=== PATIENT | male | born 1940 | race Caucasian/White ===

== ENCOUNTER 2016-12-10 15:01 | Emergency (ER) | payer MEDICARE ==
[~2016-12-10] VITALS: Ht 170.2 cm; Wt 70.9 kg
[~2016-12-10 15:01] MED LIST: AMLO5TAB2 PO; AZIT500T77 PO; CEFD300C37 PO; HYDR-3240 PO; HYDR-3343 PO; LACT1CAP24 PO; LISI-167; LISI-170 PO; LISI40TA PO; METO100T5 PO; METO50TA82 PO; OMEP-110 PO; TRAM50TA2 PO
[2016-12-10] MEDS ORDERED: ONDANSETRON 2MG/ML, 2ML IVPush ONE (15:30)
[2016-12-10] MEDS ORDERED: SODIUM CHLORIDE 0.9% 1,000ML IVBOLUS ONE (15:30)
[2016-12-10 16:14] LABS: BLOOD UREA NITROGEN 7 mg/dL (7-18)
[2016-12-10 16:17] LABS: ASPARTATE AMINO TRANSFERASE 40 U/L (15-37)
[2016-12-10] MEDS ORDERED: ONDANSETRON 2MG/ML, 2ML ONE (16:33)
[2016-12-10 18:43] VITALS: BP 174/98
== END 2016-12-10 19:32 | disposition home or self-care (01) ==
LOC: ED 17:53
DX: J20.9 Acute bronchitis, unspecified (principal); K40.91 Unilateral inguinal hernia, without obstruction or gangrene, recurrent; F10.10 Alcohol abuse, uncomplicated; I10 Essential (primary) hypertension; Z87.891 Personal history of nicotine dependence
CPT/HCPCS: 36415; 74022; 80053; 81003; 85025; 96361; 96374; 99285; J2405; J7030

== ENCOUNTER 2017-02-06 21:26 | Inpatient (IN) | payer MEDICARE ==
[~2017-02-06] VITALS: Ht 172.7 cm; Wt 73.9 kg
[2017-02-06] MEDS ORDERED: SODIUM CHLORIDE 0.9% 1,000ML IVBOLUS ONE (22:30)
[2017-02-06] MEDS ORDERED: SODIUM CHLORIDE FLUSH 10ML SYR IVF ONE (22:30)
[2017-02-06 22:45] LABS: ASPARTATE AMINO TRANSFERASE 54 U/L (15-37); BLOOD UREA NITROGEN 13 mg/dL (7-18)
[2017-02-06] MEDS ORDERED: ACETAMINOPHEN 500 MG TABLET ONE (23:29)
[2017-02-06] MEDS ORDERED: ACETAMINOPHEN 500 MG TABLET PO ONE (23:30)
[2017-02-07] MEDS ORDERED: NS + 20MEQ KCL 1,000 ML IV SCH (01:40)
[2017-02-07] MEDS ORDERED: ACETAMINOPHEN 325 MG TABLET PO PRN (02:00)
[2017-02-07] MEDS ORDERED: morphine SULFATE 10 MG/ML, 1ML IVPush PRN (02:00)
[2017-02-07] MEDS ORDERED: POLYETHYLENE GLYCOL 17 GM PACKET PO PRN (02:00)
[2017-02-07] MEDS ORDERED: ONDANSETRON 2MG/ML, 2ML IVPush PRN (02:00)
[2017-02-07] MEDS ORDERED: DOCUSATE 100 MG CAPSULE PO PRN (02:00)
[2017-02-07 02:45] VITALS: BP 144/85
[2017-02-07] MEDS: CEFTRIAXONE PMX 1GM/50ML 50 ML IV SCH (03:08)
[2017-02-07] MEDS: ENOXAPARIN 40 MG/0.4 ML SQ SCH (05:42)
[2017-02-07 07:32] VITALS: BP 168/88
[2017-02-07] MEDS: LORazepam 1MG TABLET PO PRN ×2 (07:50→11:28)
[2017-02-07] MEDS: SENNA/DOCUSATE TABLET PO SCH (11:27)
[2017-02-07] MEDS: THIAMINE 100MG TABLET PO SCH (11:27)
[2017-02-07] MEDS: FOLIC ACID 1 MG TABLET PO SCH (11:27)
[2017-02-07] MEDS: MULTIVITAMIN 1 TABLET PO SCH (11:27)
[2017-02-07] MEDS ORDERED: LORazepam 2 MG/ML, 1ML IV PRN ×5 (13:00)
[2017-02-07] MEDS ORDERED: LORazepam 1MG TABLET PO PRN ×4 (13:00)
[2017-02-07] MEDS ORDERED: LORazepam 0.5MG TABLET PO PRN (13:00)
[2017-02-07 14:18] VITALS: BP 137/72
[2017-02-07] MEDS: CHLORDIAZEPOXIDE 25 MG CAPSULE PO SCH ×2 (16:33→21:12)
[2017-02-07 20:01] VITALS: BP 149/94
[2017-02-08 02:00] VITALS: BP 141/87
[2017-02-08] MEDS: CEFTRIAXONE PMX 1GM/50ML 50 ML IV SCH (03:33)
[2017-02-08] MEDS: ENOXAPARIN 40 MG/0.4 ML SQ SCH (05:24)
[2017-02-08 05:53] LABS: ASPARTATE AMINO TRANSFERASE 45 U/L (15-37); BLOOD UREA NITROGEN 8 mg/dL (7-18)
[2017-02-08 06:48] VITALS: BP 164/90
[2017-02-08] MEDS ORDERED: MAGNESIUM SULFATE PMX 2GM/50ML 50 ML IV ONE (08:30)
[2017-02-08] MEDS: SENNA/DOCUSATE TABLET PO SCH (09:00)
[2017-02-08] MEDS: MAGNESIUM OXIDE 400 MG TABLET PO SCH (09:25)
[2017-02-08] MEDS: FOLIC ACID 1 MG TABLET PO SCH (09:25)
[2017-02-08] MEDS: THIAMINE 100MG TABLET PO SCH (09:25)
[2017-02-08] MEDS: MULTIVITAMIN 1 TABLET PO SCH (09:25)
[2017-02-08] MEDS: CHLORDIAZEPOXIDE 25 MG CAPSULE PO SCH (09:25)
[2017-02-08] MEDS: POTASSIUM ACID PHOSPHATE 500 MG TABLET.SOL PO SCH ×3 (09:26→21:06)
[2017-02-08] MEDS: POTASSIUM CHLORIDE 20 MEQ TAB.ER.PRT PO SCH ×2 (12:59→16:41)
[2017-02-08 13:33] VITALS: BP 149/80
[2017-02-08 19:20] VITALS: BP 125/77
[2017-02-08] MEDS ORDERED: morphine SULFATE 10 MG/ML, 1ML IVPush PRN (21:00)
[2017-02-09 01:53] VITALS: BP 119/76
[2017-02-09] MEDS: ACETAMINOPHEN 325 MG TABLET PO PRN ×3 (02:00→22:34)
[2017-02-09] MEDS: POTASSIUM ACID PHOSPHATE 500 MG TABLET.SOL PO SCH ×4 (02:40→22:31)
[2017-02-09] MEDS: CEFTRIAXONE PMX 1GM/50ML 50 ML IV SCH (03:06)
[2017-02-09] MEDS: ENOXAPARIN 40 MG/0.4 ML SQ SCH (05:16)
[2017-02-09 06:10] LABS: BLOOD UREA NITROGEN 6 mg/dL (7-18)
[2017-02-09 08:00] VITALS: BP 140/92
[2017-02-09] MEDS: SENNA/DOCUSATE TABLET PO SCH (09:00)
[2017-02-09] MEDS: POTASSIUM CHLORIDE 20 MEQ TAB.ER.PRT PO SCH ×4 (09:28→16:34)
[2017-02-09] MEDS: THIAMINE 100MG TABLET PO SCH (09:28)
[2017-02-09] MEDS: MULTIVITAMIN 1 TABLET PO SCH (09:28)
[2017-02-09] MEDS: MAGNESIUM OXIDE 400 MG TABLET PO SCH (09:28)
[2017-02-09] MEDS: FOLIC ACID 1 MG TABLET PO SCH (09:28)
[2017-02-09 14:00] VITALS: BP 140/89
[2017-02-09 19:00] VITALS: BP 124/73
[2017-02-10 02:22] VITALS: BP 119/59
[2017-02-10] MEDS: CEFTRIAXONE PMX 1GM/50ML 50 ML IV SCH (03:44)
[2017-02-10] MEDS: POTASSIUM ACID PHOSPHATE 500 MG TABLET.SOL PO SCH ×4 (03:44→20:56)
[2017-02-10] MEDS: ENOXAPARIN 40 MG/0.4 ML SQ SCH (05:19)
[2017-02-10 06:21] LABS: BLOOD UREA NITROGEN 8 mg/dL (7-18)
[2017-02-10 08:20] VITALS: BP 115/74
[2017-02-10] MEDS: FOLIC ACID 1 MG TABLET PO SCH (09:23)
[2017-02-10] MEDS: MULTIVITAMIN 1 TABLET PO SCH (09:23)
[2017-02-10] MEDS: MAGNESIUM OXIDE 400 MG TABLET PO SCH (09:23)
[2017-02-10] MEDS: THIAMINE 100MG TABLET PO SCH (09:24)
[2017-02-10] MEDS: SENNA/DOCUSATE TABLET PO SCH (09:24)
[2017-02-10 13:14] VITALS: BP 133/90
[2017-02-10 19:58] VITALS: BP 123/71
[2017-02-11 01:41] VITALS: BP 120/71
[2017-02-11] MEDS: CEFTRIAXONE PMX 1GM/50ML 50 ML IV SCH (03:30)
[2017-02-11] MEDS: POTASSIUM ACID PHOSPHATE 500 MG TABLET.SOL PO SCH ×2 (03:30→08:48)
[2017-02-11 06:24] VITALS: BP 138/82
[2017-02-11] MEDS: ENOXAPARIN 40 MG/0.4 ML SQ SCH (06:37)
[2017-02-11] MEDS: MULTIVITAMIN 1 TABLET PO SCH (08:48)
[2017-02-11] MEDS: THIAMINE 100MG TABLET PO SCH (08:48)
[2017-02-11] MEDS: FOLIC ACID 1 MG TABLET PO SCH (08:48)
[2017-02-11] MEDS: MAGNESIUM OXIDE 400 MG TABLET PO SCH (08:48)
[2017-02-11] MEDS: SENNA/DOCUSATE TABLET PO SCH (08:49)
[2017-02-11] MEDS ORDERED: METH500T97 PO (10:34)
[2017-02-11 13:12] VITALS: BP 127/81
== END 2017-02-11 13:27 | disposition home or self-care (01) | DRG 871 ==
LOC: ED 21:42 → EDIP 02-07 01:16 → SUATTDRO 02-07 01:27 → 4NOR 02-07 02:25 → DCLOUNGE 02-11 13:16
PROVIDERS: ADMIT Family Medicine; ATTEND Internal Medicine
DX: A41.9 Sepsis, unspecified organism (principal); G93.41 Metabolic encephalopathy; E43 Unspecified severe protein-calorie malnutrition; N39.0 Urinary tract infection, site not specified; F10.239 Alcohol dependence with withdrawal, unspecified; D64.9 Anemia, unspecified; D69.6 Thrombocytopenia, unspecified; E83.39 Other disorders of phosphorus metabolism; E83.42 Hypomagnesemia; E87.6 Hypokalemia; G89.29 Other chronic pain; I10 Essential (primary) hypertension; K29.70 Gastritis, unspecified, without bleeding; M43.10 Spondylolisthesis, site unspecified; K57.90 Diverticulosis of intestine, part unspecified, without perforation or abscess without bleeding; M19.90 Unspecified osteoarthritis, unspecified site; Z59.0 Homelessness; Z68.24 Body mass index [BMI] 24.0-24.9, adult
CPT/HCPCS: 36415; 71010; 72148; 80048; 80053; 81001; 83605; 83690; 83735; 83880; 84100; 85025; 85610; 87040; 87086; 93005; 96360; J0696; J1650; J3480; J3475; J7030

== ENCOUNTER 2017-10-06 09:42 | Emergency (ER) | payer MEDICARE ==
[~2017-10-06] VITALS: Ht 172.7 cm; Wt 90.0 kg
[~2017-10-06 09:42] MED LIST changes: +AZIT500T5 PO; -AZIT500T77 PO; +METH500T97 PO
[2017-10-06 09:52] VITALS: BP 154/85
[2017-10-06] MEDS ORDERED: ALBUTEROL/IPRATROPIUM 2.5MG/0.5MG, 3 ML NPPB SCH (10:30)
[2017-10-06] MEDS ORDERED: THIAMINE 100MG TABLET PO ONE (11:00)
[2017-10-06] MEDS ORDERED: SODIUM CHLORIDE 0.9% 1,000ML IVBOLUS ONE (11:00)
[2017-10-06] MEDS ORDERED: SODIUM CHLORIDE FLUSH 10ML SYR IVF ONE (11:30)
== END 2017-10-06 10:58 | disposition home or self-care (01) ==
LOC: ED 10:20
DX: F10.229 Alcohol dependence with intoxication, unspecified (principal); F43.0 Acute stress reaction; I10 Essential (primary) hypertension; Z87.891 Personal history of nicotine dependence; Y90.9 Presence of alcohol in blood, level not specified
CPT/HCPCS: 99283

== ENCOUNTER 2018-04-24 12:46 | Inpatient (IN) | payer MEDICARE ==
[~2018-04-24] VITALS: Ht 172.7 cm; Wt 77.3 kg
[~2018-04-24 12:46] MED LIST changes: -AMLO5TAB2 PO; +AMLO5TAB7 PO
[2018-04-24] MEDS ORDERED: THIAMINE 100MG TABLET PO ONE (13:00)
[2018-04-24 13:22] LABS: MEAN CORPUSCULAR HEMOGLOBIN 29.5 pg (27.5-34.5); MEAN CORPUSCULAR HGB CONC 33.4 g/dL (33.2-36.2); MEAN CORPUSCULAR VOLUME 88.5 fL (81-97); MEAN PLATELET VOLUME 6.9 fL (7.4-10.4); PLATELET COUNT 269 x10^3/uL (130-400); RED BLOOD COUNT 4.74 x10^6/uL (4.38-5.82); RED CELL DISTRIBUTION WIDTH 23.9 % (9.4-14.8)
[2018-04-24 13:28] LABS: ALBUMIN 3.2 g/dL (3.4-5.0); ANION GAP 8 mmol/L (5-15); CALCIUM 7.8 mg/dL (8.5-10.1); CHLORIDE 108 mmol/L (98-107); CREATININE 0.76 mg/dL (0.7-1.3)
[2018-04-24] MEDS ORDERED: PLEASE ENTER HEIGHT AND WEIGHT MC SCH (13:30)
[2018-04-24] MEDS ORDERED: DIPH,PERTUSS(ACELL),TET VAC/PF 0.5 ML IM-VACC ONE ×2 (13:30→13:35)
[2018-04-24] MEDS ORDERED: THIAMINE 100MG TABLET ONE (13:35)
[2018-04-24 14:05] LABS: BASOPHILS # (AUTO) 0.06 x10^3/uL (0-0.1); BASOPHILS % (AUTO) 1 % (0-1); EOSINOPHILS % (AUTO) 3 % (1-7); LYMPHOCYTES # (AUTO) 2.63 x10^3/uL (1-3.4); LYMPHOCYTES % (AUTO) 24 % (22-44); MD MORPH REVIEW ONLY; MONOCYTES # (AUTO) 0.97 x10^3/uL (0.2-0.8); MONOCYTES % (AUTO) 9 % (2-9); NEUTROPHILS # (AUTO) 7.18 x10^3/uL (1.8-6.8); NEUTROPHILS % (AUTO) 64 % (42-75)
[2018-04-24 14:08] LABS: <PLATELET ESTIMATE> ADEQUATE; <PLT MORPHOLOGY> NORMAL PLT MORPH; ANISOCYTOSIS 2+
[2018-04-24] MEDS ORDERED: BACITRACIN ZINC OINT 500U/GM, 0.9 GM ONE (14:37)
[2018-04-24 14:48] LABS: INTERNATIONAL NORMALIZED RATIO 0.99 (0.93-1.1); PROTHROMBIN TIME 10.3 Seconds (9.6-11.5)
[2018-04-24] MEDS ORDERED: LIDOCAINE-MPF 2%, 2ML ONE (14:55)
[2018-04-24] MEDS ORDERED: CEFAZOLIN PMX 1GM/50ML 50 ML IVPB ONE (15:30)
[2018-04-24] MEDS ORDERED: CEFAZOLIN PMX 1GM/50ML 50 ML ONE (15:33)
[2018-04-24] MEDS ORDERED: DOCUSATE 100 MG CAPSULE PO PRN (16:30)
[2018-04-24] MEDS ORDERED: ACETAMINOPHEN 325 MG TABLET PO PRN (16:30)
[2018-04-24] MEDS ORDERED: ONDANSETRON 2MG/ML, 2ML IVPush PRN (16:30)
[2018-04-24] MEDS ORDERED: ONDANSETRON ODT 4 MG PO PRN (16:30)
[2018-04-24] MEDS ORDERED: ENALAPRILAT 1.25 MG/ML, 2ML IVPush PRN (16:30)
[2018-04-24] MEDS ORDERED: morphine SULFATE 10 MG/ML, 1ML IVPush PRN (16:30)
[2018-04-24] MEDS ORDERED: POLYETHYLENE GLYCOL 17 GM PACKET PO PRN (16:30)
[2018-04-24] MEDS ORDERED: BISACODYL 10 MG SUPP PR PRN (16:30)
[2018-04-24] MEDS ORDERED: POTASSIUM CHLORIDE 20 MEQ, MAGNESIUM SULFATE 2 GM, THIAMINE 200 MG, MVI ADULT 10 ML, FO... IV SCH (17:00)
[2018-04-25 04:00] VITALS: BP 158/101
[2018-04-25 04:55] LABS: CHLORIDE 112 mmol/L (98-107)
[2018-04-25 04:58] LABS: MEAN CORPUSCULAR HEMOGLOBIN 29.3 pg (27.5-34.5); MEAN CORPUSCULAR HGB CONC 33.4 g/dL (33.2-36.2); MEAN CORPUSCULAR VOLUME 87.8 fL (81-97); PLATELET COUNT 214 x10^3/uL (130-400); RED BLOOD COUNT 4.18 x10^6/uL (4.38-5.82); RED CELL DISTRIBUTION WIDTH 24.2 % (9.4-14.8)
[2018-04-25 05:11] LABS: ALANINE AMINOTRANSFERASE 19 U/L (12-78); ALBUMIN 2.6 g/dL (3.4-5.0); ALKALINE PHOSPHATASE 112 U/L (45-117); ANION GAP 9 mmol/L (5-15); BILIRUBIN,TOTAL 1.2 mg/dL (0.2-1.0); CALCIUM 7.1 mg/dL (8.5-10.1); CREATININE 0.71 mg/dL (0.7-1.3); TOTAL PROTEIN 5.7 g/dL (6.4-8.2)
[2018-04-25 05:54] LABS: BASOPHILS # (AUTO) 0.04 x10^3/uL (0-0.1); BASOPHILS % (AUTO) 0 % (0-1); EOSINOPHILS # (AUTO) 0.28 x10^3/uL (0-0.4); EOSINOPHILS % (AUTO) 3 % (1-7); LYMPHOCYTES # (AUTO) 1.55 x10^3/uL (1-3.4); LYMPHOCYTES % (AUTO) 17 % (22-44); MD SCAN; MONOCYTES # (AUTO) 0.78 x10^3/uL (0.2-0.8); MONOCYTES % (AUTO) 8 % (2-9); NEUTROPHILS # (AUTO) 6.73 x10^3/uL (1.8-6.8); NEUTROPHILS % (AUTO) 72 % (42-75)
[2018-04-25] MEDS: LABETALOL 5MG/ML, 20ML IVPush PRN (08:05)
[2018-04-25] MEDS ORDERED: CHLORDIAZEPOXIDE 25 MG CAPSULE PO PRN (11:30)
[2018-04-25] MEDS ORDERED: LORazepam 1MG TABLET PO PRN (11:30)
[2018-04-25] MEDS: THIAMINE 100MG TABLET PO SCH (14:05)
[2018-04-25] MEDS: PANTOPROZOLE 40MG TABLET PO SCH (14:05)
[2018-04-25] MEDS: MULTIVITAMINS/MINERALS TABLET PO SCH (14:05)
[2018-04-25] MEDS: LISINOPRIL 10 MG TABLET PO SCH (14:05)
[2018-04-25 18:32] VITALS: BP 156/78
[2018-04-26] MEDS: LISINOPRIL 10 MG TABLET PO SCH ×3 (00:04→23:23)
[2018-04-26 03:40] VITALS: BP 188/87
[2018-04-26 05:31] LABS: ANION GAP 8 mmol/L (5-15); CALCIUM 7.5 mg/dL (8.5-10.1); CHLORIDE 111 mmol/L (98-107)
[2018-04-26 05:46] LABS: MEAN CORPUSCULAR HEMOGLOBIN 30.1 pg (27.5-34.5); MEAN CORPUSCULAR HGB CONC 33.7 g/dL (33.2-36.2); MEAN CORPUSCULAR VOLUME 89.3 fL (81-97); MEAN PLATELET VOLUME 7.3 fL (7.4-10.4); PLATELET COUNT 198 x10^3/uL (130-400); RED BLOOD COUNT 3.95 x10^6/uL (4.38-5.82); RED CELL DISTRIBUTION WIDTH 24.3 % (9.4-14.8)
[2018-04-26 06:29] LABS: BASOPHILS # (AUTO) 0.07 x10^3/uL (0-0.1); BASOPHILS % (AUTO) 1 % (0-1); EOSINOPHILS # (AUTO) 0.29 x10^3/uL (0-0.4); EOSINOPHILS % (AUTO) 3 % (1-7); LYMPHOCYTES # (AUTO) 1.45 x10^3/uL (1-3.4); LYMPHOCYTES % (AUTO) 17 % (22-44); MD SCAN; MONOCYTES # (AUTO) 0.73 x10^3/uL (0.2-0.8); MONOCYTES % (AUTO) 9 % (2-9); NEUTROPHILS # (AUTO) 5.98 x10^3/uL (1.8-6.8); NEUTROPHILS % (AUTO) 70 % (42-75)
[2018-04-26 08:10] VITALS: BP 154/88
[2018-04-26] MEDS: PANTOPROZOLE 40MG TABLET PO SCH (08:12)
[2018-04-26] MEDS: FOLIC ACID 1 MG TABLET PO SCH (08:12)
[2018-04-26] MEDS: MULTIVITAMINS/MINERALS TABLET PO SCH (08:12)
[2018-04-26] MEDS: THIAMINE 100MG TABLET PO SCH (12:00)
[2018-04-26 20:48] VITALS: BP 190/113
[2018-04-26 23:20] VITALS: BP 167/72
[2018-04-26] MEDS: LABETALOL 5MG/ML, 20ML IVPush PRN (23:23)
[2018-04-27] VITALS (8 sets, daily range): BP systolic 130–172; BP diastolic 72–107
[2018-04-27 01:26] LABS: CLOSTRIDIUM DIFFICILE ANTIGEN POSITIVE; CLOSTRIDIUM DIFFICILE TOXIN NEGATIVE (Negative)
[2018-04-27] MEDS: PANTOPROZOLE 40MG TABLET PO SCH (08:05)
[2018-04-27] MEDS: FOLIC ACID 1 MG TABLET PO SCH (08:05)
[2018-04-27] MEDS: MULTIVITAMINS/MINERALS TABLET PO SCH (08:05)
[2018-04-27] MEDS: THIAMINE 100MG TABLET PO SCH (12:22)
[2018-04-27] MEDS: LISINOPRIL 10 MG TABLET PO SCH ×2 (12:22→22:35)
[2018-04-28 00:33] VITALS: BP 145/75
[2018-04-28 07:30] VITALS: BP 141/79
[2018-04-28] MEDS: PANTOPROZOLE 40MG TABLET PO SCH (07:54)
[2018-04-28] MEDS: MULTIVITAMINS/MINERALS TABLET PO SCH (07:54)
[2018-04-28] MEDS: FOLIC ACID 1 MG TABLET PO SCH (07:54)
[2018-04-28] MEDS: LISINOPRIL 10 MG TABLET PO SCH (11:10)
[2018-04-28] MEDS: THIAMINE 100MG TABLET PO SCH (11:11)
[2018-04-28] MEDS ORDERED: FOLI-17 PO (12:15)
[2018-04-28] MEDS ORDERED: ACET325T14 PO (12:15)
[2018-04-28] MEDS ORDERED: THIA100T67 PO (12:15)
[2018-04-28] MEDS ORDERED: PANT40TA5 PO (12:15)
[2018-04-28] MEDS ORDERED: MULT-484 PO (12:15)
[2018-04-28] MEDS ORDERED: LISI-167 PO (12:15)
[2018-04-28 13:12] VITALS: BP 139/72
== END 2018-04-28 14:31 | disposition home or self-care (01) | DRG 86 ==
LOC: ED 15:43 → EDIP 15:44 → CCU 16:38 → 4EST 04-25 17:53
PROVIDERS: ADMIT Internal Medicine; ATTEND Internal Medicine
PROC: 2W3KX2Z Immobilization of Left Finger using Cast (ICD-10-PCS; principal; 2018-04-24)
DX: S06.5X0A Traumatic subdural hemorrhage without loss of consciousness, initial encounter (principal); F10.239 Alcohol dependence with withdrawal, unspecified; S62.608A Fracture of unspecified phalanx of other finger, initial encounter for closed fracture; M54.30 Sciatica, unspecified side; K57.90 Diverticulosis of intestine, part unspecified, without perforation or abscess without bleeding; S61.412A Laceration without foreign body of left hand, initial encounter; I10 Essential (primary) hypertension; W01.0XXA Fall on same level from slipping, tripping and stumbling without subsequent striking against object, initial encounter; Y93.01 Activity, walking, marching and hiking; D72.829 Elevated white blood cell count, unspecified; M43.10 Spondylolisthesis, site unspecified; F10.229 Alcohol dependence with intoxication, unspecified; K46.9 Unspecified abdominal hernia without obstruction or gangrene; Y92.89 Other specified places as the place of occurrence of the external cause; Z88.5 Allergy status to narcotic agent; Z98.1 Arthrodesis status; Z91.19 Patient's noncompliance with other medical treatment and regimen; Z90.49 Acquired absence of other specified parts of digestive tract; Y99.8 Other external cause status
CPT/HCPCS: 36415; 70450; 70486; 72125; 80048; 80053; 80307; 82040; 83735; 84100; 84443; 85025; 85610; 85730; 87081; 87324; 87493; 90471; 90715; 93005; 96374; 99285; G0378; J0690; J3411; J3475; J3480; J7042

== ENCOUNTER 2018-06-10 18:50 | Inpatient (IN) | payer MEDICARE ==
[~2018-06-10] VITALS: Ht 170.2 cm; Wt 81.1 kg
[~2018-06-10 18:50] MED LIST changes: +ACET325T14 PO; +FOLI-17 PO; +LISI-167 PO; +MULT-484 PO; +PANT40TA5 PO; +THIA100T67 PO
[2018-06-10] MEDS ORDERED: CEFTRIAXONE 1,000 MG in SODIUM CHLORIDE 0.9% 50 ML IVPB ONE (19:30)
[2018-06-10] MEDS ORDERED: SODIUM CHLORIDE FLUSH 10ML SYR IVF ONE (19:30)
[2018-06-10 19:57] LABS: MEAN CORPUSCULAR HEMOGLOBIN 30.9 pg (27.5-34.5); MEAN CORPUSCULAR HGB CONC 32.7 g/dL (33.2-36.2); MEAN CORPUSCULAR VOLUME 94.4 fL (81-97); MEAN PLATELET VOLUME 7.1 fL (7.4-10.4); PLATELET COUNT 422 x10^3/uL (130-400); RED CELL DISTRIBUTION WIDTH 16.6 % (9.4-14.8)
[2018-06-10 20:10] LABS: ALANINE AMINOTRANSFERASE 24 U/L (12-78); ALBUMIN 2.5 g/dL (3.4-5.0); ANION GAP 10 mmol/L (5-15); CALCIUM 8.1 mg/dL (8.5-10.1); CHLORIDE 104 mmol/L (98-107); CREATININE 0.63 mg/dL (0.7-1.3)
[2018-06-10] MEDS ORDERED: CEFTRIAXONE PMX 1GM/50ML 50 ML ONE (20:10)
[2018-06-10 20:13] LABS: ALKALINE PHOSPHATASE 161 U/L (45-117); BASOPHILS # (AUTO) 0.06 x10^3/uL (0-0.1); BASOPHILS % (AUTO) 1 % (0-1); BILIRUBIN,TOTAL 0.4 mg/dL (0.2-1.0); EOSINOPHILS # (AUTO) 1.85 x10^3/uL (0-0.4); EOSINOPHILS % (AUTO) 15 % (1-7); LYMPHOCYTES # (AUTO) 1.34 x10^3/uL (1-3.4); LYMPHOCYTES % (AUTO) 11 % (22-44); MD SCAN; MONOCYTES # (AUTO) 1.04 x10^3/uL (0.2-0.8); MONOCYTES % (AUTO) 8 % (2-9); NEUTROPHILS # (AUTO) 8.37 x10^3/uL (1.8-6.8); NEUTROPHILS % (AUTO) 66 % (42-75); TOTAL PROTEIN 7.5 g/dL (6.4-8.2)
[2018-06-10] MEDS ORDERED: DIPHENHYDRAMINE 25 MG CAPSULE PO ONE (21:00)
[2018-06-10] MEDS ORDERED: HYDROcodone/APAP 5/325 TABLET PO ONE (21:00)
[2018-06-10] MEDS ORDERED: HYDROcodone/APAP 5/325 TABLET ONE (21:02)
[2018-06-10] MEDS ORDERED: DIPHENHYDRAMINE 25 MG CAPSULE ONE (21:02)
[2018-06-10] MEDS ORDERED: LISINOPRIL 10 MG TABLET ONE (21:17)
[2018-06-10] MEDS: LISINOPRIL 10 MG TABLET PO SCH (21:20)
[2018-06-10] MEDS: AMPICILLIN/SULBACTAM 3 GM in SODIUM CHLORIDE 0.9% 100 ML IV SCH (21:21)
[2018-06-10] MEDS ORDERED: HEPARIN 5,000 UNITS/ML, 1ML ONE (21:26)
[2018-06-10] MEDS: HEPARIN 5,000 UNITS/ML, 1ML SQ SCH (21:29)
[2018-06-10] MEDS ORDERED: POLYETHYLENE GLYCOL 17 GM PACKET PO PRN (21:30)
[2018-06-10] MEDS ORDERED: VANCOMYCIN PER PHARMACY MC PRN (21:30)
[2018-06-10] MEDS ORDERED: SODIUM CHLORIDE FLUSH 10ML SYR IVF PRN (21:30)
[2018-06-10] MEDS ORDERED: BISACODYL 10 MG SUPP PR PRN (21:30)
[2018-06-10] MEDS ORDERED: ACETAMINOPHEN 325 MG TABLET PO PRN (21:30)
[2018-06-10] MEDS ORDERED: THIAMINE 100MG TABLET ONE (22:48)
[2018-06-10 23:00] VITALS: BP 152/100
[2018-06-10] MEDS ORDERED: VANCOMYCIN 1,200 MG in SODIUM CHLORIDE 0.9% 250 ML IV SCH (23:00)
[2018-06-10] MEDS ORDERED: PHARMACOKINETIC MONITORING MC PRN (23:00)
[2018-06-10] MEDS ORDERED: PHARMACOKINETIC CONSULTATION MC ONE (23:00)
[2018-06-10] MEDS: THIAMINE 100MG TABLET PO SCH (23:02)
[2018-06-10] MEDS: SODIUM CHLORIDE 0.9% 1,000 ML IV SCH (23:02)
[2018-06-10] MEDS ORDERED: hydrALAzine 20 MG/ML, 1ML IV PRN (23:30)
[2018-06-10] MEDS: PERMETHRIN CRM 5%, 60GM TP SCH (23:40)
[2018-06-11 03:20] VITALS: BP 124/68
[2018-06-11] MEDS: AMPICILLIN/SULBACTAM 3 GM in SODIUM CHLORIDE 0.9% 100 ML IV SCH ×4 (03:35→21:19)
[2018-06-11 05:00] LABS: BASOPHILS # (AUTO) 0.16 x10^3/uL (0-0.1); BASOPHILS % (AUTO) 1 % (0-1); EOSINOPHILS # (AUTO) 0.59 x10^3/uL (0-0.4); EOSINOPHILS % (AUTO) 4 % (1-7); LYMPHOCYTES # (AUTO) 0.81 x10^3/uL (1-3.4); LYMPHOCYTES % (AUTO) 6 % (22-44); MD NO; MEAN CORPUSCULAR HEMOGLOBIN 30.8 pg (27.5-34.5); MEAN CORPUSCULAR VOLUME 93.5 fL (81-97); MEAN PLATELET VOLUME 7.2 fL (7.4-10.4); MONOCYTES # (AUTO) 1.13 x10^3/uL (0.2-0.8); MONOCYTES % (AUTO) 9 % (2-9); NEUTROPHILS # (AUTO) 10.59 x10^3/uL (1.8-6.8); NEUTROPHILS % (AUTO) 80 % (42-75); PLATELET COUNT 337 x10^3/uL (130-400); RED CELL DISTRIBUTION WIDTH 16.4 % (9.4-14.8)
[2018-06-11 05:07] LABS: CHLORIDE 108 mmol/L (98-107)
[2018-06-11 05:14] LABS: ALANINE AMINOTRANSFERASE 20 U/L (12-78); ALBUMIN 1.9 g/dL (3.4-5.0); ALKALINE PHOSPHATASE 112 U/L (45-117); ANION GAP 8 mmol/L (5-15); BILIRUBIN,TOTAL 0.7 mg/dL (0.2-1.0); CALCIUM 7.2 mg/dL (8.5-10.1); CREATININE 0.48 mg/dL (0.7-1.3); TOTAL PROTEIN 5.8 g/dL (6.4-8.2)
[2018-06-11] MEDS: HEPARIN 5,000 UNITS/ML, 1ML SQ SCH ×3 (05:41→21:20)
[2018-06-11] MEDS: SODIUM CHLORIDE 0.9% 1,000 ML IV SCH ×3 (05:41→21:19)
[2018-06-11] MEDS: FOLIC ACID 1 MG TABLET PO SCH (08:55)
[2018-06-11] MEDS: PANTOPROZOLE 40MG TABLET PO SCH (08:55)
[2018-06-11] MEDS: MULTIVITAMINS/MINERALS TABLET PO SCH (08:55)
[2018-06-11] MEDS: LISINOPRIL 10 MG TABLET PO SCH ×2 (08:56→21:20)
[2018-06-11] MEDS: SENNA/DOCUSATE TABLET PO SCH (08:56)
[2018-06-11 09:03] VITALS: BP 129/82
[2018-06-11] MEDS: PERMETHRIN CRM 5%, 60GM TP SCH (12:14)
[2018-06-11 14:30] VITALS: BP 128/72
[2018-06-11 21:18] VITALS: BP 115/67
[2018-06-11] MEDS: THIAMINE 100MG TABLET PO SCH (21:20)
[2018-06-11] MEDS: VANCOMYCIN 1,400 MG in SODIUM CHLORIDE 0.9% 250 ML IV SCH (23:45)
[2018-06-12 01:22] VITALS: BP 109/67
[2018-06-12] MEDS: AMPICILLIN/SULBACTAM 3 GM in SODIUM CHLORIDE 0.9% 100 ML IV SCH ×4 (04:11→21:10)
[2018-06-12 04:58] LABS: MEAN CORPUSCULAR HEMOGLOBIN 30.8 pg (27.5-34.5); MEAN CORPUSCULAR HGB CONC 32.8 g/dL (33.2-36.2); MEAN CORPUSCULAR VOLUME 93.9 fL (81-97); MEAN PLATELET VOLUME 7.4 fL (7.4-10.4); PLATELET COUNT 308 x10^3/uL (130-400); RED BLOOD COUNT 3.53 x10^6/uL (4.38-5.82); RED CELL DISTRIBUTION WIDTH 16.4 % (9.4-14.8)
[2018-06-12 05:04] LABS: ANION GAP 9 mmol/L (5-15); CALCIUM 7.1 mg/dL (8.5-10.1); CHLORIDE 109 mmol/L (98-107)
[2018-06-12 05:05] LABS: CREATININE 0.46 mg/dL (0.7-1.3)
[2018-06-12] MEDS: HEPARIN 5,000 UNITS/ML, 1ML SQ SCH ×3 (05:36→21:31)
[2018-06-12 06:02] LABS: BASOPHILS % (AUTO) 1 % (0-1); EOSINOPHILS # (AUTO) 0.84 x10^3/uL (0-0.4); EOSINOPHILS % (AUTO) 8 % (1-7); LYMPHOCYTES # (AUTO) 1.06 x10^3/uL (1-3.4); LYMPHOCYTES % (AUTO) 10 % (22-44); MD SCAN; MONOCYTES # (AUTO) 0.93 x10^3/uL (0.2-0.8); MONOCYTES % (AUTO) 9 % (2-9); NEUTROPHILS # (AUTO) 7.71 x10^3/uL (1.8-6.8); NEUTROPHILS % (AUTO) 73 % (42-75)
[2018-06-12 06:56] VITALS: BP 115/77
[2018-06-12] MEDS: SENNA/DOCUSATE TABLET PO SCH (09:00)
[2018-06-12] MEDS: MULTIVITAMINS/MINERALS TABLET PO SCH (10:29)
[2018-06-12] MEDS: PANTOPROZOLE 40MG TABLET PO SCH (10:29)
[2018-06-12] MEDS: FOLIC ACID 1 MG TABLET PO SCH (10:30)
[2018-06-12] MEDS: SODIUM CHLORIDE 0.9% 1,000 ML IV SCH (11:04)
[2018-06-12 11:05] VITALS: BP 115/67
[2018-06-12 12:00] VITALS: BP 128/70
[2018-06-12] MEDS: LISINOPRIL 10 MG TABLET PO SCH (12:46)
[2018-06-12] MEDS: OXYcodone/APAP 5/325MG TABLET PO PRN ×2 (15:23→21:32)
[2018-06-12 20:33] VITALS: BP 120/73
[2018-06-12] MEDS: THIAMINE 100MG TABLET PO SCH (21:32)
[2018-06-13] MEDS: LISINOPRIL 10 MG TABLET PO SCH ×2 (01:03→10:19)
[2018-06-13] MEDS: VANCOMYCIN 1,400 MG in SODIUM CHLORIDE 0.9% 250 ML IV SCH (01:04)
[2018-06-13 01:05] VITALS: BP 128/53
[2018-06-13] MEDS: AMPICILLIN/SULBACTAM 3 GM in SODIUM CHLORIDE 0.9% 100 ML IV SCH ×4 (03:40→21:33)
[2018-06-13 04:43] LABS: BASOPHILS % (AUTO) 1 % (0-1); EOSINOPHILS # (AUTO) 1.27 x10^3/uL (0-0.4); EOSINOPHILS % (AUTO) 13 % (1-7); LYMPHOCYTES # (AUTO) 1.19 x10^3/uL (1-3.4); LYMPHOCYTES % (AUTO) 12 % (22-44); MD NO; MEAN CORPUSCULAR HEMOGLOBIN 30.8 pg (27.5-34.5); MEAN CORPUSCULAR HGB CONC 32.4 g/dL (33.2-36.2); MEAN CORPUSCULAR VOLUME 94.9 fL (81-97); MEAN PLATELET VOLUME 7.4 fL (7.4-10.4); MONOCYTES # (AUTO) 0.98 x10^3/uL (0.2-0.8); MONOCYTES % (AUTO) 10 % (2-9); NEUTROPHILS # (AUTO) 6.05 x10^3/uL (1.8-6.8); NEUTROPHILS % (AUTO) 63 % (42-75); PLATELET COUNT 293 x10^3/uL (130-400); RED BLOOD COUNT 3.45 x10^6/uL (4.38-5.82); RED CELL DISTRIBUTION WIDTH 16.4 % (9.4-14.8)
[2018-06-13 04:56] LABS: ANION GAP 7 mmol/L (5-15); CALCIUM 7.1 mg/dL (8.5-10.1); CHLORIDE 110 mmol/L (98-107)
[2018-06-13 04:57] LABS: CREATININE 0.55 mg/dL (0.7-1.3)
[2018-06-13] MEDS: HEPARIN 5,000 UNITS/ML, 1ML SQ SCH ×3 (05:43→21:34)
[2018-06-13 07:45] VITALS: BP 156/84
[2018-06-13] MEDS: SENNA/DOCUSATE TABLET PO SCH (09:00)
[2018-06-13] MEDS: SODIUM CHLORIDE 0.9% 1,000 ML IV SCH ×3 (09:12→21:33)
[2018-06-13] MEDS: PANTOPROZOLE 40MG TABLET PO SCH (10:17)
[2018-06-13] MEDS: FOLIC ACID 1 MG TABLET PO SCH (10:18)
[2018-06-13] MEDS: MULTIVITAMINS/MINERALS TABLET PO SCH (10:20)
[2018-06-13 14:41] VITALS: BP 155/88
[2018-06-13 19:51] VITALS: BP 146/85
[2018-06-13] MEDS: THIAMINE 100MG TABLET PO SCH (21:33)
[2018-06-13] MEDS: ONDANSETRON ODT 4 MG PO PRN (21:41)
[2018-06-13] MEDS: OXYcodone/APAP 5/325MG TABLET PO PRN (21:42)
[2018-06-14 00:05] VITALS: BP 137/75
[2018-06-14] MEDS: SODIUM CHLORIDE 0.9% 1,000 ML IV SCH (00:24)
[2018-06-14] MEDS: LISINOPRIL 10 MG TABLET PO SCH ×2 (00:24→14:06)
[2018-06-14] MEDS ORDERED: VANCOMYCIN 1,400 MG in SODIUM CHLORIDE 0.9% 250 ML IV SCH (01:00)
[2018-06-14] MEDS: AMPICILLIN/SULBACTAM 3 GM in SODIUM CHLORIDE 0.9% 100 ML IV SCH ×4 (03:30→19:18)
[2018-06-14] MEDS: ONDANSETRON ODT 4 MG PO PRN (04:50)
[2018-06-14] MEDS: HEPARIN 5,000 UNITS/ML, 1ML SQ SCH ×3 (04:51→20:12)
[2018-06-14 07:29] VITALS: BP 163/83
[2018-06-14] MEDS: PANTOPROZOLE 40MG TABLET PO SCH (09:25)
[2018-06-14] MEDS: SENNA/DOCUSATE TABLET PO SCH (09:25)
[2018-06-14] MEDS: MULTIVITAMINS/MINERALS TABLET PO SCH (09:25)
[2018-06-14] MEDS: FOLIC ACID 1 MG TABLET PO SCH (09:26)
[2018-06-14 13:42] VITALS: BP 149/79
[2018-06-14] MEDS: OXYcodone/APAP 5/325MG TABLET PO PRN ×2 (19:03→20:11)
[2018-06-14 19:49] VITALS: BP 125/63
[2018-06-14] MEDS: DIPHENHYDRAMINE 25 MG CAPSULE PO PRN (20:11)
[2018-06-14] MEDS: THIAMINE 100MG TABLET PO SCH (20:11)
[2018-06-14] MEDS: VANCOMYCIN 1,600 MG in SODIUM CHLORIDE 0.9% 250 ML IV SCH (20:13)
[2018-06-15 00:30] VITALS: BP 130/77
[2018-06-15] MEDS: LISINOPRIL 10 MG TABLET PO SCH ×2 (01:33→12:57)
[2018-06-15] MEDS: AMPICILLIN/SULBACTAM 3 GM in SODIUM CHLORIDE 0.9% 100 ML IV SCH ×2 (01:33→08:22)
[2018-06-15] MEDS: HEPARIN 5,000 UNITS/ML, 1ML SQ SCH ×3 (05:23→20:50)
[2018-06-15 06:33] VITALS: BP 136/79
[2018-06-15] MEDS: PANTOPROZOLE 40MG TABLET PO SCH (08:22)
[2018-06-15] MEDS: FOLIC ACID 1 MG TABLET PO SCH (08:23)
[2018-06-15] MEDS: SENNA/DOCUSATE TABLET PO SCH (08:24)
[2018-06-15] MEDS: MULTIVITAMINS/MINERALS TABLET PO SCH (08:24)
[2018-06-15] MEDS: AMOXICILLIN/CLAV 875-125MG TABLET PO SCH ×2 (11:47→20:50)
[2018-06-15 12:56] VITALS: BP 157/89
[2018-06-15] MEDS: OXYcodone/APAP 5/325MG TABLET PO PRN (18:09)
[2018-06-15 19:43] VITALS: BP 142/70
[2018-06-15] MEDS: VANCOMYCIN 1,600 MG in SODIUM CHLORIDE 0.9% 250 ML IV SCH (20:49)
[2018-06-15] MEDS: THIAMINE 100MG TABLET PO SCH (20:50)
[2018-06-15] MEDS: DIPHENHYDRAMINE 25 MG CAPSULE PO PRN (20:50)
[2018-06-16 00:28] VITALS: BP 138/88
[2018-06-16] MEDS: LISINOPRIL 10 MG TABLET PO SCH (01:51)
[2018-06-16] MEDS: HEPARIN 5,000 UNITS/ML, 1ML SQ SCH (04:48)
[2018-06-16] MEDS: OXYcodone/APAP 5/325MG TABLET PO PRN (04:48)
[2018-06-16 06:42] VITALS: BP 131/74
[2018-06-16] MEDS ORDERED: SULF1TAB24 PO (08:30)
[2018-06-16] MEDS: SENNA/DOCUSATE TABLET PO SCH (09:45)
[2018-06-16] MEDS: MULTIVITAMINS/MINERALS TABLET PO SCH (09:45)
[2018-06-16] MEDS: FOLIC ACID 1 MG TABLET PO SCH (09:45)
[2018-06-16] MEDS: PANTOPROZOLE 40MG TABLET PO SCH (09:46)
[2018-06-16] MEDS: AMOXICILLIN/CLAV 875-125MG TABLET PO SCH (09:46)
== END 2018-06-16 10:40 | disposition home or self-care (01) | DRG 871 ==
LOC: ED 21:37 → EDIP 21:40 → 3NW 22:45
PROVIDERS: ADMIT Hospitalist; ATTEND Hospitalist
DX: A41.9 Sepsis, unspecified organism (principal); E43 Unspecified severe protein-calorie malnutrition; L03.115 Cellulitis of right lower limb; L03.116 Cellulitis of left lower limb; Z68.28 Body mass index [BMI] 28.0-28.9, adult; F10.10 Alcohol abuse, uncomplicated; G89.29 Other chronic pain; I11.9 Hypertensive heart disease without heart failure; K40.90 Unilateral inguinal hernia, without obstruction or gangrene, not specified as recurrent; K57.90 Diverticulosis of intestine, part unspecified, without perforation or abscess without bleeding; L29.9 Pruritus, unspecified; M43.16 Spondylolisthesis, lumbar region; M47.816 Spondylosis without myelopathy or radiculopathy, lumbar region; M48.061 Spinal stenosis, lumbar region without neurogenic claudication; M51.36 Other intervertebral disc degeneration, lumbar region; M51.37 Other intervertebral disc degeneration, lumbosacral region; Z59.0 Homelessness; Z91.14 Patient's other noncompliance with medication regimen; Z90.49 Acquired absence of other specified parts of digestive tract; Z88.5 Allergy status to narcotic agent
CPT/HCPCS: 36415; 71045; 72146; 72148; 76870; 80048; 80053; 80202; 83605; 85025; 87040; 93005; 93970; 96365; G0378; J0295; J0696; J1644; J3370; Q0162; J0360; J7030; J7050; Q0163

== ENCOUNTER 2018-09-16 22:39 | Inpatient (IN) | payer MEDICARE ==
[~2018-09-16] VITALS: Ht 165.1 cm; Wt 66.4 kg
[~2018-09-16 22:39] MED LIST changes: +AMLO-150 PO; -AMLO5TAB7 PO; +SULF1TAB24 PO
--- NOTE | 2018-09-16 23:07 | NUR ---
PT PRESENTS TO ED WITH C/O BILATERAL LOWER AND UPPER BACK PAIN X 5 YEARS BUT WORSE X LAST 3 DAYS AFTER PUSHING CART. [facility], PANTS COVERED IN OWN FECES. PT STATES "I COULDN'T GET TO THE BATHROOM IN TIME." PT ALSO REQUESTS "CAN I STAY HERE FOR A FEW DAYS?" EDMD VANBIBBER AT BEDSIDE TO ASSESS PT. ALL MONITORS IN PLACE. PT IS SINUS TACH RATE 130'S WITH NO ECTOPY. CALL LIGHT IN REACH. EDMD VANBIBBER AT BEDSIDE TO ASSESS.
[2018-09-16] MEDS ORDERED: IBUPROFEN 600 MG TABLET PO ONE (23:30)
[2018-09-16] MEDS ORDERED: ACETAMINOPHEN 500 MG TABLET PO ONE (23:30)
[2018-09-16 23:38] LABS: MEAN CORPUSCULAR HEMOGLOBIN 26.2 pg (27.5-34.5); MEAN CORPUSCULAR HGB CONC 32.8 g/dL (33.2-36.2); MEAN CORPUSCULAR VOLUME 79.9 fL (81-97); MEAN PLATELET VOLUME 8.5 fL (7.4-10.4); PLATELET COUNT 257 x10^3/uL (130-400); RED BLOOD COUNT 4.59 x10^6/uL (4.38-5.82)
[2018-09-16 23:39] LABS: ANION GAP 9 mmol/L (5-15); CALCIUM 8.2 mg/dL (8.5-10.1); CHLORIDE 103 mmol/L (98-107); CREATININE 1.04 mg/dL (0.7-1.3)
[2018-09-16 23:48] LABS: MICROSCOPIC INDICATED
--- NOTE | 2018-09-16 23:51 | NUR ---
pt provided with full bed bath, placed in clean gown. sheets changed. urine sent to lab. ekg completed and reviewed by edmd , pt's hr is 130s with no ectopy, slightly irregular. rn unable to assess whether rhythm is afib vs sinus tach, per EKG pt is in sinus tach. edmd notified pt remains tachycardic rate 130s. order received for ns bolus. edta at bedside for piv start.
--- NOTE | 2018-09-16 23:56 | NUR ---
edmd notified pt has severe scrotal edema noted during bed bath
[2018-09-16 23:57] LABS: CULTURE INDICATED? YES
[2018-09-16] MEDS ORDERED: ACETAMINOPHEN 500 MG TABLET ONE (23:58)
[2018-09-16] MEDS ORDERED: IBUPROFEN 600 MG TABLET ONE (23:58)
[2018-09-17] MEDS ORDERED: SODIUM CHLORIDE 0.9% 1,000ML IVBOLUS ONE
--- NOTE | 2018-09-17 00:02 | NUR ---
lab results reviewed by josué vazquez. report given to MOLLY Oconnor who is to assume care.
[2018-09-17 00:13] LABS: HCT (SEDRATE) 38.5 % (39.2-51.8)
[2018-09-17 00:15] LABS: MD YES
--- NOTE | 2018-09-17 00:15 | NUR ---
Report from Hetal RN, fluids infusing, pt remains on cont cardiac and pulse ox monitoring. Pt denies CP, reports cough x5 days.
[2018-09-17] MEDS ORDERED: PIPERACILLIN/TAZO/PMX 3.375GM 50 ML ONE (00:18)
[2018-09-17 00:19] LABS: BAND#(MANUAL) 5.06 x10^3/uL; BANDS%(MANUAL) 15 % (0-7); LYMPH#(MANUAL) 1.01 x10^3/uL (1-3.4); LYMPHS% (MANUAL) 3 % (22-44); MONOS#(MANUAL) 2.36 x10^3/uL (0.3-2.7); MONOS% (MANUAL) 7 % (2-9); REACTIVE LYMPHS # (MANUAL) 1.01 x10^3/uL (0-0); REACTIVE LYMPHS % (MANUAL) 3 % (0-0); SEG#(MANUAL) 24.26 x10^3/uL (1.8-6.8); SEGS% (MANUAL) 72 % (42-75)
[2018-09-17 00:20] LABS: ANISOCYTOSIS 1+
[2018-09-17 00:21] LABS: <PLATELET ESTIMATE> ADEQUATE
[2018-09-17 00:22] LABS: LARGE PLATELETS 1+
[2018-09-17] MEDS ORDERED: VANCOMYCIN 1,400 MG in SODIUM CHLORIDE 0.9% 250 ML IV ONE (00:30)
[2018-09-17] MEDS ORDERED: VANCOMYCIN PER PHARMACY MC PRN ×2 (00:30→04:30)
[2018-09-17] MEDS ORDERED: PIPERACILLIN/TAZO/PMX 3.375GM 50 ML IV ONE (00:30)
[2018-09-17 00:36] LABS: RAPID INFLUENZA A Negative (Negative); RAPID INFLUENZA B Negative (Negative)
[2018-09-17] MEDS ORDERED: SODIUM CHLORIDE 0.9% 1,000 ML IV ONE (01:00)
--- NOTE | 2018-09-17 01:07 | NUR ---
REPORT RECEIVED AND CARE ASSUMED. PT C/O SIG LBP. ADJUSTING BED REQUESTED TO HELP WITH COMFORT. PT SINUS TACHY ON MONITOR. ANTIBIOTICS INFUSING VIA PUMP. 1 L BOLUS INFUSING. PT INSTRUCTED TO NOT GET OUT OF BED WITHOUT ASSIST AND AGREES. CALL LIGHT IN REACH. DISCUSSED PT STATUS WITH ERP--PT TO RECEIVE FURTHER FLUIDS @ 250ML/HR AFTER FIRST LITER S/T BILAT LE EDEMA.
[2018-09-17] MEDS ORDERED: MORPHINE SULFATE 4 MG/ML, 1ML ONE (01:42)
--- NOTE | 2018-09-17 01:50 | NUR ---
PT MEDICATED PER MAR FOR SEVERE LBP. PT BP STABLE AT THIS TIME. DISCUSSED FALL RISK WITH PT. PT VERBALIZES UNDERSTANDING. CALL LIGHT IN REACH.
[2018-09-17] MEDS ORDERED: MORPHINE SULFATE 4 MG/ML, 1ML IVPush ONE (02:00)
[2018-09-17] MEDS ORDERED: METOPROLOL 1 MG/ML, 5ML IVPush ONE (02:30)
--- NOTE | 2018-09-17 02:35 | NUR ---
PT TRANSFERRED TO HOSPITAL BED S/T ICU HOLD IN ER. PT HYPOTENSIVE AFTER MORPHINE. ERP AWARE AND WANTS TO RECHECK BP IN 10 MINUTES. FLUIDS INFUSING. PT REMAINS SINUS TACHY ON MONITOR WHICH IS VERY IRREGULAR. PT REQUESTING MULTIPLE TIMES FOR WATER--ERP AWARE AND WANTS NPO AT THIS TIME. PT AWARE. PT REQUESTING TO SIT ON SIDE OF BED MULTIPLE TIMES--DISCUSSED WITH PT THAT HIS CURRENT VS DO NOT ALLOW FOR HIM TO DO THIS SAFELY. PT VERBALIZES UNDERSTANDING OF ALL. CALL LIGHT IN REACH.
[2018-09-17] MEDS ORDERED: ONDANSETRON 2MG/ML, 2ML ONE (02:56)
[2018-09-17] MEDS ORDERED: PHARMACY MAY ADJ FOR RENAL FX MC PRN (03:00)
[2018-09-17] MEDS ORDERED: PIPERACILLIN/TAZO/PMX 4.5GM 100 ML IVPB SCH (03:00)
--- NOTE | 2018-09-17 03:18 | NUR ---
PT REMAINS HYPOTENSIVE. PT MOVED TO TRAUMA 3 FOR CENTRAL LINE PLACEMENT AND PRESSORS. REPORT TO SAMANTHA BARNES. ERP AT BEDSIDE.
[2018-09-17] MEDS ORDERED: MIDAZOLAM 1 MG/ML, 2ML ONE (03:20)
[2018-09-17] MEDS: NOREPINEPHRINE 4 MG in SODIUM CHLORIDE 0.9% 246 ML IV PRN ×2 (03:30→08:41)
[2018-09-17] MEDS ORDERED: ALBUTEROL SULFATE 2.5 MG/3 ML NPPB PRN (03:30)
[2018-09-17] MEDS ORDERED: SODIUM CHLORIDE 0.9%, 250ML IVBOLUS ONE (04:00)
[2018-09-17] MEDS ORDERED: MIDAZOLAM 1 MG/ML, 2ML IVPush ONE ×2 (04:00→06:00)
--- NOTE | 2018-09-17 04:09 | NUR ---
CENTRAL LINE PLACED BY ER MD. POST PLACEMENT PT BECOMING INCREASINGLY IRRITABLE AND NOT FOLLOWING DIRECTION. AWAITING CXR FOR PLACEMENT CONFIRMATION.
--- NOTE | 2018-09-17 04:18 | NUR ---
CXR DONE. MD WAYNE'Amilcar USE OF CENTRAL LINE FOR MEDS. LEVOPHED SWITCHED TO CENTRAL LINE AT THIS TIME.
[2018-09-17 04:25] LABS: MEAN CORPUSCULAR HEMOGLOBIN 26.3 pg (27.5-34.5); MEAN CORPUSCULAR HGB CONC 32.5 g/dL (33.2-36.2); MEAN CORPUSCULAR VOLUME 81.1 fL (81-97); MEAN PLATELET VOLUME 8.4 fL (7.4-10.4); PLATELET COUNT 228 x10^3/uL (130-400); RED BLOOD COUNT 4.27 x10^6/uL (4.38-5.82)
[2018-09-17] MEDS ORDERED: ENOXAPARIN 40 MG/0.4 ML ONE (04:25)
[2018-09-17] MEDS ORDERED: FAMOTIDINE 20 MG/2 ML ONE (04:26)
[2018-09-17] MEDS: FAMOTIDINE 20 MG/2 ML IV SCH ×2 (04:27→15:03)
[2018-09-17] MEDS: ENOXAPARIN 40 MG/0.4 ML SQ SCH (04:29)
[2018-09-17 04:30] LABS: ALBUMIN 2.3 g/dL (3.4-5.0); ANION GAP 5 mmol/L (5-15); CALCIUM 7.4 mg/dL (8.5-10.1); CHLORIDE 106 mmol/L (98-107)
[2018-09-17 04:33] LABS: ALANINE AMINOTRANSFERASE 19 U/L (12-78); ALKALINE PHOSPHATASE 89 U/L (45-117); BILIRUBIN,TOTAL 3.5 mg/dL (0.2-1.0); TOTAL PROTEIN 6.4 g/dL (6.4-8.2)
[2018-09-17] MEDS: SODIUM CHLORIDE 0.9% 1,000 ML IV SCH ×2 (04:35→12:26)
--- NOTE | 2018-09-17 04:48 | NUR ---
LAB AT BEDSIDE FOR ABG
[2018-09-17 05:00] LABS: MD YES
[2018-09-17 05:02] LABS: BAND#(MANUAL) 5.39 x10^3/uL; BANDS%(MANUAL) 17 % (0-7); LYMPH#(MANUAL) 2.85 x10^3/uL (1-3.4); LYMPHS% (MANUAL) 9 % (22-44); METAMYELOCYTES# (MANUAL) 1.27 x10^3/uL (0-0); METAMYELOCYTES% (MANUAL) 4 % (0-1); MONOS#(MANUAL) 1.27 x10^3/uL (0.3-2.7); MONOS% (MANUAL) 4 % (2-9); SEG#(MANUAL) 20.92 x10^3/uL (1.8-6.8); SEGS% (MANUAL) 66 % (42-75)
[2018-09-17 05:03] LABS: ANISOCYTOSIS 1+; PMNS WITH VACUOLES 1+; TOXIC GRAN 1+
[2018-09-17 05:04] LABS: <PLATELET ESTIMATE> ADEQUATE; <PLT MORPHOLOGY> NORMAL PLT MORPH
[2018-09-17] MEDS ORDERED: MAGNESIUM SULFATE 1 GM, THIAMINE 100 MG, FOLIC ACID 1 MG, MVI ADULT 10 ML in SODIUM CHL... IV ONE (05:30)
[2018-09-17] MEDS ORDERED: MAGNESIUM SULFATE 1 GM, FOLIC ACID 1 MG, MVI ADULT 10 ML in SODIUM CHLORIDE 0.9% 1,000 ML IV ONE (05:30)
[2018-09-17] MEDS ORDERED: SUCCINYLCHOLINE 20 MG/ML, 10ML IVPush ONE (05:30)
[2018-09-17] MEDS ORDERED: ETOMIDATE 20 MG/10 ML IVPush ONE (05:30)
[2018-09-17] MEDS: MIDAZOLAM HCL 25 MG in SODIUM CHLORIDE 0.9% 245 ML IV PRN ×3 (05:35→12:55)
--- NOTE | 2018-09-17 05:56 | NUR ---
LATE ENTRY FOR 529: PT AGITATION INCREASING, OXYGEN SATURATION DROPPING. PT WOULD NOT TOLERATE OXYMASK. PT CONTINUALLY TRYING TO CLIMB OUT OF BED. MD INFORMED. PT INTUBATED WITH 8.0 TUBE BY ER . OG PLACED, LANGLEY PLACED.
[2018-09-17] MEDS ORDERED: PROPOFOL 100 ML IV PRN ×2 (06:03→06:30)
[2018-09-17] MEDS: PIPERACILLIN/TAZO/PMX 4.5GM 100 ML IVPB SCH ×3 (06:20→22:08)
--- NOTE | 2018-09-17 07:00 | NUR ---
REPORT RECEIVED, CARE ASSUMED. PT CONT ON VENT A/C 20, TV 550 70% PEEP 5. OG TO SUCTION, IV'S INFUSING WITHOUT REDNESS/SWELLING.
--- NOTE | 2018-09-17 07:20 | NUR ---
U/S TECH AT BEDSIDE FOR U/S ABD
[2018-09-17] MEDS ORDERED: MAGNESIUM SULFATE PMX 4GM/100M 100 ML IV ONE (07:30)
--- NOTE | 2018-09-17 07:40 | NUR ---
DR WEBER AT BEDSIDE TO EVFABIÁN PT.
--- NOTE | 2018-09-17 08:00 | NUR ---
PT PLACED ON WAFFLE MATTRESS. REPOSITIONED TO LEFT SIDE. NOTED SMALL WHITE AREA ON COCCYX, SCROTUM EDEMATOUS, BRENDON FEET DRY AND FLAKY.
[2018-09-17] MEDS ORDERED: SUCCINYLCHOLINE 20 MG/ML, 10ML ONE (08:04)
[2018-09-17] MEDS ORDERED: ETOMIDATE 20 MG/10 ML ONE (08:04)
[2018-09-17] MEDS ORDERED: PROPOFOL 10 MG/ML, 100ML IV ONE (08:04)
[2018-09-17] MEDS ORDERED: NOREPINEPHRINE 4 MG in SODIUM CHLORIDE 0.9% 246 ML IV PRN (08:54)
[2018-09-17] MEDS ORDERED: LIDOCAINE-MPF 1%, 2ML ENDO PRN (09:00)
--- NOTE | 2018-09-17 10:35 | NUR ---
10:00 PT REPOSITIONED, CONT VARIABLE BP. CONT ON VENT, BREAK RN, TURNED OFF PROPOFOL, INCREASED LEVOPHED. 10:[address] WEBER, DISCUSSED PT HAS ONLY HAD UOP OF 100MLS. DARK AND CONCENTRATED, PT CURRENTLY RECEIVING IV BANANA BAG, NS AT 100, LEVOPHED AT MAX, PROPOFOL HAD BEEN STOPPED, VERSED DECREASED TO 6MG/HR. MD WOULD LIKE PROPOFOL TO CONTINUE, AFTER BANANA BAG PT TO RECIEVE 1L NS BOLUS, VASOPRESSIN GTT CAN BE ADDED IF NEEDED. WAITING FOR ROOM ASSIGNMENT.
--- NOTE | 2018-09-17 12:02 | NUR ---
DR ARCHULETA AT BEDSIDE TO EVAL PT. PT REPOSITIONED, ASSESSMENT COMPLETED. DECREASED LEVOPHED, BP 117/71
--- NOTE | 2018-09-17 12:21 | NUR ---
REPORT CALLED TO MARCELLUS BARNES. POC DISCUSSED.
[2018-09-17] MEDS ORDERED: NOREPINEPHRINE 8 MG in SODIUM CHLORIDE 0.9% 246 ML IV PRN (13:30)
[2018-09-18] MEDS: VANCOMYCIN 1,500 MG in SODIUM CHLORIDE 0.9% 250 ML IV SCH (00:22)
[2018-09-18] MEDS: SODIUM CHLORIDE 0.9% 1,000 ML IV SCH ×3 (02:39→22:04)
[2018-09-18] MEDS: ENOXAPARIN 40 MG/0.4 ML SQ SCH (03:32)
[2018-09-18] MEDS: FAMOTIDINE 20 MG/2 ML IV SCH ×2 (03:32→08:13)
[2018-09-18 04:00] VITALS: BP 112/66
[2018-09-18] MEDS: PROPOFOL 100 ML IV PRN ×3 (04:21→20:17)
[2018-09-18 04:40] LABS: MEAN CORPUSCULAR HEMOGLOBIN 25.5 pg (27.5-34.5); MEAN CORPUSCULAR HGB CONC 31.4 g/dL (33.2-36.2); MEAN CORPUSCULAR VOLUME 81.1 fL (81-97); MEAN PLATELET VOLUME 8.7 fL (7.4-10.4); PLATELET COUNT 225 x10^3/uL (130-400); RED BLOOD COUNT 3.89 x10^6/uL (4.38-5.82)
[2018-09-18 04:46] LABS: ANION GAP 9 mmol/L (5-15); CALCIUM 7.6 mg/dL (8.5-10.1); CHLORIDE 113 mmol/L (98-107); CREATININE 0.69 mg/dL (0.7-1.3)
[2018-09-18 05:13] LABS: BASOPHILS # (AUTO) 0.01 x10^3/uL (0-0.1); BASOPHILS % (AUTO) 0 % (0-1); EOSINOPHILS # (AUTO) 0.07 x10^3/uL (0-0.4); EOSINOPHILS % (AUTO) 0 % (1-7); LYMPHOCYTES # (AUTO) 1.28 x10^3/uL (1-3.4); LYMPHOCYTES % (AUTO) 7 % (22-44); MD SCAN; MONOCYTES # (AUTO) 0.61 x10^3/uL (0.2-0.8); MONOCYTES % (AUTO) 3 % (2-9); NEUTROPHILS # (AUTO) 16.74 x10^3/uL (1.8-6.8); NEUTROPHILS % (AUTO) 90 % (42-75)
[2018-09-18] MEDS: PIPERACILLIN/TAZO/PMX 4.5GM 100 ML IVPB SCH ×3 (06:05→22:44)
[2018-09-18] MEDS ORDERED: POTASSIUM CHLORIDE 10% 40 MEQ/30 ML UDC PO ONE (07:30)
[2018-09-18] MEDS: THIAMINE 100MG TABLET NG SCH ×2 (11:12→21:01)
[2018-09-18] MEDS: MAGNESIUM SULFATE 1 GM, FOLIC ACID 1 MG, MVI ADULT 10 ML in SODIUM CHLORIDE 0.9% 1,000 ML IV SCH (11:13)
[2018-09-18] MEDS: FERROUS SULFATE 325 MG TABLET PO SCH (17:31)
[2018-09-19] MEDS: VANCOMYCIN 1,500 MG in SODIUM CHLORIDE 0.9% 250 ML IV SCH (00:22)
[2018-09-19] MEDS: ENOXAPARIN 40 MG/0.4 ML SQ SCH (03:11)
[2018-09-19] MEDS: FAMOTIDINE 20 MG/2 ML IV SCH ×2 (03:11→09:10)
[2018-09-19] MEDS: PROPOFOL 100 ML IV PRN ×3 (03:35→18:00)
[2018-09-19 04:00] VITALS: BP 93/54
[2018-09-19 04:16] LABS: BASOPHILS # (AUTO) 0.01 x10^3/uL (0-0.1); BASOPHILS % (AUTO) 0 % (0-1); EOSINOPHILS # (AUTO) 0.28 x10^3/uL (0-0.4); EOSINOPHILS % (AUTO) 3 % (1-7); LYMPHOCYTES # (AUTO) 1.25 x10^3/uL (1-3.4); LYMPHOCYTES % (AUTO) 13 % (22-44); MD NO; MEAN CORPUSCULAR HEMOGLOBIN 26.2 pg (27.5-34.5); MEAN CORPUSCULAR HGB CONC 32.7 g/dL (33.2-36.2); MEAN PLATELET VOLUME 8.3 fL (7.4-10.4); MONOCYTES # (AUTO) 0.25 x10^3/uL (0.2-0.8); MONOCYTES % (AUTO) 3 % (2-9); NEUTROPHILS # (AUTO) 8.01 x10^3/uL (1.8-6.8); NEUTROPHILS % (AUTO) 82 % (42-75); PLATELET COUNT 177 x10^3/uL (130-400); RED BLOOD COUNT 3.49 x10^6/uL (4.38-5.82); RED CELL DISTRIBUTION WIDTH 18.1 % (9.4-14.8)
[2018-09-19] MEDS: PIPERACILLIN/TAZO/PMX 4.5GM 100 ML IVPB SCH ×3 (05:59→22:47)
[2018-09-19 07:08] LABS: ALANINE AMINOTRANSFERASE 23 U/L (12-78); ALBUMIN 1.7 g/dL (3.4-5.0); ANION GAP 7 mmol/L (5-15); CALCIUM 8.1 mg/dL (8.5-10.1); CREATININE 0.64 mg/dL (0.7-1.3)
[2018-09-19 07:10] LABS: ALKALINE PHOSPHATASE 146 U/L (45-117); BILIRUBIN,TOTAL 0.7 mg/dL (0.2-1.0); TOTAL PROTEIN 5.4 g/dL (6.4-8.2)
[2018-09-19 07:13] LABS: CHLORIDE 118 mmol/L (98-107)
[2018-09-19] MEDS: FERROUS SULFATE 325 MG TABLET PO SCH ×2 (08:00→17:00)
[2018-09-19] MEDS ORDERED: FENTANYL PF 100 MCG/2ML ONE (09:03)
[2018-09-19] MEDS: THIAMINE 100MG TABLET NG SCH ×2 (09:10→21:34)
--- NOTE | 2018-09-19 10:34 | NUR ---
TF GOAL: w/ propofol: PROMOTE @ 70ML/HR off propofol: PROMOTE @ 75ML/HR
[2018-09-19] MEDS: SODIUM CHLORIDE 0.9% 1,000 ML IV SCH ×2 (10:55→18:00)
[2018-09-19] MEDS: MAGNESIUM SULFATE 1 GM, FOLIC ACID 1 MG, MVI ADULT 10 ML in SODIUM CHLORIDE 0.9% 1,000 ML IV SCH (11:46)
[2018-09-19] MEDS ORDERED: SODIUM CHLORIDE 0.9%, 500ML IVBOLUS ONE (16:00)
[2018-09-20] MEDS: PROPOFOL 100 ML IV PRN ×4 (00:17→21:46)
[2018-09-20] MEDS: VANCOMYCIN 1,500 MG in SODIUM CHLORIDE 0.9% 250 ML IV SCH (00:25)
[2018-09-20] MEDS: ENOXAPARIN 40 MG/0.4 ML SQ SCH (03:34)
[2018-09-20] MEDS: FAMOTIDINE 20 MG/2 ML IV SCH ×2 (03:34→14:52)
[2018-09-20 04:00] VITALS: BP 105/63
[2018-09-20 04:36] LABS: MEAN CORPUSCULAR HEMOGLOBIN 25.9 pg (27.5-34.5); MEAN CORPUSCULAR HGB CONC 32.1 g/dL (33.2-36.2); MEAN CORPUSCULAR VOLUME 80.5 fL (81-97); MEAN PLATELET VOLUME 8.8 fL (7.4-10.4); PLATELET COUNT 176 x10^3/uL (130-400); RED BLOOD COUNT 3.67 x10^6/uL (4.38-5.82); RED CELL DISTRIBUTION WIDTH 18.7 % (9.4-14.8)
[2018-09-20 04:40] LABS: ALBUMIN 1.7 g/dL (3.4-5.0); ANION GAP 6 mmol/L (5-15); CALCIUM 7.4 mg/dL (8.5-10.1); CHLORIDE 119 mmol/L (98-107)
[2018-09-20 04:44] LABS: ALANINE AMINOTRANSFERASE 28 U/L (12-78); ALKALINE PHOSPHATASE 236 U/L (45-117); BILIRUBIN,TOTAL 0.7 mg/dL (0.2-1.0); CREATININE 0.66 mg/dL (0.7-1.3); TOTAL PROTEIN 5.4 g/dL (6.4-8.2); TRIGLYCERIDES 287 mg/dL (50-200)
[2018-09-20 05:04] LABS: MD YES
[2018-09-20 05:08] LABS: ANISOCYTOSIS 1+; BAND#(MANUAL) 0.17 x10^3/uL; BANDS%(MANUAL) 2 % (0-7); EOS#(MANUAL) 0.77 x10^3/uL (0.0-0.4); EOS% (MANUAL) 9 % (1-7); LYMPH#(MANUAL) 1.96 x10^3/uL (1-3.4); LYMPHS% (MANUAL) 23 % (22-44); MONOS#(MANUAL) 0.09 x10^3/uL (0.3-2.7); MONOS% (MANUAL) 1 % (2-9); SEG#(MANUAL) 5.53 x10^3/uL (1.8-6.8); SEGS% (MANUAL) 65 % (42-75)
[2018-09-20 05:09] LABS: <PLATELET ESTIMATE> ADEQUATE; <PLT MORPHOLOGY> NORMAL PLT MORPH
[2018-09-20] MEDS: PIPERACILLIN/TAZO/PMX 4.5GM 100 ML IVPB SCH ×3 (06:06→21:47)
[2018-09-20] MEDS: MAGNESIUM SULFATE 1 GM, FOLIC ACID 1 MG, MVI ADULT 10 ML in SODIUM CHLORIDE 0.9% 1,000 ML IV SCH (09:00)
[2018-09-20] MEDS: FERROUS SULFATE 325 MG TABLET PO SCH ×2 (09:07→17:21)
[2018-09-20] MEDS: THIAMINE 100MG TABLET NG SCH ×2 (09:07→21:46)
[2018-09-20] MEDS: SODIUM CHLORIDE 0.9% 1,000 ML IV SCH (14:53)
[2018-09-20] MEDS: ACETAMINOPHEN 325 MG TABLET PO PRN (21:46)
[2018-09-21] MEDS: SODIUM CHLORIDE 0.9% 1,000 ML IV SCH (03:21)
[2018-09-21] MEDS: FAMOTIDINE 20 MG/2 ML IV SCH ×2 (03:21→16:20)
[2018-09-21] MEDS: ENOXAPARIN 40 MG/0.4 ML SQ SCH (03:21)
[2018-09-21 04:00] VITALS: BP 103/57
[2018-09-21 04:41] LABS: MEAN CORPUSCULAR HGB CONC 32.4 g/dL (33.2-36.2); MEAN CORPUSCULAR VOLUME 80.2 fL (81-97); MEAN PLATELET VOLUME 8.9 fL (7.4-10.4); PLATELET COUNT 162 x10^3/uL (130-400); RED BLOOD COUNT 3.49 x10^6/uL (4.38-5.82); RED CELL DISTRIBUTION WIDTH 18.1 % (9.4-14.8)
[2018-09-21 04:58] LABS: ALANINE AMINOTRANSFERASE 28 U/L (12-78); ALBUMIN 1.5 g/dL (3.4-5.0); ANION GAP 7 mmol/L (5-15); CALCIUM 7.3 mg/dL (8.5-10.1); CHLORIDE 120 mmol/L (98-107); CREATININE 0.58 mg/dL (0.7-1.3)
[2018-09-21 05:01] LABS: ALKALINE PHOSPHATASE 190 U/L (45-117); BILIRUBIN,TOTAL 0.8 mg/dL (0.2-1.0); TOTAL PROTEIN 5.4 g/dL (6.4-8.2)
[2018-09-21] MEDS: PROPOFOL 100 ML IV PRN ×3 (05:29→20:28)
[2018-09-21 05:54] LABS: BASOPHILS # (AUTO) 0.01 x10^3/uL (0-0.1); BASOPHILS % (AUTO) 0 % (0-1); EOSINOPHILS # (AUTO) 0.59 x10^3/uL (0-0.4); EOSINOPHILS % (AUTO) 6 % (1-7); LYMPHOCYTES # (AUTO) 1.43 x10^3/uL (1-3.4); LYMPHOCYTES % (AUTO) 15 % (22-44); MD SCAN; MONOCYTES # (AUTO) 0.57 x10^3/uL (0.2-0.8); MONOCYTES % (AUTO) 6 % (2-9); NEUTROPHILS # (AUTO) 7.23 x10^3/uL (1.8-6.8); NEUTROPHILS % (AUTO) 74 % (42-75)
[2018-09-21] MEDS: PIPERACILLIN/TAZO/PMX 4.5GM 100 ML IVPB SCH (05:58)
[2018-09-21] MEDS: FERROUS SULFATE 325 MG TABLET PO SCH ×2 (07:57→16:20)
[2018-09-21] MEDS: THIAMINE 100MG TABLET NG SCH ×2 (07:57→20:31)
[2018-09-21] MEDS ORDERED: POTASSIUM CHLORIDE 10% 40 MEQ/30 ML UDC NG ONE (09:30)
[2018-09-21] MEDS: SODIUM CHLORIDE 0.45% 1,000 ML IV SCH (09:33)
[2018-09-21] MEDS ORDERED: MAGNESIUM SULFATE PMX 2GM/50ML 50 ML IV ONE (10:00)
[2018-09-21] MEDS ORDERED: POTASSIUM PHOSPHATE 44 MEQ in SODIUM CHLORIDE 0.9% 500 ML IV ONE (10:00)
[2018-09-21] MEDS: CEFTRIAXONE PMX 2GM/50ML 50 ML IVPB SCH (10:18)
[2018-09-22] MEDS: FAMOTIDINE 20 MG/2 ML IV SCH ×2 (02:45→15:42)
[2018-09-22] MEDS: ENOXAPARIN 40 MG/0.4 ML SQ SCH (02:46)
[2018-09-22] MEDS: PROPOFOL 100 ML IV PRN ×3 (03:01→20:15)
[2018-09-22 04:15] VITALS: BP 108/52
[2018-09-22] MEDS: SODIUM CHLORIDE 0.45% 1,000 ML IV SCH ×2 (05:52→05:53)
[2018-09-22 07:36] LABS: ALBUMIN 1.7 g/dL (3.4-5.0); ANION GAP 9 mmol/L (5-15); CALCIUM 7.3 mg/dL (8.5-10.1); CHLORIDE 119 mmol/L (98-107); CREATININE 0.55 mg/dL (0.7-1.3)
[2018-09-22 07:48] LABS: BASOPHILS # (AUTO) 0.04 x10^3/uL (0-0.1); BASOPHILS % (AUTO) 0 % (0-1); EOSINOPHILS # (AUTO) 0.49 x10^3/uL (0-0.4); EOSINOPHILS % (AUTO) 5 % (1-7); LYMPHOCYTES # (AUTO) 2.18 x10^3/uL (1-3.4); LYMPHOCYTES % (AUTO) 20 % (22-44); MD NO; MEAN CORPUSCULAR HEMOGLOBIN 25.6 pg (27.5-34.5); MEAN CORPUSCULAR HGB CONC 31.9 g/dL (33.2-36.2); MEAN CORPUSCULAR VOLUME 80.4 fL (81-97); MEAN PLATELET VOLUME 9.6 fL (7.4-10.4); MONOCYTES # (AUTO) 1.16 x10^3/uL (0.2-0.8); MONOCYTES % (AUTO) 11 % (2-9); NEUTROPHILS # (AUTO) 6.88 x10^3/uL (1.8-6.8); NEUTROPHILS % (AUTO) 64 % (42-75); PLATELET COUNT 207 x10^3/uL (130-400); RED BLOOD COUNT 3.61 x10^6/uL (4.38-5.82); RED CELL DISTRIBUTION WIDTH 18.8 % (9.4-14.8)
[2018-09-22] MEDS: FERROUS SULFATE 325 MG TABLET PO SCH ×2 (08:33→15:42)
[2018-09-22] MEDS: ACETAMINOPHEN 325 MG TABLET PO PRN (08:34)
[2018-09-22] MEDS: THIAMINE 100MG TABLET NG SCH ×2 (08:34→20:23)
[2018-09-22] MEDS: DOXYCYCLINE 100 MG in DEXTROSE 5% 250 ML IV SCH ×2 (10:10→20:23)
[2018-09-22] MEDS: CEFTRIAXONE PMX 2GM/50ML 50 ML IVPB SCH (10:10)
[2018-09-22] MEDS: FUROSEMIDE 20 MG/2 ML IV SCH (15:43)
[2018-09-22] MEDS: ALBUTEROL/IPRATROPIUM 2.5MG/0.5MG, 3 ML INLINE SCH (23:13)
[2018-09-23] MEDS: morphine SULFATE 10 MG/ML, 1ML IVPush PRN (01:45)
[2018-09-23] MEDS: PROPOFOL 100 ML IV PRN ×4 (01:45→21:05)
[2018-09-23] MEDS: ENOXAPARIN 40 MG/0.4 ML SQ SCH (02:21)
[2018-09-23] MEDS: FAMOTIDINE 20 MG/2 ML IV SCH ×2 (02:21→14:35)
[2018-09-23] MEDS: ALBUTEROL/IPRATROPIUM 2.5MG/0.5MG, 3 ML INLINE SCH ×6 (02:32→22:08)
[2018-09-23 04:00] VITALS: BP 140/60
[2018-09-23] MEDS: SODIUM BICARBONATE 4.0%, 5ML NPPB SCH ×5 (07:00→22:08)
[2018-09-23] MEDS: THIAMINE 100MG TABLET NG SCH ×2 (08:26→20:59)
[2018-09-23] MEDS: ALBUMIN HUMAN 25% 100 ML IV SCH ×2 (08:27→20:18)
[2018-09-23] MEDS: DOXYCYCLINE 100 MG in DEXTROSE 5% 250 ML IV SCH ×2 (09:02→20:59)
[2018-09-23] MEDS: FUROSEMIDE 20 MG/2 ML IV SCH ×2 (09:02→20:59)
[2018-09-23] MEDS: FERROUS SULFATE 220 MG/5 ML ORAL SOL PO SCH ×2 (10:07→16:57)
[2018-09-23] MEDS: CEFTRIAXONE PMX 2GM/50ML 50 ML IVPB SCH (12:03)
[2018-09-24] MEDS: ALBUTEROL/IPRATROPIUM 2.5MG/0.5MG, 3 ML INLINE SCH ×6 (02:06→22:47)
[2018-09-24] MEDS: SODIUM BICARBONATE 4.0%, 5ML NPPB SCH ×6 (02:06→22:47)
[2018-09-24] MEDS: PROPOFOL 100 ML IV PRN ×3 (02:15→15:38)
[2018-09-24] MEDS: ENOXAPARIN 40 MG/0.4 ML SQ SCH (02:55)
[2018-09-24] MEDS: FAMOTIDINE 20 MG/2 ML IV SCH ×2 (02:55→15:34)
[2018-09-24 04:13] VITALS: BP 141/72
[2018-09-24] MEDS ORDERED: MAGNESIUM SULFATE PMX 2GM/50ML 50 ML IV ONE (07:30)
[2018-09-24] MEDS: ALBUMIN HUMAN 25% 100 ML IV SCH ×2 (08:02→20:13)
[2018-09-24] MEDS: CEFTRIAXONE PMX 2GM/50ML 50 ML IVPB SCH (09:54)
[2018-09-24] MEDS: FERROUS SULFATE 220 MG/5 ML ORAL SOL PO SCH ×2 (09:54→17:34)
[2018-09-24] MEDS: FUROSEMIDE 20 MG/2 ML IV SCH ×2 (09:55→17:34)
[2018-09-24] MEDS: THIAMINE 100MG TABLET NG SCH ×2 (09:55→21:59)
[2018-09-24] MEDS: DOXYCYCLINE 50 MG/5 ML ORAL SUSP PO SCH ×2 (10:15→21:59)
[2018-09-24] MEDS: DEXMEDETOMIDINE 1,000 MCG in SODIUM CHLORIDE 0.9% 240 ML IV PRN (12:28)
[2018-09-25] MEDS: DEXMEDETOMIDINE 1,000 MCG in SODIUM CHLORIDE 0.9% 240 ML IV PRN (01:20)
[2018-09-25] MEDS: ENOXAPARIN 40 MG/0.4 ML SQ SCH (03:19)
[2018-09-25] MEDS: FAMOTIDINE 20 MG/2 ML IV SCH ×2 (03:19→16:49)
[2018-09-25 04:00] VITALS: BP 127/57
[2018-09-25] MEDS: ALBUTEROL/IPRATROPIUM 2.5MG/0.5MG, 3 ML INLINE SCH ×2 (04:00→06:38)
[2018-09-25] MEDS: SODIUM BICARBONATE 4.0%, 5ML NPPB SCH ×2 (04:00→06:38)
[2018-09-25 08:06] LABS: BASOPHILS # (AUTO) 0.05 x10^3/uL (0-0.1); BASOPHILS % (AUTO) 1 % (0-1); EOSINOPHILS # (AUTO) 0.47 x10^3/uL (0-0.4); EOSINOPHILS % (AUTO) 5 % (1-7); LYMPHOCYTES % (AUTO) 14 % (22-44); MD NO; MEAN CORPUSCULAR HEMOGLOBIN 25.3 pg (27.5-34.5); MEAN CORPUSCULAR HGB CONC 31.8 g/dL (33.2-36.2); MEAN CORPUSCULAR VOLUME 79.4 fL (81-97); MONOCYTES # (AUTO) 0.63 x10^3/uL (0.2-0.8); MONOCYTES % (AUTO) 6 % (2-9); NEUTROPHILS # (AUTO) 7.48 x10^3/uL (1.8-6.8); NEUTROPHILS % (AUTO) 75 % (42-75); PLATELET COUNT 300 x10^3/uL (130-400); RED BLOOD COUNT 3.54 x10^6/uL (4.38-5.82); RED CELL DISTRIBUTION WIDTH 18.3 % (9.4-14.8)
[2018-09-25 08:22] LABS: ALANINE AMINOTRANSFERASE 31 U/L (12-78); ALBUMIN 2.3 g/dL (3.4-5.0); ANION GAP 5 mmol/L (5-15); CALCIUM 7.8 mg/dL (8.5-10.1); CHLORIDE 107 mmol/L (98-107)
[2018-09-25 08:24] LABS: ALKALINE PHOSPHATASE 255 U/L (45-117); BILIRUBIN,TOTAL 0.6 mg/dL (0.2-1.0); CREATININE 0.52 mg/dL (0.7-1.3); TOTAL PROTEIN 6.3 g/dL (6.4-8.2)
[2018-09-25] MEDS: FUROSEMIDE 20 MG/2 ML IV SCH ×2 (08:29→16:49)
[2018-09-25] MEDS: THIAMINE 100MG TABLET NG SCH ×2 (08:29→20:35)
[2018-09-25] MEDS: FERROUS SULFATE 220 MG/5 ML ORAL SOL PO SCH ×2 (08:29→16:49)
[2018-09-25] MEDS: ALBUMIN HUMAN 25% 100 ML IV SCH ×2 (08:30→20:41)
[2018-09-25] MEDS ORDERED: DOXYCYCLINE 50 MG/5 ML ORAL SUSP PO SCH (09:00)
[2018-09-25] MEDS: CEFTRIAXONE PMX 2GM/50ML 50 ML IVPB SCH (11:00)
[2018-09-25] MEDS: ONDANSETRON 2MG/ML, 2ML IVPB PRN (13:22)
--- NOTE | 2018-09-25 13:54 | NUR ---
REC: NPO with NGT for now except ice chips with supervision Addendum: 09/25/18 at 1355 by Genevieve PYLE Amended: Links added.
[2018-09-25] MEDS ORDERED: LABETALOL 5MG/ML, 20ML IVPush PRN (14:00)
[2018-09-25] MEDS: morphine SULFATE 10 MG/ML, 1ML IVPush PRN ×2 (15:29→20:41)
[2018-09-25] MEDS ORDERED: PROMETHAZINE 25 MG/ML, 1ML ONE (15:49)
[2018-09-25] MEDS ORDERED: ENALAPRILAT 1.25 MG/ML, 2ML ONE (16:00)
[2018-09-25] MEDS ORDERED: PROMETHAZINE 25 MG/ML, 1ML IM PRN (16:00)
[2018-09-25] MEDS: ENALAPRILAT 1.25 MG/ML, 2ML IV PRN (16:05)
[2018-09-25] MEDS ORDERED: PIPERACILLIN/TAZO/PMX 3.375GM 50 ML IV SCH (20:00)
[2018-09-25] MEDS: DOXYCYCLINE 50 MG/5 ML ORAL SUSP PO SCH (20:35)
[2018-09-26] MEDS: ENALAPRILAT 1.25 MG/ML, 2ML IV PRN (00:11)
[2018-09-26] MEDS ORDERED: LABETALOL 5 MG/ML SYRINGE IVPush PRN (00:30)
[2018-09-26 03:00] VITALS: BP 160/78
[2018-09-26] MEDS: FAMOTIDINE 20 MG/2 ML IV SCH (03:25)
[2018-09-26] MEDS: ENOXAPARIN 40 MG/0.4 ML SQ SCH (03:25)
[2018-09-26] MEDS: ALBUMIN HUMAN 25% 100 ML IV SCH (07:39)
[2018-09-26] MEDS: FUROSEMIDE 20 MG/2 ML IV SCH ×2 (07:54→17:38)
[2018-09-26] MEDS: THIAMINE 100MG TABLET PO SCH (10:30)
[2018-09-26] MEDS: FERROUS SULFATE 220 MG/5 ML ORAL SOL PO SCH ×2 (10:49→19:45)
[2018-09-26] MEDS: DOXYCYCLINE 50 MG/5 ML ORAL SUSP PO SCH ×2 (10:50→19:45)
[2018-09-26] MEDS: CEFTRIAXONE PMX 2GM/50ML 50 ML IVPB SCH (10:50)
[2018-09-26] MEDS: THIAMINE 100MG TABLET NG SCH ×2 (10:50→19:45)
--- NOTE | 2018-09-26 11:29 | NUR ---
AQUA AMMONIA OPERATOR recommend: PUREE/ THINS -Up in chair for all meals -No straws -Meds floated -Alternate solids/ liquids [place] sheet posted Addendum: 09/26/18 at [address] Amended: Links added.
[2018-09-26 19:13] VITALS: BP 129/71
[2018-09-26] MEDS: QUETIAPINE 25MG TABLET PO SCH (19:44)
[2018-09-26] MEDS: FAMOTIDINE 20 MG TABLET PO SCH (19:45)
[2018-09-26] MEDS: ACETAMINOPHEN 325 MG TABLET PO PRN (19:47)
[2018-09-27 02:30] VITALS: BP 153/77
[2018-09-27 05:48] LABS: BASOPHILS # (AUTO) 0.04 x10^3/uL (0-0.1); BASOPHILS % (AUTO) 0 % (0-1); EOSINOPHILS # (AUTO) 0.72 x10^3/uL (0-0.4); EOSINOPHILS % (AUTO) 7 % (1-7); LYMPHOCYTES # (AUTO) 1.27 x10^3/uL (1-3.4); LYMPHOCYTES % (AUTO) 12 % (22-44); MD NO; MEAN CORPUSCULAR HEMOGLOBIN 26.3 pg (27.5-34.5); MEAN CORPUSCULAR VOLUME 79.8 fL (81-97); MONOCYTES # (AUTO) 0.86 x10^3/uL (0.2-0.8); MONOCYTES % (AUTO) 8 % (2-9); NEUTROPHILS # (AUTO) 7.71 x10^3/uL (1.8-6.8); NEUTROPHILS % (AUTO) 73 % (42-75); PLATELET COUNT 453 x10^3/uL (130-400); RED BLOOD COUNT 3.62 x10^6/uL (4.38-5.82); RED CELL DISTRIBUTION WIDTH 17.2 % (9.4-14.8)
[2018-09-27 06:03] LABS: CHLORIDE 103 mmol/L (98-107)
[2018-09-27 06:09] LABS: ALANINE AMINOTRANSFERASE 24 U/L (12-78); ALBUMIN 3.2 g/dL (3.4-5.0); ALKALINE PHOSPHATASE 222 U/L (45-117); ANION GAP 8 mmol/L (5-15); CALCIUM 8.8 mg/dL (8.5-10.1); CREATININE 0.48 mg/dL (0.7-1.3); TOTAL PROTEIN 7.2 g/dL (6.4-8.2)
[2018-09-27 08:03] VITALS: BP 134/84
[2018-09-27] MEDS: THIAMINE 100MG TABLET NG SCH (08:42)
[2018-09-27] MEDS: ENOXAPARIN 40 MG/0.4 ML SQ SCH (08:42)
[2018-09-27] MEDS: FERROUS SULFATE 220 MG/5 ML ORAL SOL PO SCH ×2 (08:43→16:47)
[2018-09-27] MEDS: FUROSEMIDE 20 MG/2 ML IV SCH ×2 (08:43→16:48)
[2018-09-27] MEDS: DOXYCYCLINE 50 MG/5 ML ORAL SUSP PO SCH ×2 (08:44→19:59)
[2018-09-27] MEDS: FAMOTIDINE 20 MG TABLET PO SCH ×2 (08:44→19:59)
[2018-09-27] MEDS: THIAMINE 100MG TABLET PO SCH (09:00)
[2018-09-27] MEDS: CEFTRIAXONE PMX 2GM/50ML 50 ML IVPB SCH (12:10)
[2018-09-27 12:25] VITALS: BP 136/74
[2018-09-27] MEDS ORDERED: POTASSIUM CHLORIDE 20 MEQ PACKET PO ONE (15:30)
[2018-09-27 19:13] VITALS: BP 144/80
[2018-09-27] MEDS: QUETIAPINE 25MG TABLET PO SCH (19:59)
[2018-09-28 00:26] VITALS: BP 124/72
[2018-09-28 05:23] VITALS: BP 122/70
[2018-09-28 05:31] LABS: ANION GAP 5 mmol/L (5-15); CALCIUM 9.1 mg/dL (8.5-10.1); CHLORIDE 103 mmol/L (98-107)
[2018-09-28 05:34] LABS: BASOPHILS # (AUTO) 0.06 x10^3/uL (0-0.1); BASOPHILS % (AUTO) 1 % (0-1); EOSINOPHILS # (AUTO) 0.66 x10^3/uL (0-0.4); EOSINOPHILS % (AUTO) 8 % (1-7); LYMPHOCYTES # (AUTO) 1.45 x10^3/uL (1-3.4); LYMPHOCYTES % (AUTO) 17 % (22-44); MD NO; MEAN CORPUSCULAR HEMOGLOBIN 26.4 pg (27.5-34.5); MEAN PLATELET VOLUME 8.1 fL (7.4-10.4); MONOCYTES # (AUTO) 0.92 x10^3/uL (0.2-0.8); MONOCYTES % (AUTO) 11 % (2-9); NEUTROPHILS # (AUTO) 5.41 x10^3/uL (1.8-6.8); NEUTROPHILS % (AUTO) 64 % (42-75); PLATELET COUNT 536 x10^3/uL (130-400); RED BLOOD COUNT 3.68 x10^6/uL (4.38-5.82); RED CELL DISTRIBUTION WIDTH 17.5 % (9.4-14.8)
[2018-09-28 05:35] LABS: CREATININE 0.55 mg/dL (0.7-1.3)
[2018-09-28 08:00] VITALS: BP 150/74
[2018-09-28] MEDS: FAMOTIDINE 20 MG TABLET PO SCH ×2 (08:44→20:40)
[2018-09-28] MEDS: THIAMINE 100MG TABLET PO SCH (08:44)
[2018-09-28] MEDS: ENOXAPARIN 40 MG/0.4 ML SQ SCH (08:45)
[2018-09-28] MEDS: FUROSEMIDE 20 MG/2 ML IV SCH (08:45)
[2018-09-28] MEDS: FERROUS SULFATE 220 MG/5 ML ORAL SOL PO SCH ×2 (08:47→17:40)
[2018-09-28] MEDS: DOXYCYCLINE 50 MG/5 ML ORAL SUSP PO SCH (08:48)
[2018-09-28] MEDS: CEFTRIAXONE PMX 2GM/50ML 50 ML IVPB SCH (11:20)
[2018-09-28 12:54] VITALS: BP 149/82
--- NOTE | 2018-09-28 12:59 | NUR ---
CARDIOPULMONARY TECHNICIAN Recommend: REGULAR/THINS -No straws -Up in chair for all meals -Alternate solids/liquids -Meds as tolerated Addendum: 09/28/18 at [address] Amended: Links added.
[2018-09-28] MEDS: LIDODERM 5% PATCH TD SCH (14:31)
[2018-09-28] MEDS ORDERED: FURO10VI37 IV (17:02)
[2018-09-28] MEDS ORDERED: LIDO700A20 TD (17:02)
[2018-09-28] MEDS ORDERED: THIA100T67 PO (17:02)
[2018-09-28] MEDS ORDERED: ENOX40SY4 SQ (17:02)
[2018-09-28] MEDS ORDERED: FURO10SO PO (17:07)
[2018-09-28] MEDS ORDERED: POTASSIUM CHLORIDE 20 MEQ TAB.ER.PRT PO ONE (18:00)
[2018-09-28 19:24] VITALS: BP 147/76
[2018-09-28] MEDS: QUETIAPINE 25MG TABLET PO SCH (20:40)
[2018-09-29] MEDS: LIDODERM REMOVE PATCH NOTE XX SCH (01:30)
[2018-09-29 02:59] VITALS: BP 138/74
[2018-09-29 05:02] LABS: BASOPHILS % (AUTO) 1 % (0-1); EOSINOPHILS # (AUTO) 0.57 x10^3/uL (0-0.4); EOSINOPHILS % (AUTO) 5 % (1-7); LYMPHOCYTES # (AUTO) 2.22 x10^3/uL (1-3.4); LYMPHOCYTES % (AUTO) 20 % (22-44); MD NO; MEAN CORPUSCULAR HEMOGLOBIN 25.1 pg (27.5-34.5); MEAN CORPUSCULAR HGB CONC 31.7 g/dL (33.2-36.2); MEAN CORPUSCULAR VOLUME 79.2 fL (81-97); MEAN PLATELET VOLUME 8.1 fL (7.4-10.4); MONOCYTES # (AUTO) 1.09 x10^3/uL (0.2-0.8); MONOCYTES % (AUTO) 10 % (2-9); NEUTROPHILS # (AUTO) 7.39 x10^3/uL (1.8-6.8); NEUTROPHILS % (AUTO) 65 % (42-75); PLATELET COUNT 546 x10^3/uL (130-400); RED BLOOD COUNT 3.94 x10^6/uL (4.38-5.82); RED CELL DISTRIBUTION WIDTH 16.6 % (9.4-14.8)
[2018-09-29 05:24] LABS: ALBUMIN 3.4 g/dL (3.4-5.0); ANION GAP 8 mmol/L (5-15); CALCIUM 8.9 mg/dL (8.5-10.1); CHLORIDE 106 mmol/L (98-107)
[2018-09-29 05:52] LABS: ALANINE AMINOTRANSFERASE 24 U/L (12-78); ALKALINE PHOSPHATASE 206 U/L (45-117); BILIRUBIN,TOTAL 0.8 mg/dL (0.2-1.0); TOTAL PROTEIN 7.4 g/dL (6.4-8.2)
[2018-09-29 08:00] VITALS: BP 144/79
[2018-09-29] MEDS: FUROSEMIDE 10 MG/ML ORAL SOL PO SCH (09:00)
[2018-09-29] MEDS ORDERED: FUROSEMIDE 20 MG TABLET ONE (09:32)
[2018-09-29] MEDS: FERROUS SULFATE 220 MG/5 ML ORAL SOL PO SCH ×2 (09:44→17:25)
[2018-09-29] MEDS: THIAMINE 100MG TABLET PO SCH (09:44)
[2018-09-29] MEDS: FAMOTIDINE 20 MG TABLET PO SCH ×2 (09:44→19:52)
[2018-09-29] MEDS: ENOXAPARIN 40 MG/0.4 ML SQ SCH (09:45)
[2018-09-29 12:05] VITALS: BP 146/84
[2018-09-29] MEDS: LIDODERM 5% PATCH TD SCH (13:52)
[2018-09-29 19:49] VITALS: BP 138/69
[2018-09-29] MEDS: QUETIAPINE 25MG TABLET PO SCH (19:52)
[2018-09-30] MEDS: LIDODERM REMOVE PATCH NOTE XX SCH (01:30)
[2018-09-30 04:50] VITALS: BP 144/82
[2018-09-30] MEDS: ACETAMINOPHEN 325 MG TABLET PO PRN (05:52)
[2018-09-30 07:52] VITALS: BP 150/77
[2018-09-30] MEDS ORDERED: FUROSEMIDE 20 MG TABLET ONE (08:19)
[2018-09-30] MEDS: THIAMINE 100MG TABLET PO SCH (08:21)
[2018-09-30] MEDS: FAMOTIDINE 20 MG TABLET PO SCH ×2 (08:21→20:10)
[2018-09-30] MEDS: FERROUS SULFATE 220 MG/5 ML ORAL SOL PO SCH ×2 (08:22→17:39)
[2018-09-30] MEDS: FUROSEMIDE 10 MG/ML ORAL SOL PO SCH (08:22)
[2018-09-30] MEDS: ENOXAPARIN 40 MG/0.4 ML SQ SCH (08:22)
[2018-09-30] MEDS: LIDODERM 5% PATCH TD SCH (13:30)
[2018-09-30] MEDS: ERGOCALCIFEROL 50,000 UNIT CAPSULE PO SCH (13:32)
[2018-09-30 13:38] VITALS: BP 137/84
[2018-09-30 20:04] VITALS: BP 130/69
[2018-09-30] MEDS: QUETIAPINE 25MG TABLET PO SCH (20:10)
[2018-10-01 01:10] VITALS: BP 134/72
[2018-10-01] MEDS: LIDODERM REMOVE PATCH NOTE XX SCH (01:30)
[2018-10-01 08:00] VITALS: BP 128/66
[2018-10-01] MEDS: FUROSEMIDE 10 MG/ML ORAL SOL PO SCH (08:07)
[2018-10-01] MEDS: FERROUS SULFATE 220 MG/5 ML ORAL SOL PO SCH ×2 (08:07→17:00)
[2018-10-01] MEDS: THIAMINE 100MG TABLET PO SCH (08:08)
[2018-10-01] MEDS: FAMOTIDINE 20 MG TABLET PO SCH ×2 (08:08→20:37)
[2018-10-01] MEDS: ENOXAPARIN 40 MG/0.4 ML SQ SCH (08:08)
[2018-10-01] MEDS: LIDODERM 5% PATCH TD SCH (13:30)
[2018-10-01 13:33] VITALS: BP 130/73
[2018-10-01 19:30] VITALS: BP 124/79
[2018-10-01] MEDS: QUETIAPINE 25MG TABLET PO SCH (20:37)
[2018-10-01] MEDS: ACETAMINOPHEN 325 MG TABLET PO PRN (20:40)
[2018-10-02] MEDS: LIDODERM REMOVE PATCH NOTE XX SCH (01:30)
[2018-10-02 01:47] VITALS: BP 132/73
[2018-10-02 06:59] VITALS: BP 136/66
[2018-10-02] MEDS: ENOXAPARIN 40 MG/0.4 ML SQ SCH (08:53)
[2018-10-02] MEDS: FERROUS SULFATE 220 MG/5 ML ORAL SOL PO SCH ×2 (08:53→16:14)
[2018-10-02] MEDS: FUROSEMIDE 10 MG/ML ORAL SOL PO SCH (08:54)
[2018-10-02] MEDS: FAMOTIDINE 20 MG TABLET PO SCH ×2 (08:54→20:04)
[2018-10-02] MEDS: THIAMINE 100MG TABLET PO SCH (08:54)
[2018-10-02 12:20] VITALS: BP 134/68
[2018-10-02] MEDS: LIDODERM 5% PATCH TD SCH (13:30)
[2018-10-02 19:19] VITALS: BP 135/88
[2018-10-02] MEDS: QUETIAPINE 25MG TABLET PO SCH (20:04)
[2018-10-02] MEDS: ACETAMINOPHEN 325 MG TABLET PO PRN (20:04)
[2018-10-03 01:16] VITALS: BP 127/72
[2018-10-03] MEDS: LIDODERM REMOVE PATCH NOTE XX SCH (01:30)
[2018-10-03 05:42] LABS: CREATININE 0.72 mg/dL (0.7-1.3)
[2018-10-03 06:46] VITALS: BP 122/72
[2018-10-03] MEDS: FAMOTIDINE 20 MG TABLET PO SCH ×2 (09:24→19:48)
[2018-10-03] MEDS: FUROSEMIDE 10 MG/ML ORAL SOL PO SCH (09:24)
[2018-10-03] MEDS: FERROUS SULFATE 220 MG/5 ML ORAL SOL PO SCH ×2 (09:24→17:00)
[2018-10-03] MEDS: THIAMINE 100MG TABLET PO SCH (09:24)
[2018-10-03] MEDS: ENOXAPARIN 40 MG/0.4 ML SQ SCH (09:25)
[2018-10-03 12:08] VITALS: BP 126/73
[2018-10-03] MEDS: LIDODERM 5% PATCH TD SCH (13:30)
[2018-10-03 19:33] VITALS: BP 133/78
[2018-10-03] MEDS: QUETIAPINE 25MG TABLET PO SCH (19:48)
[2018-10-04] MEDS: LIDODERM REMOVE PATCH NOTE XX SCH (01:30)
[2018-10-04 01:38] VITALS: BP 126/72
[2018-10-04 06:03] VITALS: BP 138/80
[2018-10-04] MEDS: FAMOTIDINE 20 MG TABLET PO SCH ×2 (09:00→20:05)
[2018-10-04] MEDS: THIAMINE 100MG TABLET PO SCH (09:00)
[2018-10-04] MEDS: ENOXAPARIN 40 MG/0.4 ML SQ SCH (09:25)
[2018-10-04] MEDS: FERROUS SULFATE 220 MG/5 ML ORAL SOL PO SCH ×2 (09:25→16:19)
[2018-10-04] MEDS: FUROSEMIDE 10 MG/ML ORAL SOL PO SCH (09:25)
[2018-10-04 13:33] VITALS: BP 126/75
[2018-10-04] MEDS: LIDODERM 5% PATCH TD SCH (16:18)
[2018-10-04 18:56] VITALS: BP 138/81
[2018-10-04] MEDS: QUETIAPINE 25MG TABLET PO SCH (20:05)
[2018-10-04] MEDS: ACETAMINOPHEN 325 MG TABLET PO PRN (20:10)
[2018-10-05] MEDS: LIDODERM REMOVE PATCH NOTE XX SCH (01:30)
[2018-10-05 02:00] VITALS: BP 134/79
[2018-10-05] MEDS: ACETAMINOPHEN 325 MG TABLET PO PRN ×2 (06:21→16:22)
[2018-10-05 07:03] VITALS: BP 130/78
[2018-10-05] MEDS: FERROUS SULFATE 220 MG/5 ML ORAL SOL PO SCH ×2 (08:55→16:22)
[2018-10-05] MEDS: FUROSEMIDE 10 MG/ML ORAL SOL PO SCH (08:56)
[2018-10-05] MEDS: ENOXAPARIN 40 MG/0.4 ML SQ SCH (08:56)
[2018-10-05] MEDS: THIAMINE 100MG TABLET PO SCH (08:56)
[2018-10-05] MEDS: FAMOTIDINE 20 MG TABLET PO SCH ×2 (08:56→20:06)
[2018-10-05 13:30] VITALS: BP 121/75
[2018-10-05] MEDS: LIDODERM 5% PATCH TD SCH (14:32)
[2018-10-05 19:20] VITALS: BP 137/75
[2018-10-05] MEDS: QUETIAPINE 25MG TABLET PO SCH (20:06)
[2018-10-06] MEDS: LIDODERM REMOVE PATCH NOTE XX SCH (01:30)
[2018-10-06 02:08] VITALS: BP 140/74
[2018-10-06] MEDS: ACETAMINOPHEN 325 MG TABLET PO PRN ×2 (03:26→20:32)
[2018-10-06 06:31] VITALS: BP 131/82
[2018-10-06] MEDS: FERROUS SULFATE 220 MG/5 ML ORAL SOL PO SCH ×2 (08:00→17:00)
[2018-10-06] MEDS: FUROSEMIDE 10 MG/ML ORAL SOL PO SCH (08:56)
[2018-10-06] MEDS: LIDODERM 5% PATCH TD SCH (08:56)
[2018-10-06] MEDS: THIAMINE 100MG TABLET PO SCH (08:56)
[2018-10-06] MEDS: ENOXAPARIN 40 MG/0.4 ML SQ SCH (08:56)
[2018-10-06] MEDS: FAMOTIDINE 20 MG TABLET PO SCH ×2 (08:56→20:28)
[2018-10-06 14:00] VITALS: BP 137/75
[2018-10-06 18:25] VITALS: BP 126/71
[2018-10-06] MEDS: QUETIAPINE 25MG TABLET PO SCH (20:28)
[2018-10-07 00:24] VITALS: BP 132/79
[2018-10-07] MEDS: LIDODERM REMOVE PATCH NOTE XX SCH (01:49)
[2018-10-07 07:10] VITALS: BP 119/76
[2018-10-07] MEDS: FERROUS SULFATE 220 MG/5 ML ORAL SOL PO SCH ×2 (08:00→21:51)
[2018-10-07] MEDS: FUROSEMIDE 10 MG/ML ORAL SOL PO SCH (09:00)
[2018-10-07] MEDS ORDERED: FUROSEMIDE 20 MG TABLET ONE (09:30)
[2018-10-07] MEDS: ENOXAPARIN 40 MG/0.4 ML SQ SCH (09:32)
[2018-10-07] MEDS: THIAMINE 100MG TABLET PO SCH (09:32)
[2018-10-07] MEDS: FAMOTIDINE 20 MG TABLET PO SCH ×2 (09:32→21:50)
[2018-10-07] MEDS: LIDODERM 5% PATCH TD SCH (12:26)
[2018-10-07 12:45] VITALS: BP 136/82
[2018-10-07] MEDS: ERGOCALCIFEROL 50,000 UNIT CAPSULE PO SCH (13:31)
[2018-10-07 18:38] VITALS: BP 135/80
[2018-10-07] MEDS: QUETIAPINE 25MG TABLET PO SCH (21:50)
[2018-10-08 01:22] VITALS: BP 129/78
[2018-10-08] MEDS: LIDODERM REMOVE PATCH NOTE XX SCH (01:30)
[2018-10-08 07:10] VITALS: BP 130/83
[2018-10-08] MEDS: FERROUS SULFATE 220 MG/5 ML ORAL SOL PO SCH ×2 (08:00→17:00)
[2018-10-08] MEDS: THIAMINE 100MG TABLET PO SCH (09:59)
[2018-10-08] MEDS: FUROSEMIDE 10 MG/ML ORAL SOL PO SCH (09:59)
[2018-10-08] MEDS: ENOXAPARIN 40 MG/0.4 ML SQ SCH (09:59)
[2018-10-08] MEDS: FAMOTIDINE 20 MG TABLET PO SCH ×2 (09:59→19:38)
[2018-10-08] MEDS: LIDODERM 5% PATCH TD SCH (13:30)
[2018-10-08 14:00] VITALS: BP 135/80
[2018-10-08 18:47] VITALS: BP 125/78
[2018-10-08] MEDS: QUETIAPINE 25MG TABLET PO SCH (19:38)
[2018-10-09 00:21] VITALS: BP 129/71
[2018-10-09] MEDS: LIDODERM REMOVE PATCH NOTE XX SCH (01:30)
[2018-10-09 05:49] LABS: CREATININE 0.65 mg/dL (0.7-1.3)
[2018-10-09 07:30] VITALS: BP 120/69
[2018-10-09] MEDS: FERROUS SULFATE 220 MG/5 ML ORAL SOL PO SCH ×2 (11:00→17:46)
[2018-10-09] MEDS: FUROSEMIDE 10 MG/ML ORAL SOL PO SCH (11:01)
[2018-10-09] MEDS: THIAMINE 100MG TABLET PO SCH (11:01)
[2018-10-09] MEDS: FAMOTIDINE 20 MG TABLET PO SCH ×2 (11:01→20:57)
[2018-10-09] MEDS: ENOXAPARIN 40 MG/0.4 ML SQ SCH (11:01)
[2018-10-09] MEDS: LIDODERM 5% PATCH TD SCH (13:30)
[2018-10-09 14:00] VITALS: BP 134/76
[2018-10-09 18:49] VITALS: BP 153/81
[2018-10-09] MEDS: QUETIAPINE 25MG TABLET PO SCH (20:57)
[2018-10-10 00:15] VITALS: BP 128/77
[2018-10-10] MEDS: LIDODERM REMOVE PATCH NOTE XX SCH (00:51)
[2018-10-10 07:00] VITALS: BP 135/77
[2018-10-10] MEDS: FERROUS SULFATE 220 MG/5 ML ORAL SOL PO SCH ×2 (08:02→16:22)
[2018-10-10] MEDS: FAMOTIDINE 20 MG TABLET PO SCH ×2 (08:02→20:17)
[2018-10-10] MEDS: FUROSEMIDE 10 MG/ML ORAL SOL PO SCH (08:02)
[2018-10-10] MEDS: THIAMINE 100MG TABLET PO SCH (08:03)
[2018-10-10] MEDS: ONDANSETRON 2MG/ML, 2ML IVPB PRN (08:38)
[2018-10-10] MEDS ORDERED: FAMO20TA7 PO (11:24)
[2018-10-10] MEDS ORDERED: FERR220S6 PO (11:24)
[2018-10-10] MEDS ORDERED: QUET25TA7 PO (11:24)
[2018-10-10] MEDS ORDERED: ERGO500017 PO (11:24)
[2018-10-10] MEDS: ENOXAPARIN 40 MG/0.4 ML SQ SCH (12:06)
[2018-10-10] MEDS: ACETAMINOPHEN 325 MG TABLET PO PRN ×2 (12:06→16:23)
[2018-10-10 12:48] VITALS: BP 129/70
[2018-10-10] MEDS: LIDODERM 5% PATCH TD SCH (14:29)
[2018-10-10] MEDS: QUETIAPINE 25MG TABLET PO SCH (20:17)
[2018-10-10 20:50] VITALS: BP 128/73
[2018-10-11] MEDS: LIDODERM REMOVE PATCH NOTE XX SCH (01:36)
[2018-10-11 02:01] VITALS: BP 139/79
[2018-10-11 07:28] VITALS: BP 126/73
[2018-10-11] MEDS: THIAMINE 100MG TABLET PO SCH (09:56)
[2018-10-11] MEDS: FAMOTIDINE 20 MG TABLET PO SCH ×2 (09:56→20:17)
[2018-10-11] MEDS: FERROUS SULFATE 220 MG/5 ML ORAL SOL PO SCH ×2 (09:56→16:55)
[2018-10-11] MEDS: FUROSEMIDE 10 MG/ML ORAL SOL PO SCH (09:56)
[2018-10-11] MEDS: ENOXAPARIN 40 MG/0.4 ML SQ SCH (12:58)
[2018-10-11] MEDS: LIDODERM 5% PATCH TD SCH (12:58)
[2018-10-11 14:15] VITALS: BP 138/85
[2018-10-11 20:15] VITALS: BP 146/82
[2018-10-11] MEDS: ACETAMINOPHEN 325 MG TABLET PO PRN (20:17)
[2018-10-11] MEDS: QUETIAPINE 25MG TABLET PO SCH (20:18)
[2018-10-12] MEDS: LIDODERM REMOVE PATCH NOTE XX SCH (01:30)
[2018-10-12 01:50] VITALS: BP 152/82
[2018-10-12 05:46] LABS: CREATININE 0.69 mg/dL (0.7-1.3)
[2018-10-12 07:07] VITALS: BP 135/77
[2018-10-12] MEDS: THIAMINE 100MG TABLET PO SCH (09:41)
[2018-10-12] MEDS: FERROUS SULFATE 220 MG/5 ML ORAL SOL PO SCH (09:42)
[2018-10-12] MEDS: FAMOTIDINE 20 MG TABLET PO SCH (09:42)
[2018-10-12] MEDS: FUROSEMIDE 10 MG/ML ORAL SOL PO SCH (09:43)
[2018-10-12 12:08] VITALS: BP 143/86
== END 2018-10-12 13:05 | disposition home or self-care (01) | DRG 870 ==
LOC: ED 09-17 01:00 → EDIP 09-17 01:27 → CCU 09-17 11:50 → 3NE 09-26 17:44
PROVIDERS: ADMIT Hospitalist; ATTEND Hospitalist
PROC: 5A1955Z Respiratory Ventilation, Greater than 96 Consecutive Hours (ICD-10-PCS; principal; 2018-09-17)
PROC: 02HV33Z Insertion of Infusion Device into Superior Vena Cava, Percutaneous Approach (ICD-10-PCS; 2018-09-17)
PROC: 0BH17EZ Insertion of Endotracheal Airway into Trachea, Via Natural or Artificial Opening (ICD-10-PCS; 2018-09-17)
PROC: 0BJ08ZZ Inspection of Tracheobronchial Tree, Via Natural or Artificial Opening Endoscopic (ICD-10-PCS; 2018-09-19)
DX: A41.9 Sepsis, unspecified organism (principal); R65.21 Severe sepsis with septic shock; J96.01 Acute respiratory failure with hypoxia; G93.41 Metabolic encephalopathy; J69.0 Pneumonitis due to inhalation of food and vomit; F10.239 Alcohol dependence with withdrawal, unspecified; K57.92 Diverticulitis of intestine, part unspecified, without perforation or abscess without bleeding; N39.0 Urinary tract infection, site not specified; Z99.11 Dependence on respirator [ventilator] status; Z88.6 Allergy status to analgesic agent; B96.20 Unspecified Escherichia coli [E. coli] as the cause of diseases classified elsewhere; D50.9 Iron deficiency anemia, unspecified; E55.9 Vitamin D deficiency, unspecified; G89.29 Other chronic pain; M54.9 Dorsalgia, unspecified; I10 Essential (primary) hypertension; I48.91 Unspecified atrial fibrillation; I70.0 Atherosclerosis of aorta; I73.9 Peripheral vascular disease, unspecified; K40.90 Unilateral inguinal hernia, without obstruction or gangrene, not specified as recurrent; M19.90 Unspecified osteoarthritis, unspecified site; M54.40 Lumbago with sciatica, unspecified side; N50.89 Other specified disorders of the male genital organs; Z59.0 Homelessness; Z87.891 Personal history of nicotine dependence; Z90.49 Acquired absence of other specified parts of digestive tract; Z91.19 Patient's noncompliance with other medical treatment and regimen
CPT/HCPCS: 31500; 31624; 36415; 36556; 36600; 71045; 71250; 74230; 76700; 80048; 80053; 80202; 80307; 81001; 82040; 82306; 82378; 82565; 82607; 82728; 82803; 83540; 83550; 83605; 83735; 84100; 84145; 84478; 85025; 85651; 87040; 87070; 87077; 87081; 87086; 87186; 87205; 87400; 93005; 94002; 94003; 94150; 94640; 94667; 94668; 96361; 96365; 96366; 96368; 96375; 99291; G0378; J0696; J1650; J2250; J2405; J2543; J2550; J2704; J3370; J3475; J7060; J7613; J7620; P9047; J0330; J1940; J2270; J3490; J7030; J7040; J7050

== ENCOUNTER 2018-12-18 13:25 | Emergency (ER) | payer MEDICARE ==
[~2018-12-18] VITALS: Ht 167.6 cm; Wt 82.0 kg
[~2018-12-18 13:25] MED LIST changes: +ENOX40SY4 SQ; +ERGO500017 PO; +FAMO20TA7 PO; +FERR220S6 PO; +FURO10SO PO; +FURO10VI37 IV; +LIDO700A20 TD; +QUET25TA7 PO
[2018-12-18 13:36] VITALS: BP 129/74
== END 2018-12-18 15:10 | disposition home or self-care (01) ==
LOC: ED 15:04
DX: B85.1 Pediculosis due to Pediculus humanus corporis (principal); B85.0 Pediculosis due to Pediculus humanus capitis; B85.3 Phthiriasis; I10 Essential (primary) hypertension; Z90.49 Acquired absence of other specified parts of digestive tract
CPT/HCPCS: 99281; 99282; 99283

== ENCOUNTER 2019-02-12 02:21 | Emergency (ER) | payer MEDICARE ==
[~2019-02-12] VITALS: Ht 167.6 cm; Wt 77.0 kg
--- NOTE | 2019-02-12 02:50 | NUR ---
josue. report received from ems. pt had glf today. no loc. small abrasion on forehead. bleeding controlled. bug bite all over the body and open sore on legs. =+etoh. pt's aox4. resps even and unlabored. bp/spo2 monitors in place. call light within reach. edmd at bedside to evaluate.
--- NOTE | 2019-02-12 03:01 | NUR ---
pt povided warm blancket.
--- NOTE | 2019-02-12 03:08 | NUR ---
pt in ct
--- NOTE | 2019-02-12 03:29 | NUR ---
Note spenser in ED - 02/12/19 at 0329 by PAM Patient sleeping. Equal chest rise and fall and No signs of distress. Sitter in doorway for safety. Will continue to monitor.
[2019-02-12 03:54] VITALS: BP 128/55
--- NOTE | 2019-02-12 04:15 | NUR ---
PT SLEEPING IN [facility]. BP/SPO2 MONITORS IN PLACE. CALL LIGHT WITHIN REACH. RESPS EVEN AND UNLABORED.
--- NOTE | 2019-02-12 05:37 | NUR ---
PT GIVEN DC INSTRUCTIONS. PT'S AOX4. RESPS EVEN AND UNLABORED. NO ACUTE DISTRESS AT DC. PT WHEELED TO DC WITH SECURITY.
== END 2019-02-12 05:38 | disposition home or self-care (01) ==
LOC: ED 03:38
DX: S00.01XA Abrasion of scalp, initial encounter (principal); S06.5X9A Traumatic subdural hemorrhage with loss of consciousness of unspecified duration, initial encounter; Z90.49 Acquired absence of other specified parts of digestive tract; Z72.9 Problem related to lifestyle, unspecified; Z87.891 Personal history of nicotine dependence; F10.229 Alcohol dependence with intoxication, unspecified; W19.XXXA Unspecified fall, initial encounter; Y93.89 Activity, other specified; Y92.410 Unspecified street and highway as the place of occurrence of the external cause; Y99.8 Other external cause status
CPT/HCPCS: 70450; 72125; 99284

== ENCOUNTER 2019-02-22 11:41 | Inpatient (IN) | payer MEDICAID, MEDICARE ==
[~2019-02-22] VITALS: Ht 170.2 cm; Wt 79.0 kg
[~2019-02-22 11:41] MED LIST changes: +FERR220E PO; -FERR220S6 PO
[2019-02-22] MEDS ORDERED: HYDR-826 PO (12:14)
[2019-02-22 12:53] LABS: BASOPHILS # (AUTO) 0.03 x10^3/uL (0-0.1); BASOPHILS % (AUTO) 0 % (0-1); EOSINOPHILS # (AUTO) 0.72 x10^3/uL (0-0.4); EOSINOPHILS % (AUTO) 8 % (1-7); LYMPHOCYTES # (AUTO) 2.36 x10^3/uL (1-3.4); LYMPHOCYTES % (AUTO) 27 % (22-44); MD NO; MEAN CORPUSCULAR HEMOGLOBIN 28.3 pg (27.5-34.5); MEAN CORPUSCULAR HGB CONC 32.1 g/dL (33.2-36.2); MEAN CORPUSCULAR VOLUME 88.2 fL (81-97); MONOCYTES # (AUTO) 0.79 x10^3/uL (0.2-0.8); MONOCYTES % (AUTO) 9 % (2-9); NEUTROPHILS # (AUTO) 4.85 x10^3/uL (1.8-6.8); NEUTROPHILS % (AUTO) 56 % (42-75); PLATELET COUNT 348 x10^3/uL (130-400); RED BLOOD COUNT 4.69 x10^6/uL (4.38-5.82); RED CELL DISTRIBUTION WIDTH 17.4 % (9.4-14.8)
[2019-02-22 12:56] LABS: ALBUMIN 2.4 g/dL (3.4-5.0); ANION GAP 4 mmol/L (5-15); CALCIUM 8.2 mg/dL (8.5-10.1); CHLORIDE 113 mmol/L (98-107); CREATININE 0.64 mg/dL (0.7-1.3)
[2019-02-22] MEDS ORDERED: AMPICILLIN/SULBACTAM 3 GM in SODIUM CHLORIDE 0.9% 100 ML IV ONE (14:00)
[2019-02-22] MEDS ORDERED: SODIUM CHLORIDE FLUSH 10ML SYR IVF PRN (14:00)
[2019-02-22] MEDS ORDERED: SODIUM CHLORIDE FLUSH 10ML SYR IVF ONE (14:00)
[2019-02-22] MEDS ORDERED: LORazepam 2 MG/ML, 1ML IV PRN ×5 (14:30)
[2019-02-22] MEDS ORDERED: ACETAMINOPHEN 325 MG TABLET PO PRN (14:30)
[2019-02-22] MEDS ORDERED: LORazepam 1MG TABLET PO PRN ×4 (14:30)
--- NOTE | 2019-02-22 14:59 | NUR ---
SBAR TELEPHONE HAND-OFF REPORT GIVEN TO MOLLY OLIVO.
[2019-02-22 15:48] VITALS: BP 160/82
[2019-02-22] MEDS ORDERED: FOLIC ACID 5 MG/ML IM ONE (16:00)
[2019-02-22] MEDS ORDERED: hydrALAzine 20 MG/ML, 1ML IVPush PRN (16:00)
[2019-02-22] MEDS ORDERED: KETOROLAC 30 MG/1 ML IV PRN (16:00)
[2019-02-22] MEDS ORDERED: THIAMINE 200 MG in DEXTROSE 5% 50 ML IVPB ONE (16:00)
[2019-02-22] MEDS ORDERED: BACLOFEN 10 MG TABLET PO PRN (16:00)
[2019-02-22] MEDS ORDERED: VANCOMYCIN PER PHARMACY MC PRN (17:00)
[2019-02-22] MEDS ORDERED: PHARMACOKINETIC MONITORING MC PRN (17:00)
[2019-02-22] MEDS ORDERED: PHARMACOKINETIC CONSULTATION MC ONE (17:00)
[2019-02-22] MEDS: ENOXAPARIN 40 MG/0.4 ML SQ SCH (17:24)
[2019-02-22] MEDS ORDERED: FOLIC ACID 1 MG TABLET PO ONE (18:00)
[2019-02-22 18:46] VITALS: BP 149/77
[2019-02-22] MEDS: VANCOMYCIN 1,400 MG in SODIUM CHLORIDE 0.9% 250 ML IV SCH (19:42)
[2019-02-22] MEDS: LORazepam 0.5MG TABLET PO PRN (20:01)
[2019-02-22] MEDS: GABAPENTIN 300 MG CAPSULE PO PRN (22:05)
[2019-02-23] MEDS: AMPICILLIN/SULBACTAM 3 GM in SODIUM CHLORIDE 0.9% 100 ML IV SCH ×3 (01:32→17:21)
[2019-02-23 01:39] VITALS: BP 159/85
[2019-02-23] MEDS: IBUPROFEN 600 MG TABLET PO PRN (01:45)
[2019-02-23] MEDS: LORazepam 0.5MG TABLET PO PRN (01:45)
[2019-02-23 05:08] LABS: BASOPHILS # (AUTO) 0.06 x10^3/uL (0-0.1); BASOPHILS % (AUTO) 1 % (0-1); EOSINOPHILS # (AUTO) 0.84 x10^3/uL (0-0.4); EOSINOPHILS % (AUTO) 10 % (1-7); LYMPHOCYTES # (AUTO) 1.52 x10^3/uL (1-3.4); LYMPHOCYTES % (AUTO) 18 % (22-44); MD NO; MEAN CORPUSCULAR HEMOGLOBIN 28.2 pg (27.5-34.5); MEAN CORPUSCULAR HGB CONC 32.2 g/dL (33.2-36.2); MEAN CORPUSCULAR VOLUME 87.8 fL (81-97); MEAN PLATELET VOLUME 7.3 fL (7.4-10.4); MONOCYTES # (AUTO) 0.89 x10^3/uL (0.2-0.8); MONOCYTES % (AUTO) 11 % (2-9); NEUTROPHILS % (AUTO) 61 % (42-75); PLATELET COUNT 320 x10^3/uL (130-400); RED BLOOD COUNT 4.45 x10^6/uL (4.38-5.82); RED CELL DISTRIBUTION WIDTH 16.9 % (9.4-14.8)
[2019-02-23 05:19] LABS: CHLORIDE 110 mmol/L (98-107)
[2019-02-23 05:26] LABS: % IRON SATURATION 22 % (20-55); ANION GAP 6 mmol/L (5-15); CREATININE 0.66 mg/dL (0.7-1.3); IRON LEVEL 42 mcg/dL (65-175); TOTAL IRON BINDING CAPACITY 195 mcg/dL (250-450)
[2019-02-23 07:15] VITALS: BP 159/90
[2019-02-23] MEDS: FERROUS SULFATE 325 MG TABLET PO SCH ×2 (09:21→17:21)
[2019-02-23] MEDS: CHOLECALCIFEROL 1,000 UNIT TABLET PO SCH (09:21)
[2019-02-23 09:27] LABS: ALANINE AMINOTRANSFERASE 13 U/L (12-78); ALBUMIN 2.3 g/dL (3.4-5.0)
[2019-02-23 09:30] LABS: ALKALINE PHOSPHATASE 123 U/L (45-117); BILIRUBIN,TOTAL 0.4 mg/dL (0.2-1.0); TOTAL PROTEIN 6.6 g/dL (6.4-8.2)
[2019-02-23 09:33] LABS: BILIRUBIN, DIRECT < 0.1 mg/dL (0.1-0.2); BILIRUBIN,INDIRECT 0.3 mg/dL (0.0-2.0)
[2019-02-23 12:03] VITALS: BP 148/85
[2019-02-23] MEDS ORDERED: OMNIPAQUE 350 MG/ML, 100ML BOTTLE ONE (16:39)
[2019-02-23] MEDS: ENOXAPARIN 40 MG/0.4 ML SQ SCH (17:22)
[2019-02-23] MEDS: VANCOMYCIN 1,400 MG in SODIUM CHLORIDE 0.9% 250 ML IV SCH (18:13)
[2019-02-23 19:00] VITALS: BP 147/78
[2019-02-24] MEDS: AMPICILLIN/SULBACTAM 3 GM in SODIUM CHLORIDE 0.9% 100 ML IV SCH ×3 (01:14→19:48)
[2019-02-24 01:54] VITALS: BP 155/78
[2019-02-24 05:36] LABS: BASOPHILS # (AUTO) 0.07 x10^3/uL (0-0.1); BASOPHILS % (AUTO) 1 % (0-1); EOSINOPHILS # (AUTO) 0.83 x10^3/uL (0-0.4); EOSINOPHILS % (AUTO) 10 % (1-7); LYMPHOCYTES # (AUTO) 1.44 x10^3/uL (1-3.4); LYMPHOCYTES % (AUTO) 17 % (22-44); MD NO; MEAN CORPUSCULAR HEMOGLOBIN 27.6 pg (27.5-34.5); MEAN CORPUSCULAR HGB CONC 31.7 g/dL (33.2-36.2); MEAN CORPUSCULAR VOLUME 87.1 fL (81-97); MEAN PLATELET VOLUME 7.2 fL (7.4-10.4); MONOCYTES % (AUTO) 9 % (2-9); NEUTROPHILS # (AUTO) 5.38 x10^3/uL (1.8-6.8); NEUTROPHILS % (AUTO) 63 % (42-75); PLATELET COUNT 316 x10^3/uL (130-400); RED BLOOD COUNT 4.67 x10^6/uL (4.38-5.82); RED CELL DISTRIBUTION WIDTH 17.2 % (9.4-14.8)
[2019-02-24 05:44] LABS: HCT (SEDRATE) 40.6 % (39.2-51.8)
[2019-02-24 05:48] LABS: ANION GAP 5 mmol/L (5-15); C-REACTIVE PROTEIN, QUANT 0.74 mg/dL (0.02-0.49); CHLORIDE 110 mmol/L (98-107); CREATININE 0.63 mg/dL (0.7-1.3)
[2019-02-24 07:53] VITALS: BP 165/92
[2019-02-24] MEDS: LISINOPRIL 5 MG TABLET PO SCH (08:49)
[2019-02-24] MEDS: FERROUS SULFATE 325 MG TABLET PO SCH ×2 (08:49→16:30)
[2019-02-24] MEDS: CHOLECALCIFEROL 1,000 UNIT TABLET PO SCH (08:49)
[2019-02-24 12:35] VITALS: BP 138/77
[2019-02-24] MEDS: ENOXAPARIN 40 MG/0.4 ML SQ SCH (16:30)
[2019-02-24] MEDS: VANCOMYCIN 1,400 MG in SODIUM CHLORIDE 0.9% 250 ML IV SCH (16:30)
[2019-02-24 18:34] VITALS: BP 145/77
[2019-02-25 01:42] VITALS: BP 145/84
[2019-02-25] MEDS: AMPICILLIN/SULBACTAM 3 GM in SODIUM CHLORIDE 0.9% 100 ML IV SCH ×3 (03:58→19:37)
[2019-02-25 07:01] VITALS: BP 116/73
[2019-02-25] MEDS: LISINOPRIL 5 MG TABLET PO SCH (09:13)
[2019-02-25] MEDS: FERROUS SULFATE 325 MG TABLET PO SCH ×2 (09:13→17:48)
[2019-02-25] MEDS: CHOLECALCIFEROL 1,000 UNIT TABLET PO SCH (09:13)
[2019-02-25 14:02] VITALS: BP 150/82
[2019-02-25] MEDS: VANCOMYCIN 1,400 MG in SODIUM CHLORIDE 0.9% 250 ML IV SCH (17:48)
[2019-02-25] MEDS: ENOXAPARIN 40 MG/0.4 ML SQ SCH (17:48)
[2019-02-25 19:22] VITALS: BP 123/67
[2019-02-26 01:29] VITALS: BP 104/70
[2019-02-26] MEDS: AMPICILLIN/SULBACTAM 3 GM in SODIUM CHLORIDE 0.9% 100 ML IV SCH ×3 (03:33→21:42)
[2019-02-26 07:05] VITALS: BP 129/79
[2019-02-26] MEDS: CHOLECALCIFEROL 1,000 UNIT TABLET PO SCH (08:57)
[2019-02-26] MEDS: FERROUS SULFATE 325 MG TABLET PO SCH ×2 (08:57→17:17)
[2019-02-26] MEDS: LISINOPRIL 5 MG TABLET PO SCH (08:57)
[2019-02-26 14:00] VITALS: BP 108/76
[2019-02-26] MEDS ORDERED: VANCOMYCIN 1,600 MG in SODIUM CHLORIDE 0.9% 250 ML IV SCH (17:00)
[2019-02-26] MEDS: ENOXAPARIN 40 MG/0.4 ML SQ SCH (17:17)
[2019-02-26 19:39] VITALS: BP 146/75
[2019-02-27 02:02] VITALS: BP 144/76
[2019-02-27] MEDS: AMPICILLIN/SULBACTAM 3 GM in SODIUM CHLORIDE 0.9% 100 ML IV SCH ×3 (04:11→19:37)
[2019-02-27 05:54] LABS: BASOPHILS # (AUTO) 0.04 x10^3/uL (0-0.1); BASOPHILS % (AUTO) 1 % (0-1); EOSINOPHILS # (AUTO) 1.05 x10^3/uL (0-0.4); EOSINOPHILS % (AUTO) 12 % (1-7); LYMPHOCYTES # (AUTO) 1.74 x10^3/uL (1-3.4); LYMPHOCYTES % (AUTO) 20 % (22-44); MD NO; MEAN CORPUSCULAR HEMOGLOBIN 27.9 pg (27.5-34.5); MEAN CORPUSCULAR HGB CONC 31.6 g/dL (33.2-36.2); MEAN CORPUSCULAR VOLUME 88.2 fL (81-97); MEAN PLATELET VOLUME 7.6 fL (7.4-10.4); MONOCYTES # (AUTO) 1.08 x10^3/uL (0.2-0.8); MONOCYTES % (AUTO) 12 % (2-9); NEUTROPHILS # (AUTO) 4.84 x10^3/uL (1.8-6.8); NEUTROPHILS % (AUTO) 55 % (42-75); PLATELET COUNT 282 x10^3/uL (130-400); RED BLOOD COUNT 4.62 x10^6/uL (4.38-5.82)
[2019-02-27 06:05] LABS: ANION GAP 8 mmol/L (5-15); CALCIUM 8.1 mg/dL (8.5-10.1); CHLORIDE 109 mmol/L (98-107); CREATININE 0.63 mg/dL (0.7-1.3)
[2019-02-27 06:35] VITALS: BP 143/84
[2019-02-27] MEDS: FERROUS SULFATE 325 MG TABLET PO SCH ×2 (08:00→16:01)
[2019-02-27] MEDS: LISINOPRIL 5 MG TABLET PO SCH (08:07)
[2019-02-27] MEDS: CHOLECALCIFEROL 1,000 UNIT TABLET PO SCH (08:07)
[2019-02-27] MEDS ORDERED: GADOBUTROL 10 MMOL/10 ML PFS ONE (09:23)
[2019-02-27 12:46] VITALS: BP 148/84
[2019-02-27] MEDS ORDERED: BACITRACIN 50,000 UNIT ONE (13:32)
[2019-02-27] MEDS ORDERED: MIDAZOLAM 1 MG/ML, 2ML ONE (15:58)
[2019-02-27] MEDS ORDERED: FENTANYL PF 250 MCG/5ML ONE (15:58)
[2019-02-27] MEDS ORDERED: PROPOFOL 10 MG/ML, 20ML ONE (15:59)
[2019-02-27] MEDS ORDERED: CEFAZOLIN 1,000 MG ONE ×2 (16:00)
[2019-02-27] MEDS ORDERED: SODIUM CHLORIDE 0.9% PF 10ML ONE (16:00)
[2019-02-27] MEDS ORDERED: LABETALOL 5MG/ML, 20ML IV PRN (17:00)
[2019-02-27] MEDS ORDERED: MORPHINE SULFATE 4 MG/ML, 1ML IVPush PRN (17:00)
[2019-02-27] MEDS ORDERED: ACETAMINOPHEN 325 MG TABLET PO PRN (17:00)
[2019-02-27] MEDS ORDERED: PROMETHAZINE 25 MG/ML, 1ML IV PRN (17:00)
[2019-02-27] MEDS ORDERED: OXYcodone 5 MG/5 ML ORAL.SOL UDC PO PRN (17:00)
[2019-02-27] MEDS ORDERED: PROMETHAZINE 12.5 MG SUPP PR PRN (17:00)
[2019-02-27] MEDS ORDERED: HYDROmorphone 2 MG/ML, 1ML IVPush PRN (17:00)
[2019-02-27] MEDS ORDERED: MEPERIDINE/PF 25MG/0.5ML IVPush PRN (17:00)
[2019-02-27] MEDS ORDERED: ONDANSETRON 2MG/ML, 2ML IV PRN (17:00)
[2019-02-27] MEDS ORDERED: ONDANSETRON ODT 8 MG PO PRN (17:00)
[2019-02-27] MEDS ORDERED: PROMETHAZINE 25 MG/ML, 1ML IM PRN ×2 (17:00)
[2019-02-27] MEDS ORDERED: hydrALAzine 20 MG/ML, 1ML IV PRN (17:00)
[2019-02-27] MEDS ORDERED: PROMETHAZINE 25 MG SUPP PR PRN (17:00)
[2019-02-27] MEDS: FENTANYL PF 100 MCG/2ML IV PRN ×3 (17:01→18:11)
[2019-02-27] MEDS ORDERED: OXYcodone 5 MG/5 ML ORAL.SOL UDC ONE (17:43)
[2019-02-27] MEDS ORDERED: FENTANYL PF 100 MCG/2ML ONE (18:08)
[2019-02-27 18:40] VITALS: BP 159/84
[2019-02-27] MEDS: ENOXAPARIN 40 MG/0.4 ML SQ SCH (19:37)
[2019-02-28 01:16] VITALS: BP 138/54
[2019-02-28] MEDS: AMPICILLIN/SULBACTAM 3 GM in SODIUM CHLORIDE 0.9% 100 ML IV SCH (04:06)
[2019-02-28 06:35] VITALS: BP 144/84
[2019-02-28] MEDS: CHOLECALCIFEROL 1,000 UNIT TABLET PO SCH (07:52)
[2019-02-28] MEDS: FERROUS SULFATE 325 MG TABLET PO SCH ×2 (07:53→17:36)
[2019-02-28] MEDS: LISINOPRIL 5 MG TABLET PO SCH (07:53)
[2019-02-28] MEDS: PIPERACILLIN/TAZO/PMX 4.5GM 100 ML IV SCH ×3 (11:39→23:52)
[2019-02-28 14:00] VITALS: BP 102/66
[2019-02-28 19:05] VITALS: BP 138/73
[2019-02-28] MEDS: ENOXAPARIN 40 MG/0.4 ML SQ SCH (19:31)
[2019-03-01 01:44] VITALS: BP 118/68
[2019-03-01] MEDS: PIPERACILLIN/TAZO/PMX 4.5GM 100 ML IV SCH ×4 (05:48→23:59)
[2019-03-01 05:55] LABS: HCT (SEDRATE) 41.3 % (39.2-51.8)
[2019-03-01 06:35] VITALS: BP 96/63
[2019-03-01] MEDS: LISINOPRIL 5 MG TABLET PO SCH (08:07)
[2019-03-01] MEDS: CHOLECALCIFEROL 1,000 UNIT TABLET PO SCH (08:07)
[2019-03-01] MEDS: FERROUS SULFATE 325 MG TABLET PO SCH ×2 (08:08→16:18)
[2019-03-01] MEDS: IBUPROFEN 600 MG TABLET PO PRN (13:25)
[2019-03-01 13:27] VITALS: BP 126/79
[2019-03-01] MEDS: GABAPENTIN 300 MG CAPSULE PO PRN (16:18)
[2019-03-01 19:17] VITALS: BP 138/81
[2019-03-01] MEDS: ENOXAPARIN 40 MG/0.4 ML SQ SCH (19:59)
[2019-03-02 02:06] VITALS: BP 109/65
[2019-03-02] MEDS: PIPERACILLIN/TAZO/PMX 4.5GM 100 ML IV SCH (05:46)
[2019-03-02 05:51] LABS: BASOPHILS # (AUTO) 0.05 x10^3/uL (0-0.1); BASOPHILS % (AUTO) 1 % (0-1); EOSINOPHILS # (AUTO) 1.03 x10^3/uL (0-0.4); EOSINOPHILS % (AUTO) 11 % (1-7); LYMPHOCYTES % (AUTO) 21 % (22-44); MD NO; MEAN CORPUSCULAR HEMOGLOBIN 28.3 pg (27.5-34.5); MEAN CORPUSCULAR HGB CONC 31.8 g/dL (33.2-36.2); MEAN CORPUSCULAR VOLUME 88.9 fL (81-97); MONOCYTES # (AUTO) 1.02 x10^3/uL (0.2-0.8); MONOCYTES % (AUTO) 11 % (2-9); NEUTROPHILS # (AUTO) 5.15 x10^3/uL (1.8-6.8); NEUTROPHILS % (AUTO) 56 % (42-75); PLATELET COUNT 275 x10^3/uL (130-400); RED BLOOD COUNT 4.48 x10^6/uL (4.38-5.82); RED CELL DISTRIBUTION WIDTH 17.1 % (9.4-14.8)
[2019-03-02 05:55] LABS: HCT (SEDRATE) 39.4 % (39.2-51.8)
[2019-03-02 06:13] LABS: CHLORIDE 111 mmol/L (98-107)
[2019-03-02 06:28] LABS: ALANINE AMINOTRANSFERASE 17 U/L (12-78); ALBUMIN 2.6 g/dL (3.4-5.0); ALKALINE PHOSPHATASE 112 U/L (45-117); ANION GAP 3 mmol/L (5-15); BILIRUBIN,TOTAL 0.2 mg/dL (0.2-1.0); C-REACTIVE PROTEIN, QUANT 0.65 mg/dL (0.02-0.49); CALCIUM 8.2 mg/dL (8.5-10.1); CREATININE 0.71 mg/dL (0.7-1.3); TOTAL PROTEIN 7.3 g/dL (6.4-8.2)
[2019-03-02 06:45] VITALS: BP 127/81
[2019-03-02] MEDS: FERROUS SULFATE 325 MG TABLET PO SCH ×2 (08:00→18:30)
[2019-03-02] MEDS: CEFAZOLIN 2,000 MG in SODIUM CHLORIDE 0.9% 50 ML IV SCH ×2 (11:03→19:57)
[2019-03-02] MEDS: CHOLECALCIFEROL 1,000 UNIT TABLET PO SCH (11:03)
[2019-03-02] MEDS: LISINOPRIL 5 MG TABLET PO SCH (11:03)
[2019-03-02 12:04] VITALS: BP 145/88
[2019-03-02] MEDS: ENOXAPARIN 40 MG/0.4 ML SQ SCH (19:57)
[2019-03-02 20:06] VITALS: BP 129/72
[2019-03-03 02:02] VITALS: BP 116/68
[2019-03-03] MEDS: CEFAZOLIN 2,000 MG in SODIUM CHLORIDE 0.9% 50 ML IV SCH ×3 (03:20→18:33)
[2019-03-03 07:10] VITALS: BP 135/79
[2019-03-03] MEDS: CHOLECALCIFEROL 1,000 UNIT TABLET PO SCH (08:38)
[2019-03-03] MEDS: LISINOPRIL 5 MG TABLET PO SCH (08:38)
[2019-03-03] MEDS: FERROUS SULFATE 325 MG TABLET PO SCH ×2 (08:39→16:38)
[2019-03-03 14:25] VITALS: BP_SYST 161
[2019-03-03 19:04] VITALS: BP 152/82
[2019-03-03] MEDS: ENOXAPARIN 40 MG/0.4 ML SQ SCH (19:30)
[2019-03-04 01:25] VITALS: BP 120/78
[2019-03-04] MEDS: CEFAZOLIN 2,000 MG in SODIUM CHLORIDE 0.9% 50 ML IV SCH ×3 (02:36→19:28)
[2019-03-04 07:39] VITALS: BP 133/83
[2019-03-04] MEDS: CHOLECALCIFEROL 1,000 UNIT TABLET PO SCH (08:12)
[2019-03-04] MEDS: FERROUS SULFATE 325 MG TABLET PO SCH ×2 (08:12→16:28)
[2019-03-04] MEDS: LISINOPRIL 5 MG TABLET PO SCH (08:12)
[2019-03-04 13:48] VITALS: BP 151/90
[2019-03-04] MEDS ORDERED: LISI5TAB7 PO (13:55)
[2019-03-04] MEDS ORDERED: FERR-51 PO (13:55)
[2019-03-04] MEDS ORDERED: ACET325T26 PO (13:55)
[2019-03-04] MEDS ORDERED: CHOL10003 PO (13:55)
[2019-03-04] MEDS ORDERED: GABA300C10 PO (13:55)
[2019-03-04 18:52] VITALS: BP 147/80
[2019-03-04] MEDS: ENOXAPARIN 40 MG/0.4 ML SQ SCH (19:28)
[2019-03-05 00:50] VITALS: BP 127/75
[2019-03-05] MEDS: CEFAZOLIN 2,000 MG in SODIUM CHLORIDE 0.9% 50 ML IV SCH ×3 (03:00→19:08)
[2019-03-05 08:01] VITALS: BP 104/70
[2019-03-05] MEDS: CHOLECALCIFEROL 1,000 UNIT TABLET PO SCH (08:13)
[2019-03-05] MEDS: FERROUS SULFATE 325 MG TABLET PO SCH ×2 (08:13→18:17)
[2019-03-05] MEDS: LISINOPRIL 5 MG TABLET PO SCH (08:13)
[2019-03-05 18:15] VITALS: BP 101/75
[2019-03-05 19:52] VITALS: BP 138/84
[2019-03-05] MEDS: ENOXAPARIN 40 MG/0.4 ML SQ SCH (20:09)
[2019-03-06 00:40] VITALS: BP 154/80
[2019-03-06] MEDS: CEFAZOLIN 2,000 MG in SODIUM CHLORIDE 0.9% 50 ML IV SCH ×2 (02:37→11:23)
[2019-03-06 09:21] VITALS: BP 121/74
[2019-03-06] MEDS ORDERED: CEFA2FRO IV (09:22)
[2019-03-06] MEDS: FERROUS SULFATE 325 MG TABLET PO SCH (09:23)
[2019-03-06] MEDS: LISINOPRIL 5 MG TABLET PO SCH (09:23)
[2019-03-06] MEDS: CHOLECALCIFEROL 1,000 UNIT TABLET PO SCH (09:23)
[2019-03-06] MEDS: GABAPENTIN 300 MG CAPSULE PO PRN (11:36)
[2019-03-06 14:14] VITALS: BP 127/80
== END 2019-03-06 18:30 | DRG 477 ==
LOC: ED 13:45 → EDIP 13:53 → ED 14:13 → 3NE 15:46
PROVIDERS: ADMIT Hospitalist; ATTEND Hospitalist
PROC: 0QBG0ZX Excision of Right Tibia, Open Approach, Diagnostic (ICD-10-PCS; 2019-02-27)
PROC: 02HV33Z Insertion of Infusion Device into Superior Vena Cava, Percutaneous Approach (ICD-10-PCS; principal; 2019-03-03)
PROC: B5181ZA Fluoroscopy of Superior Vena Cava using Low Osmolar Contrast, Guidance (ICD-10-PCS; 2019-03-03)
PROC: B548ZZA Ultrasonography of Superior Vena Cava, Guidance (ICD-10-PCS; 2019-03-03)
DX: M86.161 Other acute osteomyelitis, right tibia and fibula (principal); E43 Unspecified severe protein-calorie malnutrition; L97.909 Non-pressure chronic ulcer of unspecified part of unspecified lower leg with unspecified severity; L03.116 Cellulitis of left lower limb; L03.115 Cellulitis of right lower limb; L97.919 Non-pressure chronic ulcer of unspecified part of right lower leg with unspecified severity; D50.9 Iron deficiency anemia, unspecified; E55.9 Vitamin D deficiency, unspecified; F10.20 Alcohol dependence, uncomplicated; G62.1 Alcoholic polyneuropathy; I10 Essential (primary) hypertension; I73.9 Peripheral vascular disease, unspecified; K40.91 Unilateral inguinal hernia, without obstruction or gangrene, recurrent; B95.61 Methicillin susceptible Staphylococcus aureus infection as the cause of diseases classified elsewhere; Z68.27 Body mass index [BMI] 27.0-27.9, adult; Z59.0 Homelessness; Z75.1 Person awaiting admission to adequate facility elsewhere; Z82.5 Family history of asthma and other chronic lower respiratory diseases; Z87.891 Personal history of nicotine dependence; Z90.49 Acquired absence of other specified parts of digestive tract; Z91.14 Patient's other noncompliance with medication regimen; Z88.5 Allergy status to narcotic agent
CPT/HCPCS: 36415; 36573; 71046; 80048; 80053; 80076; 80202; 82040; 82306; 82784; 82787; 83540; 83550; 83605; 83735; 83970; 84100; 84145; 85025; 85651; 86140; 86480; 86704; 86706; 86708; 86709; 86803; 87040; 87070; 87075; 87077; 87186; 87205; 87340; 87806; 88305; 96374; A9585; G0378; J0295; J0690; J1650; J2250; J2543; J2704; J3010; J3370; J3411; Q9967; C1751; G0475; J7050

== ENCOUNTER 2019-07-19 02:16 | Emergency (ER) | payer MEDICARE ==
[~2019-07-19] VITALS: Ht 172.7 cm; Wt 75.0 kg
[~2019-07-19 02:16] MED LIST changes: +ACET325T26 PO; +AZIT500T10 PO; -AZIT500T5 PO; +CEFA2FRO IV; +CHOL10003 PO; +FERR-51 PO; +GABA300C10 PO; +HYDR-826 PO; +LISI5TAB7 PO
--- NOTE | 2019-07-19 02:45 | NUR ---
DENIS JACOBSON [facility] FOR C/O GENERALIZED PAIN X 4 YEARS, H/X HTN, NONCOMPLIANT WITH MEDICATIONS. B/P-150/98, HR-98, SPO2-94% R/A. ASSISTED PT INTO GOWN, MONITORS APPLIED, SIDERAILS UP X2, CALL LIGHT WITHIN REACH
[2019-07-19] MEDS ORDERED: ACETAMINOPHEN 500 MG TABLET ONE (03:17)
[2019-07-19 03:27] VITALS: BP 137/110
[2019-07-19] MEDS ORDERED: ACETAMINOPHEN 500 MG TABLET PO ONE (03:30)
== END 2019-07-19 03:30 ==
LOC: ED 03:24
DX: S39.012A Strain of muscle, fascia and tendon of lower back, initial encounter (principal); S80.02XA Contusion of left knee, initial encounter; S80.01XA Contusion of right knee, initial encounter; I10 Essential (primary) hypertension; F10.20 Alcohol dependence, uncomplicated; Z90.49 Acquired absence of other specified parts of digestive tract; Z87.891 Personal history of nicotine dependence; Z72.9 Problem related to lifestyle, unspecified; W00.0XXA Fall on same level due to ice and snow, initial encounter; Y92.89 Other specified places as the place of occurrence of the external cause; Y93.89 Activity, other specified; Y99.8 Other external cause status; Y90.9 Presence of alcohol in blood, level not specified
CPT/HCPCS: 99283

== ENCOUNTER 2019-07-19 10:54 | Emergency (ER) | payer MEDICARE ==
[~2019-07-19] VITALS: Ht 172.7 cm; Wt 73.0 kg
[2019-07-19 10:57] VITALS: BP 155/75
--- NOTE | 2019-07-19 11:21 | NUR ---
BP AND PULSE OX PLACED, WARM BLANKET PROVIDED, CALL LIGHT WITHIN REACH.
[2019-07-19 11:24] LABS: BASOPHILS # (AUTO) 0.04 x10^3/uL (0-0.1); BASOPHILS % (AUTO) 0 % (0-1); EOSINOPHILS # (AUTO) 0.36 x10^3/uL (0-0.4); EOSINOPHILS % (AUTO) 4 % (1-7); LYMPHOCYTES # (AUTO) 0.79 x10^3/uL (1-3.4); LYMPHOCYTES % (AUTO) 8 % (22-44); MD NO; MEAN CORPUSCULAR HEMOGLOBIN 30.7 pg (27.5-34.5); MEAN CORPUSCULAR HGB CONC 32.9 g/dL (33.2-36.2); MEAN CORPUSCULAR VOLUME 93.3 fL (81-97); MEAN PLATELET VOLUME 7.4 fL (7.4-10.4); MONOCYTES # (AUTO) 0.65 x10^3/uL (0.2-0.8); MONOCYTES % (AUTO) 6 % (2-9); NEUTROPHILS # (AUTO) 8.57 x10^3/uL (1.8-6.8); NEUTROPHILS % (AUTO) 82 % (42-75); PLATELET COUNT 197 x10^3/uL (130-400); RED BLOOD COUNT 4.35 x10^6/uL (4.38-5.82); RED CELL DISTRIBUTION WIDTH 16.5 % (9.4-14.8)
[2019-07-19 11:37] LABS: ALANINE AMINOTRANSFERASE 24 U/L (12-78); ALBUMIN 3.1 g/dL (3.4-5.0); ANION GAP 11 mmol/L (5-15); CHLORIDE 107 mmol/L (98-107); CREATININE 0.69 mg/dL (0.7-1.3)
[2019-07-19 11:41] LABS: ALKALINE PHOSPHATASE 146 U/L (45-117); BILIRUBIN,TOTAL 2.2 mg/dL (0.2-1.0); TOTAL PROTEIN 7.1 g/dL (6.4-8.2)
--- NOTE | 2019-07-19 12:28 | NUR ---
ALL RESULTS BACK, PT FOR RECHECK.
--- NOTE | 2019-07-19 13:37 | NUR ---
PT GIVEN DISCHARGE INSTRUCTIONS, PROVIDED CLEAN SOCKS AND TAXI VOUCHER TO LONGTERM.
== END 2019-07-19 13:39 | disposition home or self-care (01) ==
LOC: ED 12:43
DX: R60.0 Localized edema (principal); F10.10 Alcohol abuse, uncomplicated; I10 Essential (primary) hypertension; Z72.9 Problem related to lifestyle, unspecified; Z90.49 Acquired absence of other specified parts of digestive tract; Y90.9 Presence of alcohol in blood, level not specified
CPT/HCPCS: 36415; 71045; 80053; 83880; 85025; 99284

== ENCOUNTER 2019-08-13 22:46 | Emergency (ER) | payer MEDICARE ==
[~2019-08-13] VITALS: Ht 170.2 cm; Wt 80.1 kg
--- NOTE | 2019-08-13 23:25 | NUR ---
ASSISTED PT WITH UNDRESSING AND GETTING INTO GOWN. MONITORS APPLIED,SIDERAILS UP X2, CALL LIGHT WITHIN REACH
[2019-08-14 00:08] LABS: MEAN CORPUSCULAR HEMOGLOBIN 30.6 pg (27.5-34.5); MEAN CORPUSCULAR HGB CONC 33.1 g/dL (33.2-36.2); MEAN CORPUSCULAR VOLUME 92.7 fL (81-97); MEAN PLATELET VOLUME 7.1 fL (7.4-10.4); PLATELET COUNT 366 x10^3/uL (130-400); RED BLOOD COUNT 4.48 x10^6/uL (4.38-5.82); RED CELL DISTRIBUTION WIDTH 15.4 % (9.4-14.8)
[2019-08-14 00:12] VITALS: BP 140/52
[2019-08-14 00:21] LABS: ALANINE AMINOTRANSFERASE 17 U/L (12-78); ALBUMIN 2.6 g/dL (3.4-5.0); ANION GAP 8 mmol/L (5-15); CALCIUM 8.3 mg/dL (8.5-10.1); CHLORIDE 97 mmol/L (98-107); CREATININE 0.79 mg/dL (0.7-1.3)
[2019-08-14 00:25] LABS: ALKALINE PHOSPHATASE 172 U/L (45-117); BILIRUBIN,TOTAL 0.6 mg/dL (0.2-1.0); TOTAL PROTEIN 7.7 g/dL (6.4-8.2)
[2019-08-14 01:00] LABS: BASOPHILS # (AUTO) 0.11 x10^3/uL (0-0.1); BASOPHILS % (AUTO) 1 % (0-1); EOSINOPHILS # (AUTO) 0.29 x10^3/uL (0-0.4); EOSINOPHILS % (AUTO) 2 % (1-7); LYMPHOCYTES % (AUTO) 15 % (22-44); MD SCAN; MONOCYTES % (AUTO) 14 % (2-9); NEUTROPHILS % (AUTO) 69 % (42-75)
[2019-08-14] MEDS ORDERED: FUROSEMIDE 40 MG TABLET ONE (01:52)
[2019-08-14] MEDS ORDERED: FUROSEMIDE 40 MG TABLET PO SCH (02:00)
[2019-08-14] MEDS ORDERED: ACETAMINOPHEN 500 MG TABLET ONE (02:16)
[2019-08-14] MEDS ORDERED: ACETAMINOPHEN 500 MG TABLET PO ONE (02:30)
[2019-08-14] MEDS ORDERED: FUROSEMIDE 40 MG TABLET PO ONE (02:30)
--- NOTE | 2019-08-14 03:21 | NUR ---
Received report and assumed patient care. Patient was administered analgesic per provider order. Patient was given half an hour to allow medication to take effect. Returned to bedside with emergency department technican to wrap legs. Wounds wrapped in xeraform, covered in abd pads for weeping and wrapped in alireza bandages. Patient then reported he needed to use the bathroom. Patient was provided with a bedp and awaiting call to let RN know when he is finished.
== END 2019-08-14 04:50 | disposition home or self-care (01) ==
LOC: ED 08-14 00:05
DX: R60.0 Localized edema (principal); I87.2 Venous insufficiency (chronic) (peripheral); L98.499 Non-pressure chronic ulcer of skin of other sites with unspecified severity; I10 Essential (primary) hypertension; Z90.49 Acquired absence of other specified parts of digestive tract; Z87.891 Personal history of nicotine dependence
CPT/HCPCS: 36415; 71045; 80053; 83605; 83880; 84145; 85025; 87040; 87077; 87186; 93970; 99284

== ENCOUNTER 2019-08-16 17:14 | Emergency (ER) | payer MEDICARE ==
[~2019-08-16] VITALS: Ht 170.2 cm; Wt 75.0 kg
--- NOTE | 2019-08-16 17:24 | NUR ---
BIB [facility] C/O LE PAIN, PT WITH WOUNDS TO BLE. PT STATES WAS HERE YESTERDAY AND TREATED FOR LE WOUNDS. PT APPEARS UNKEPT, DRESSINGS RAGGED ON BLE. PT ALSO WITH SEVERE SCROTAL SWELLING. PT DENIES PAIN IN SCROTAL AREA. NO C/O CP/SOB.
--- NOTE | 2019-08-16 18:40 | NUR ---
BANDAGES UNWRAPPED, PT GIVEN BLANKET PER REQUEST. VSS, NAD NOTED
[2019-08-16 18:52] VITALS: BP 121/73
--- NOTE | 2019-08-16 19:58 | NUR ---
PT rebandaged w/ bacitracin. Pt informed of being d/c and stated did not want to wait for d/c instructions. Aware of needing to come back in 72 hours for wound recheck and verbally agrees.
[2019-08-17] MEDS ORDERED: BACITRACIN OINT 500U/GM, 15 GM TP SCH (09:00)
== END 2019-08-16 20:10 | disposition home or self-care (01) ==
LOC: ED 18:37
DX: L97.929 Non-pressure chronic ulcer of unspecified part of left lower leg with unspecified severity (principal); L97.919 Non-pressure chronic ulcer of unspecified part of right lower leg with unspecified severity; R60.0 Localized edema; I10 Essential (primary) hypertension; Z72.9 Problem related to lifestyle, unspecified; Z90.49 Acquired absence of other specified parts of digestive tract; Z75.9 Unspecified problem related to medical facilities and other health care; Z91.14 Patient's other noncompliance with medication regimen; Z63.8 Other specified problems related to primary support group
CPT/HCPCS: 99283

== ENCOUNTER 2019-08-20 17:23 | Inpatient (IN) | payer MEDICARE ==
[~2019-08-20] VITALS: Ht 172.7 cm; Wt 80.3 kg
[2019-08-20 18:22] LABS: BASOPHILS # (AUTO) 0.12 x10^3/uL (0-0.1); BASOPHILS % (AUTO) 1 % (0-1); EOSINOPHILS % (AUTO) 3 % (1-7); LYMPHOCYTES # (AUTO) 2.26 x10^3/uL (1-3.4); LYMPHOCYTES % (AUTO) 18 % (22-44); MD NO; MEAN CORPUSCULAR HEMOGLOBIN 30.1 pg (27.5-34.5); MEAN CORPUSCULAR HGB CONC 32.3 g/dL (33.2-36.2); MEAN CORPUSCULAR VOLUME 93.3 fL (81-97); MEAN PLATELET VOLUME 6.6 fL (7.4-10.4); MONOCYTES % (AUTO) 10 % (2-9); NEUTROPHILS # (AUTO) 8.74 x10^3/uL (1.8-6.8); NEUTROPHILS % (AUTO) 69 % (42-75); PLATELET COUNT 363 x10^3/uL (130-400); RED BLOOD COUNT 4.42 x10^6/uL (4.38-5.82); RED CELL DISTRIBUTION WIDTH 14.9 % (9.4-14.8)
[2019-08-20] MEDS ORDERED: SODIUM CHLORIDE FLUSH 10ML SYR IVF ONE (18:30)
[2019-08-20] MEDS ORDERED: LORazepam 2 MG/ML, 1ML IV ONE (18:30)
[2019-08-20] MEDS ORDERED: PIPERACILLIN/TAZO/PMX 3.375GM 50 ML IVPB ONE (18:30)
[2019-08-20 18:33] LABS: ALANINE AMINOTRANSFERASE 17 U/L (12-78); ALBUMIN 2.4 g/dL (3.4-5.0); ANION GAP 7 mmol/L (5-15); CHLORIDE 102 mmol/L (98-107)
[2019-08-20 18:36] LABS: ALKALINE PHOSPHATASE 173 U/L (45-117); BILIRUBIN,TOTAL 0.2 mg/dL (0.2-1.0); CREATININE 0.71 mg/dL (0.7-1.3); TOTAL PROTEIN 7.1 g/dL (6.4-8.2)
[2019-08-20 18:47] LABS: MICROSCOPIC AUTO
[2019-08-20 18:53] LABS: CULTURE INDICATED? YES
[2019-08-20] MEDS ORDERED: SODIUM CHLORIDE 0.9%, 500ML IVBOLUS ONE (19:00)
[2019-08-20] MEDS ORDERED: LORazepam 2 MG/ML, 1ML ONE (19:11)
[2019-08-20] MEDS ORDERED: PIPERACILLIN/TAZO/PMX 3.375GM 50 ML ONE (19:11)
--- NOTE | 2019-08-20 19:25 | NUR ---
pt medicated per mar at this time. Dr. Jones at for pt history and assessment. Pt vss at this time.
[2019-08-20] MEDS ORDERED: hydrALAzine 20 MG/ML, 1ML IVPush PRN (20:00)
[2019-08-20] MEDS ORDERED: ONDANSETRON 2MG/ML, 2ML IVPush PRN (20:00)
[2019-08-20] MEDS ORDERED: LORazepam 1MG TABLET PO PRN (20:00)
[2019-08-20] MEDS ORDERED: GABAPENTIN 300 MG CAPSULE PO PRN (20:00)
--- NOTE | 2019-08-20 20:06 | NUR ---
pt d/c his own iv. pt instructed not to get out of bed again, and to not interfere with poc. pt unable to verbalize understanding due to acute etoh intoxication and uncooperative behavior.
[2019-08-20 21:06] LABS: C-REACTIVE PROTEIN, QUANT 1.7 mg/dL (0.02-0.49)
[2019-08-20 21:49] LABS: HCT (SEDRATE) 41.3 % (39.2-51.8)
[2019-08-20] MEDS: ENOXAPARIN 40 MG/0.4 ML SQ SCH (22:50)
[2019-08-20 22:58] VITALS: BP 149/75
[2019-08-21] MEDS: AMPICILLIN/SULBACTAM 3 GM in SODIUM CHLORIDE 0.9% 100 ML IV SCH ×5 (00:21→17:41)
[2019-08-21 02:10] VITALS: BP 128/72
[2019-08-21 06:04] LABS: BASOPHILS # (AUTO) 0.07 x10^3/uL (0-0.1); BASOPHILS % (AUTO) 1 % (0-1); EOSINOPHILS # (AUTO) 0.26 x10^3/uL (0-0.4); EOSINOPHILS % (AUTO) 2 % (1-7); LYMPHOCYTES # (AUTO) 1.64 x10^3/uL (1-3.4); LYMPHOCYTES % (AUTO) 12 % (22-44); MD NO; MEAN CORPUSCULAR HEMOGLOBIN 30.3 pg (27.5-34.5); MEAN CORPUSCULAR HGB CONC 32.6 g/dL (33.2-36.2); MEAN CORPUSCULAR VOLUME 92.8 fL (81-97); MEAN PLATELET VOLUME 7.2 fL (7.4-10.4); MONOCYTES # (AUTO) 1.21 x10^3/uL (0.2-0.8); MONOCYTES % (AUTO) 9 % (2-9); NEUTROPHILS # (AUTO) 10.53 x10^3/uL (1.8-6.8); NEUTROPHILS % (AUTO) 77 % (42-75); PLATELET COUNT 323 x10^3/uL (130-400); RED BLOOD COUNT 4.24 x10^6/uL (4.38-5.82); RED CELL DISTRIBUTION WIDTH 15.6 % (9.4-14.8)
[2019-08-21 06:14] LABS: ANION GAP 6 mmol/L (5-15); CALCIUM 7.6 mg/dL (8.5-10.1); CHLORIDE 106 mmol/L (98-107); CHOLESTEROL, TOTAL 122 mg/dL (140-239); CREATININE 0.72 mg/dL (0.7-1.3); TRIGLYCERIDES 98 mg/dL (50-200); VLDL CHOLESTEROL 20 mg/dL (0-25)
[2019-08-21 06:16] LABS: CHOL/HDL RATIO 2.1; HDL CHOL % 48 % (26-37); HDL CHOLESTEROL (DIRECT) 58 mg/dL (40-60); LDL CHOLESTEROL,CALCULATED 44 mg/dL (54-169); LDL/HDL RATIO 0.8 (0.5-3.0)
[2019-08-21 06:55] VITALS: BP 125/77
[2019-08-21] MEDS ORDERED: VANCOMYCIN PER PHARMACY MC PRN (08:00)
[2019-08-21] MEDS ORDERED: THIAMINE 200 MG in SODIUM CHLORIDE 0.9% 50 ML IV SCH (09:00)
[2019-08-21] MEDS ORDERED: PHARMACOKINETIC MONITORING MC PRN (09:00)
[2019-08-21] MEDS ORDERED: PHARMACOKINETIC CONSULTATION MC ONE (09:00)
[2019-08-21] MEDS: VANCOMYCIN 1,500 MG in SODIUM CHLORIDE 0.9% 250 ML IV SCH (09:09)
[2019-08-21] MEDS: MULTIVITAMIN 1 TABLET PO SCH (09:56)
[2019-08-21] MEDS: THIAMINE 100MG TABLET PO SCH ×2 (09:56→20:20)
[2019-08-21] MEDS: FOLIC ACID 1 MG TABLET PO SCH (09:56)
[2019-08-21 12:07] VITALS: BP 138/64
[2019-08-21] MEDS: morphine SULFATE 10 MG/ML, 1ML IVPush PRN ×2 (14:46→19:42)
[2019-08-21] MEDS: FUROSEMIDE 20 MG TABLET PO SCH (16:19)
[2019-08-21] MEDS: ACETAMINOPHEN 325 MG TABLET PO PRN (16:19)
[2019-08-21 18:28] VITALS: BP 138/79
[2019-08-21] MEDS: ENOXAPARIN 40 MG/0.4 ML SQ SCH (20:20)
[2019-08-22] MEDS: AMPICILLIN/SULBACTAM 3 GM in SODIUM CHLORIDE 0.9% 100 ML IV SCH ×5 (00:25→20:41)
[2019-08-22] MEDS: ACETAMINOPHEN 325 MG TABLET PO PRN (01:41)
[2019-08-22 01:54] VITALS: BP 126/74
[2019-08-22 05:52] LABS: BASOPHILS # (AUTO) 0.07 x10^3/uL (0-0.1); BASOPHILS % (AUTO) 1 % (0-1); EOSINOPHILS % (AUTO) 5 % (1-7); LYMPHOCYTES # (AUTO) 1.23 x10^3/uL (1-3.4); LYMPHOCYTES % (AUTO) 13 % (22-44); MD NO; MEAN CORPUSCULAR HEMOGLOBIN 30.8 pg (27.5-34.5); MEAN CORPUSCULAR HGB CONC 32.6 g/dL (33.2-36.2); MEAN CORPUSCULAR VOLUME 94.4 fL (81-97); MEAN PLATELET VOLUME 7.3 fL (7.4-10.4); MONOCYTES # (AUTO) 0.82 x10^3/uL (0.2-0.8); MONOCYTES % (AUTO) 8 % (2-9); NEUTROPHILS # (AUTO) 7.17 x10^3/uL (1.8-6.8); NEUTROPHILS % (AUTO) 73 % (42-75); PLATELET COUNT 199 x10^3/uL (130-400); RED BLOOD COUNT 4.12 x10^6/uL (4.38-5.82); RED CELL DISTRIBUTION WIDTH 15.5 % (9.4-14.8)
[2019-08-22 06:01] LABS: ANION GAP 6 mmol/L (5-15); CALCIUM 7.7 mg/dL (8.5-10.1); CHLORIDE 105 mmol/L (98-107); CREATININE 0.56 mg/dL (0.7-1.3)
[2019-08-22 06:02] LABS: ALANINE AMINOTRANSFERASE 12 U/L (12-78)
[2019-08-22 06:04] LABS: ALKALINE PHOSPHATASE 114 U/L (45-117); BILIRUBIN,TOTAL 0.6 mg/dL (0.2-1.0); TOTAL PROTEIN 6.1 g/dL (6.4-8.2)
[2019-08-22 06:38] VITALS: BP 125/66
[2019-08-22] MEDS: FUROSEMIDE 20 MG TABLET PO SCH ×2 (08:53→16:47)
[2019-08-22] MEDS: THIAMINE 100MG TABLET PO SCH ×2 (09:29→20:41)
[2019-08-22] MEDS: morphine SULFATE 10 MG/ML, 1ML IVPush PRN (09:29)
[2019-08-22] MEDS: FOLIC ACID 1 MG TABLET PO SCH (09:29)
[2019-08-22] MEDS: MULTIVITAMIN 1 TABLET PO SCH (09:29)
[2019-08-22] MEDS: VANCOMYCIN 1,500 MG in SODIUM CHLORIDE 0.9% 250 ML IV SCH ×2 (10:48→12:20)
[2019-08-22 15:51] VITALS: BP 126/74
[2019-08-22 19:42] VITALS: BP 147/74
[2019-08-22] MEDS: ENOXAPARIN 40 MG/0.4 ML SQ SCH (20:41)
[2019-08-23 02:11] VITALS: BP 156/84
[2019-08-23 02:30] VITALS: BP 144/74
[2019-08-23] MEDS: AMPICILLIN/SULBACTAM 3 GM in SODIUM CHLORIDE 0.9% 100 ML IV SCH ×4 (02:39→23:50)
[2019-08-23] MEDS: ACETAMINOPHEN 325 MG TABLET PO PRN (03:52)
[2019-08-23 06:43] VITALS: BP 131/86
[2019-08-23] MEDS: MULTIVITAMIN 1 TABLET PO SCH (07:52)
[2019-08-23] MEDS: THIAMINE 100MG TABLET PO SCH ×2 (07:52→20:48)
[2019-08-23] MEDS: FUROSEMIDE 20 MG TABLET PO SCH ×2 (07:52→17:22)
[2019-08-23] MEDS: FOLIC ACID 1 MG TABLET PO SCH (07:52)
[2019-08-23] MEDS: VANCOMYCIN 1,500 MG in SODIUM CHLORIDE 0.9% 250 ML IV SCH (09:29)
[2019-08-23] MEDS: morphine SULFATE 10 MG/ML, 1ML IVPush PRN ×3 (09:30→20:49)
[2019-08-23] MEDS: GABAPENTIN 100 MG CAPSULE PO SCH ×3 (10:34→20:48)
[2019-08-23 12:43] VITALS: BP 134/77
[2019-08-23 19:06] VITALS: BP 123/75
[2019-08-23] MEDS: ENOXAPARIN 40 MG/0.4 ML SQ SCH (20:47)
[2019-08-24 00:26] VITALS: BP 119/80
[2019-08-24] MEDS: OXYcodone/APAP 5/325MG TABLET PO PRN ×2 (03:45→19:17)
[2019-08-24] MEDS: AMPICILLIN/SULBACTAM 3 GM in SODIUM CHLORIDE 0.9% 100 ML IV SCH ×3 (05:00→17:37)
[2019-08-24 07:34] VITALS: BP 139/91
[2019-08-24] MEDS: FUROSEMIDE 20 MG TABLET PO SCH ×2 (09:29→16:35)
[2019-08-24] MEDS: VANCOMYCIN 1,500 MG in SODIUM CHLORIDE 0.9% 250 ML IV SCH (09:29)
[2019-08-24] MEDS: GABAPENTIN 100 MG CAPSULE PO SCH ×3 (09:29→19:16)
[2019-08-24] MEDS: MULTIVITAMIN 1 TABLET PO SCH (09:29)
[2019-08-24] MEDS: THIAMINE 100MG TABLET PO SCH ×2 (09:29→19:17)
[2019-08-24] MEDS: FOLIC ACID 1 MG TABLET PO SCH (09:29)
[2019-08-24] MEDS: morphine SULFATE 10 MG/ML, 1ML IVPush PRN ×3 (09:30→19:48)
[2019-08-24 14:30] VITALS: BP 146/63
[2019-08-24] MEDS: ENOXAPARIN 40 MG/0.4 ML SQ SCH (19:15)
[2019-08-24] MEDS ORDERED: DAPTOMYCIN 320 MG in SODIUM CHLORIDE 0.9% 100 ML IV SCH (19:30)
[2019-08-24 20:28] VITALS: BP 135/80
[2019-08-25 00:19] VITALS: BP 139/79
[2019-08-25] MEDS: AMPICILLIN/SULBACTAM 3 GM in SODIUM CHLORIDE 0.9% 100 ML IV SCH ×2 (01:04→06:22)
[2019-08-25] MEDS: morphine SULFATE 10 MG/ML, 1ML IVPush PRN ×2 (02:22→05:34)
[2019-08-25] MEDS ORDERED: VANCOMYCIN 1,500 MG in SODIUM CHLORIDE 0.9% 250 ML IV SCH (03:00)
[2019-08-25] MEDS: OXYcodone/APAP 5/325MG TABLET PO PRN ×2 (05:08→11:54)
[2019-08-25] MEDS: ACETAMINOPHEN 325 MG TABLET PO PRN (06:20)
[2019-08-25 07:30] VITALS: BP 110/57
[2019-08-25] MEDS ORDERED: GABA-826 PO (08:48)
[2019-08-25] MEDS ORDERED: DOXY100C2 PO (08:48)
[2019-08-25] MEDS ORDERED: CEPH-376 PO (08:48)
[2019-08-25] MEDS ORDERED: CEPHALEXIN 500 MG CAPSULE PO SCH (09:00)
[2019-08-25] MEDS ORDERED: DOXYCYCLINE 100MG CAP PO SCH (09:00)
[2019-08-25] MEDS: GABAPENTIN 100 MG CAPSULE PO SCH (09:53)
[2019-08-25] MEDS: FUROSEMIDE 20 MG TABLET PO SCH (09:53)
[2019-08-25] MEDS: FOLIC ACID 1 MG TABLET PO SCH (09:53)
[2019-08-25] MEDS: MULTIVITAMIN 1 TABLET PO SCH (09:53)
[2019-08-25] MEDS: THIAMINE 100MG TABLET PO SCH (09:53)
== END 2019-08-25 14:59 | DRG 872 ==
LOC: ED 18:37 → EDIP 19:03 → 3N 21:58
PROVIDERS: ADMIT Family Medicine; ATTEND Internal Medicine
DX: A41.9 Sepsis, unspecified organism (principal); L03.116 Cellulitis of left lower limb; L03.115 Cellulitis of right lower limb; E44.0 Moderate protein-calorie malnutrition; F10.229 Alcohol dependence with intoxication, unspecified; G60.8 Other hereditary and idiopathic neuropathies; I10 Essential (primary) hypertension; I73.9 Peripheral vascular disease, unspecified; K40.20 Bilateral inguinal hernia, without obstruction or gangrene, not specified as recurrent; I87.2 Venous insufficiency (chronic) (peripheral); I87.8 Other specified disorders of veins; K40.90 Unilateral inguinal hernia, without obstruction or gangrene, not specified as recurrent; N49.2 Inflammatory disorders of scrotum; Z59.0 Homelessness; Z87.891 Personal history of nicotine dependence; Z90.49 Acquired absence of other specified parts of digestive tract; Z91.14 Patient's other noncompliance with medication regimen; Z82.5 Family history of asthma and other chronic lower respiratory diseases; Z88.5 Allergy status to narcotic agent; Z68.27 Body mass index [BMI] 27.0-27.9, adult
CPT/HCPCS: 36415; 80048; 80053; 80061; 80202; 80307; 81001; 82550; 83605; 83735; 84100; 84145; 85025; 85651; 86140; 87040; 87086; 93306; 93922; 93925; 96374; 96375; G0378; J0295; J0878; J1650; J2543; J3370; J2060; J2270; J7040; J7050

== ENCOUNTER 2020-03-14 05:51 | Inpatient (IN) | payer MEDICARE ==
[~2020-03-14] VITALS: Ht 172.7 cm; Wt 76.0 kg
[~2020-03-14 05:51] MED LIST changes: +CEPH-376 PO; +DOXY100C2 PO; +GABA-826 PO
--- NOTE | 2020-03-14 05:58 | NUR ---
TASK RN: PT DENIS JACOBSON FROM [facility] FOR C/O WEAKNESS, N/V/D X3 DAYS, TONIGHT UNABLE TO AMBULATE RELATED TO ETOH. ALSO C/O HERNIA PAIN X10 YEARS -> WORSE TODAY. PT STATES 9/10 PAIN RELATED TO FALLING DOWN ON KNEES AND HERNIA PAIN. PT ABLE TO MOVE BOTH LOWER EXTREMITIES. [facility] REPORTS PT HAD A BAD COUGH ENROUTE. PT STATES HE IS WEAK. PT PLACED ON SPO2/BP/ECG MONITORING. JESSICA ESPINOZA MD AT FOR EVAL AND POC.
--- NOTE | 2020-03-14 06:00 | NUR ---
BS REPORT TO CONSTANTIN BARNES
--- NOTE | 2020-03-14 06:05 | NUR ---
PT CHANGED INTO GOWN, CLOTHING AND SHOES IN PT BELONGINGS BAG. FEET NOTABLY COVERED IN FECES, WASHED FEET OFF AND PT NOW RESTING COMFORTABL IN [facility]
[2020-03-14 06:38] LABS: MEAN CORPUSCULAR HEMOGLOBIN 31.4 pg (27.5-34.5); MEAN CORPUSCULAR HGB CONC 33.3 g/dL (33.2-36.2); MEAN CORPUSCULAR VOLUME 94.3 fL (81-97); MEAN PLATELET VOLUME 7.1 fL (7.4-10.4); PLATELET COUNT 210 x10^3/uL (130-400); RED BLOOD COUNT 4.37 x10^6/uL (4.38-5.82); RED CELL DISTRIBUTION WIDTH 17.2 % (9.4-14.8)
[2020-03-14 06:51] LABS: ALANINE AMINOTRANSFERASE 18 U/L (12-78); ALBUMIN 2.9 g/dL (3.4-5.0); ANION GAP 7 mmol/L (5-15); CALCIUM 7.9 mg/dL (8.5-10.1); CHLORIDE 104 mmol/L (98-107); CREATININE 0.72 mg/dL (0.7-1.3)
[2020-03-14 06:54] LABS: ALKALINE PHOSPHATASE 149 U/L (45-117); BILIRUBIN,TOTAL 2.2 mg/dL (0.2-1.0)
--- NOTE | 2020-03-14 06:57 | NUR ---
i am assumimng care of this pt from graciela (rn) at this time. sbar report was exchanged at the bedside.
[2020-03-14] MEDS ORDERED: ACETAMINOPHEN 325 MG TABLET PO ONE (07:00)
[2020-03-14] MEDS ORDERED: ACETAMINOPHEN 325 MG TABLET ONE (07:05)
[2020-03-14 07:27] LABS: MD YES
[2020-03-14 07:29] LABS: BAND#(MANUAL) 1.05 x10^3/uL; BANDS%(MANUAL) 9 % (0-7); LYMPH#(MANUAL) 0.12 x10^3/uL (1-3.4); LYMPHS% (MANUAL) 1 % (22-44); MONOS#(MANUAL) 0.47 x10^3/uL (0.3-2.7); MONOS% (MANUAL) 4 % (2-9); SEG#(MANUAL) 10.06 x10^3/uL (1.8-6.8); SEGS% (MANUAL) 86 % (42-75)
[2020-03-14 07:30] LABS: <PLATELET ESTIMATE> ADEQUATE; <PLT MORPHOLOGY> NORMAL PLT MORPH; <RBC MORPHOLOGY> NORMAL
--- NOTE | 2020-03-14 07:33 | NUR ---
assisted to bedside commode for stool/urine sample/ unable to stand on his own. urine sample provided, and walked to the lab for analysis.
[2020-03-14 07:58] LABS: MICROSCOPIC INDICATED
--- NOTE | 2020-03-14 08:20 | NUR ---
PT MIRACULOUSLY STOOD INDEPENDENTLY AND WALKED TO THE BEDSIDE COMMODE. NO COMPLAINTS OF WEAKNESS. UNABLE TO PROVIDE STOOL SAMPLE AT THIS TIME.
[2020-03-14] MEDS ORDERED: CEFTRIAXONE PMX 1GM/50ML 50 ML IV ONE (08:30)
[2020-03-14] MEDS ORDERED: NS + 20MEQ KCL 1,000 ML IV SCH (09:17)
[2020-03-14] MEDS ORDERED: ONDANSETRON ODT 4 MG PO PRN (09:30)
[2020-03-14] MEDS ORDERED: DOCUSATE 100 MG CAPSULE PO PRN (09:30)
[2020-03-14] MEDS ORDERED: LORazepam 1MG TABLET PO PRN ×3 (09:30)
[2020-03-14] MEDS ORDERED: POLYETHYLENE GLYCOL 17 GM PACKET PO PRN (09:30)
[2020-03-14] MEDS ORDERED: ONDANSETRON 2MG/ML, 2ML IVPush PRN (09:30)
[2020-03-14] MEDS ORDERED: CEFTRIAXONE PMX 1GM/50ML 50 ML IV SCH (09:30)
--- NOTE | 2020-03-14 10:16 | NUR ---
PT IS RESTING ON [facility] WAITING AN A ROOM ASSIGNMENT FOR ADMISSION. EDUCATION PROVIDEDE IN REGARD TO AMBULATION AND CALL LIGHTS. HE IS AGREEABLE.
[2020-03-14] MEDS ORDERED: THIAMINE 100MG TABLET ONE (10:24)
[2020-03-14] MEDS: MULTIVITAMINS/MINERALS TABLET PO SCH (10:47)
[2020-03-14] MEDS: FOLIC ACID 1 MG TABLET PO SCH (10:47)
[2020-03-14] MEDS: THIAMINE 100MG TABLET PO SCH (10:47)
--- NOTE | 2020-03-14 10:56 | NUR ---
PT ASSISTED HISSELF TO THE BEDSIDE COMMODE. STOOL SAMPLE PROVIDED, AND WALKED TO THE LAB FOR ANALYSIS.
--- NOTE | 2020-03-14 11:35 | NUR ---
RECEIVED REPORT FROM VENU BARNES. ASSUMING CARE AT THIS TIME.
--- NOTE | 2020-03-14 11:36 | NUR ---
YUSRA (RN) IS ASSUMING CARE OF THIS PT AT THIS TIME. SBAR WAS EXCHANGED AT THE BEDSIDE.
[2020-03-14 12:32] LABS: CLOSTRIDIUM DIFFICILE ANTIGEN NEGATIVE; CLOSTRIDIUM DIFFICILE TOXIN NEGATIVE (Negative)
--- NOTE | 2020-03-14 14:06 | NUR ---
BREAK RN: PT RESTING ON [facility]. NADN. PT UP TO BEDSIDE COMMODE W/ STANDBY ASSIST. PT BACK TO [facility] AND REPOSITIONED FOR COMFORT.
--- NOTE | 2020-03-14 14:39 | NUR ---
REPORT GIVEN TO MERCEDES BARNES.
[2020-03-14 15:53] VITALS: BP 154/88
[2020-03-14 18:48] VITALS: BP 144/84
[2020-03-14] MEDS: LORazepam 0.5MG TABLET PO PRN (22:24)
[2020-03-14] MEDS: ACETAMINOPHEN 325 MG TABLET PO PRN (22:24)
[2020-03-14] MEDS ORDERED: CALCIUM CARBONATE 500 MG TAB.CHEW PO PRN (23:30)
[2020-03-15 00:05] VITALS: BP 146/89
[2020-03-15] MEDS: LORazepam 1MG TABLET PO PRN ×3 (03:51→14:47)
[2020-03-15 05:49] LABS: BASOPHILS # (AUTO) 0.02 x10^3/uL (0-0.1); BASOPHILS % (AUTO) 0 % (0-1); EOSINOPHILS # (AUTO) 0.08 x10^3/uL (0-0.4); EOSINOPHILS % (AUTO) 1 % (1-7); LYMPHOCYTES # (AUTO) 0.75 x10^3/uL (1-3.4); LYMPHOCYTES % (AUTO) 7 % (22-44); MD NO; MEAN CORPUSCULAR HEMOGLOBIN 31.4 pg (27.5-34.5); MEAN CORPUSCULAR HGB CONC 32.7 g/dL (33.2-36.2); MEAN CORPUSCULAR VOLUME 96.1 fL (81-97); MEAN PLATELET VOLUME 7.6 fL (7.4-10.4); MONOCYTES # (AUTO) 0.97 x10^3/uL (0.2-0.8); MONOCYTES % (AUTO) 9 % (2-9); NEUTROPHILS # (AUTO) 9.44 x10^3/uL (1.8-6.8); NEUTROPHILS % (AUTO) 84 % (42-75); PLATELET COUNT 203 x10^3/uL (130-400); RED BLOOD COUNT 4.38 x10^6/uL (4.38-5.82); RED CELL DISTRIBUTION WIDTH 16.8 % (9.4-14.8)
[2020-03-15 06:01] LABS: CHLORIDE 104 mmol/L (98-107)
[2020-03-15 06:12] LABS: ALANINE AMINOTRANSFERASE 13 U/L (12-78); ALBUMIN 2.4 g/dL (3.4-5.0); ALKALINE PHOSPHATASE 119 U/L (45-117); ANION GAP 6 mmol/L (5-15); BILIRUBIN,TOTAL 1.6 mg/dL (0.2-1.0); CALCIUM 7.5 mg/dL (8.5-10.1); TOTAL PROTEIN 6.3 g/dL (6.4-8.2)
[2020-03-15 06:24] VITALS: BP 130/79
[2020-03-15] MEDS: MULTIVITAMINS/MINERALS TABLET PO SCH (09:34)
[2020-03-15] MEDS: FOLIC ACID 1 MG TABLET PO SCH (09:34)
[2020-03-15] MEDS: CEFTRIAXONE PMX 2GM/50ML 50 ML IV SCH (09:34)
[2020-03-15] MEDS: POTASSIUM CHLORIDE 20 MEQ TAB.ER.PRT PO SCH ×2 (09:34→17:38)
[2020-03-15] MEDS: THIAMINE 100MG TABLET PO SCH (09:34)
[2020-03-15 13:24] VITALS: BP 132/77
[2020-03-15 19:13] VITALS: BP 176/117
[2020-03-15] MEDS: ACETAMINOPHEN 325 MG TABLET PO PRN (19:25)
[2020-03-16 00:59] VITALS: BP 144/92
[2020-03-16 06:41] LABS: BASOPHILS # (AUTO) 0.04 x10^3/uL (0-0.1); BASOPHILS % (AUTO) 0 % (0-1); EOSINOPHILS # (AUTO) 0.09 x10^3/uL (0-0.4); EOSINOPHILS % (AUTO) 1 % (1-7); LYMPHOCYTES # (AUTO) 0.83 x10^3/uL (1-3.4); LYMPHOCYTES % (AUTO) 8 % (22-44); MD NO; MEAN CORPUSCULAR HGB CONC 31.7 g/dL (33.2-36.2); MEAN CORPUSCULAR VOLUME 97.6 fL (81-97); MEAN PLATELET VOLUME 7.6 fL (7.4-10.4); MONOCYTES % (AUTO) 11 % (2-9); NEUTROPHILS # (AUTO) 8.42 x10^3/uL (1.8-6.8); NEUTROPHILS % (AUTO) 80 % (42-75); PLATELET COUNT 187 x10^3/uL (130-400); RED BLOOD COUNT 4.45 x10^6/uL (4.38-5.82); RED CELL DISTRIBUTION WIDTH 16.9 % (9.4-14.8)
[2020-03-16 07:03] LABS: ALANINE AMINOTRANSFERASE 15 U/L (12-78); ALBUMIN 2.5 g/dL (3.4-5.0); ANION GAP 7 mmol/L (5-15); CALCIUM 7.6 mg/dL (8.5-10.1); CHLORIDE 108 mmol/L (98-107); CREATININE 0.48 mg/dL (0.7-1.3)
[2020-03-16 07:04] VITALS: BP 151/91
[2020-03-16 07:08] LABS: HCT (SEDRATE) 41.4 % (39.2-51.8)
[2020-03-16 07:10] LABS: ALKALINE PHOSPHATASE 117 U/L (45-117); BILIRUBIN,TOTAL 1.1 mg/dL (0.2-1.0); TOTAL PROTEIN 6.7 g/dL (6.4-8.2)
[2020-03-16] MEDS: MULTIVITAMINS/MINERALS TABLET PO SCH (08:26)
[2020-03-16] MEDS: THIAMINE 100MG TABLET PO SCH (08:28)
[2020-03-16] MEDS: FOLIC ACID 1 MG TABLET PO SCH (08:28)
[2020-03-16] MEDS: POTASSIUM CHLORIDE 20 MEQ TAB.ER.PRT PO SCH ×2 (08:28→19:32)
[2020-03-16] MEDS: CEFTRIAXONE PMX 2GM/50ML 50 ML IV SCH (10:56)
[2020-03-16] MEDS: ACETAMINOPHEN 325 MG TABLET PO PRN ×2 (12:31→19:33)
[2020-03-16] MEDS: LORazepam 0.5MG TABLET PO PRN ×2 (12:31→22:19)
[2020-03-16 13:25] VITALS: BP 119/70
[2020-03-16 19:44] VITALS: BP 157/105
[2020-03-16 22:02] VITALS: BP 156/102
[2020-03-16] MEDS: CALCIUM CARBONATE 500 MG TAB.CHEW PO PRN (22:20)
[2020-03-17 01:27] VITALS: BP 132/75
[2020-03-17] MEDS: ACETAMINOPHEN 500 MG TABLET PO PRN (04:57)
[2020-03-17] MEDS: CALCIUM CARBONATE 500 MG TAB.CHEW PO PRN (05:16)
[2020-03-17 06:06] LABS: MEAN CORPUSCULAR HGB CONC 31.9 g/dL (33.2-36.2); MEAN CORPUSCULAR VOLUME 97.2 fL (81-97); MEAN PLATELET VOLUME 7.4 fL (7.4-10.4); PLATELET COUNT 204 x10^3/uL (130-400); RED BLOOD COUNT 4.12 x10^6/uL (4.38-5.82); RED CELL DISTRIBUTION WIDTH 17.3 % (9.4-14.8)
[2020-03-17 06:14] LABS: ALANINE AMINOTRANSFERASE 13 U/L (12-78); ALBUMIN 2.3 g/dL (3.4-5.0); ANION GAP 3 mmol/L (5-15); CALCIUM 7.7 mg/dL (8.5-10.1); CHLORIDE 108 mmol/L (98-107); CREATININE 0.48 mg/dL (0.7-1.3)
[2020-03-17 06:21] LABS: ALKALINE PHOSPHATASE 116 U/L (45-117); BILIRUBIN,TOTAL 0.6 mg/dL (0.2-1.0); TOTAL PROTEIN 6.5 g/dL (6.4-8.2)
[2020-03-17 06:34] LABS: BASOPHILS # (AUTO) 0.03 x10^3/uL (0-0.1); BASOPHILS % (AUTO) 0 % (0-1); EOSINOPHILS # (AUTO) 0.19 x10^3/uL (0-0.4); EOSINOPHILS % (AUTO) 2 % (1-7); LYMPHOCYTES % (AUTO) 8 % (22-44); MD SCAN; MONOCYTES # (AUTO) 1.06 x10^3/uL (0.2-0.8); MONOCYTES % (AUTO) 11 % (2-9); NEUTROPHILS # (AUTO) 7.89 x10^3/uL (1.8-6.8); NEUTROPHILS % (AUTO) 79 % (42-75)
[2020-03-17 06:36] VITALS: BP 164/80
[2020-03-17] MEDS: THIAMINE 100MG TABLET PO SCH (08:27)
[2020-03-17] MEDS: MULTIVITAMINS/MINERALS TABLET PO SCH (08:27)
[2020-03-17] MEDS: FOLIC ACID 1 MG TABLET PO SCH (08:27)
[2020-03-17] MEDS ORDERED: OMNIPAQUE 350 MG/ML, 150 ML BOTTLE ONE (08:57)
[2020-03-17] MEDS: CEFTRIAXONE PMX 2GM/50ML 50 ML IV SCH (10:35)
[2020-03-17 13:39] VITALS: BP 168/71
[2020-03-17 19:27] VITALS: BP 160/96
[2020-03-18 01:22] VITALS: BP 146/89
[2020-03-18 06:23] VITALS: BP 153/90
[2020-03-18] MEDS: MULTIVITAMINS/MINERALS TABLET PO SCH (08:34)
[2020-03-18] MEDS: THIAMINE 100MG TABLET PO SCH (08:34)
[2020-03-18] MEDS: FOLIC ACID 1 MG TABLET PO SCH (08:34)
[2020-03-18] MEDS: CEFTRIAXONE PMX 2GM/50ML 50 ML IV SCH (10:11)
[2020-03-18 12:28] VITALS: BP 151/107
[2020-03-18] MEDS: ACETAMINOPHEN 500 MG TABLET PO PRN (12:35)
[2020-03-18 19:08] VITALS: BP 167/95
[2020-03-18] MEDS ORDERED: MELATONIN 5 MG TABLET PO ONE (23:00)
[2020-03-19 00:48] VITALS: BP 144/85
[2020-03-19 07:02] VITALS: BP 173/108
[2020-03-19] MEDS: FOLIC ACID 1 MG TABLET PO SCH (08:30)
[2020-03-19] MEDS: MULTIVITAMINS/MINERALS TABLET PO SCH (08:30)
[2020-03-19] MEDS: THIAMINE 100MG TABLET PO SCH (08:30)
[2020-03-19] MEDS: CEFTRIAXONE PMX 2GM/50ML 50 ML IV SCH (10:04)
[2020-03-19 14:16] VITALS: BP 114/71
[2020-03-19] MEDS: ACETAMINOPHEN 500 MG TABLET PO PRN (16:01)
[2020-03-19] MEDS: MELATONIN 5 MG TABLET PO SCH (20:10)
[2020-03-19 21:01] VITALS: BP 142/89
[2020-03-20 00:39] VITALS: BP 152/93
[2020-03-20 07:58] VITALS: BP 136/78
[2020-03-20] MEDS: THIAMINE 100MG TABLET PO SCH (09:51)
[2020-03-20] MEDS: CEFTRIAXONE PMX 2GM/50ML 50 ML IV SCH (09:51)
[2020-03-20] MEDS: MULTIVITAMINS/MINERALS TABLET PO SCH (09:51)
[2020-03-20] MEDS: FOLIC ACID 1 MG TABLET PO SCH (09:51)
[2020-03-20] MEDS ORDERED: CALC200T24 PO (10:10)
[2020-03-20] MEDS ORDERED: CLON0.1T22 PO (10:10)
[2020-03-20] MEDS ORDERED: ACET500T64 PO (10:10)
[2020-03-20] MEDS ORDERED: CEFT2PIG2 IVPush (10:10)
[2020-03-20] MEDS ORDERED: MULT-484 PO (10:10)
[2020-03-20] MEDS ORDERED: DOCU100C33 PO (10:10)
[2020-03-20] MEDS ORDERED: FOLI-17 PO (10:10)
[2020-03-20] MEDS ORDERED: THIA100T67 PO (10:10)
[2020-03-20] MEDS ORDERED: MELA5TAB14 PO (10:10)
[2020-03-20] MEDS ORDERED: ONDA4TAB13 PO (10:10)
[2020-03-20] MEDS: LISINOPRIL 10 MG TABLET PO SCH (12:04)
[2020-03-20 13:15] VITALS: BP 133/77
[2020-03-20] MEDS: ACETAMINOPHEN 500 MG TABLET PO PRN (16:35)
[2020-03-20 18:52] VITALS: BP 138/85
[2020-03-20] MEDS: MELATONIN 5 MG TABLET PO SCH (20:37)
[2020-03-21 02:39] VITALS: BP 131/82
[2020-03-21] MEDS: ACETAMINOPHEN 500 MG TABLET PO PRN (06:43)
[2020-03-21 06:46] VITALS: BP 127/77
[2020-03-21] MEDS: LISINOPRIL 10 MG TABLET PO SCH (10:26)
[2020-03-21] MEDS: FOLIC ACID 1 MG TABLET PO SCH (10:26)
[2020-03-21] MEDS: MULTIVITAMINS/MINERALS TABLET PO SCH (10:26)
[2020-03-21] MEDS: THIAMINE 100MG TABLET PO SCH (10:26)
[2020-03-21] MEDS: CEFTRIAXONE PMX 2GM/50ML 50 ML IV SCH (10:27)
[2020-03-21 13:15] VITALS: BP 115/73
[2020-03-21] MEDS ORDERED: PERMETHRIN CRM 5%, 60GM TP ONE (14:00)
[2020-03-21 20:31] VITALS: BP 124/77
[2020-03-21] MEDS: MELATONIN 5 MG TABLET PO SCH (20:48)
[2020-03-22 01:26] VITALS: BP 109/72
[2020-03-22 09:22] VITALS: BP 136/78
[2020-03-22] MEDS: MULTIVITAMINS/MINERALS TABLET PO SCH (09:31)
[2020-03-22] MEDS: LISINOPRIL 10 MG TABLET PO SCH (09:31)
[2020-03-22] MEDS: FOLIC ACID 1 MG TABLET PO SCH (09:31)
[2020-03-22] MEDS: CEFTRIAXONE PMX 2GM/50ML 50 ML IV SCH (09:31)
[2020-03-22] MEDS: THIAMINE 100MG TABLET PO SCH (09:31)
[2020-03-22] MEDS: SENNA/DOCUSATE TABLET PO SCH (12:30)
[2020-03-22 14:00] VITALS: BP 104/68
[2020-03-22] MEDS: ACETAMINOPHEN 500 MG TABLET PO PRN (18:11)
[2020-03-22 19:21] VITALS: BP 135/82
[2020-03-22] MEDS: MELATONIN 5 MG TABLET PO SCH (21:39)
[2020-03-23 01:45] VITALS: BP 145/87
[2020-03-23] MEDS: ACETAMINOPHEN 500 MG TABLET PO PRN (03:47)
[2020-03-23 07:05] VITALS: BP 117/72
[2020-03-23] MEDS: THIAMINE 100MG TABLET PO SCH (09:14)
[2020-03-23] MEDS: FOLIC ACID 1 MG TABLET PO SCH (09:14)
[2020-03-23] MEDS: MULTIVITAMINS/MINERALS TABLET PO SCH (09:14)
[2020-03-23] MEDS: LISINOPRIL 10 MG TABLET PO SCH (09:14)
[2020-03-23] MEDS: SENNA/DOCUSATE TABLET PO SCH (09:14)
[2020-03-23] MEDS: CEFTRIAXONE PMX 2GM/50ML 50 ML IV SCH (09:15)
[2020-03-23 14:03] VITALS: BP 146/74
[2020-03-23 19:54] VITALS: BP 93/54
[2020-03-23] MEDS: MELATONIN 5 MG TABLET PO SCH (22:08)
[2020-03-24 00:47] VITALS: BP 125/71
[2020-03-24 07:12] VITALS: BP 117/74
[2020-03-24] MEDS: THIAMINE 100MG TABLET PO SCH (07:47)
[2020-03-24] MEDS: SENNA/DOCUSATE TABLET PO SCH (07:47)
[2020-03-24] MEDS: LISINOPRIL 10 MG TABLET PO SCH (07:47)
[2020-03-24] MEDS: MULTIVITAMINS/MINERALS TABLET PO SCH (07:47)
[2020-03-24] MEDS: FOLIC ACID 1 MG TABLET PO SCH (07:47)
[2020-03-24] MEDS: CEFTRIAXONE PMX 2GM/50ML 50 ML IV SCH (09:53)
[2020-03-24] MEDS ORDERED: LISI-167 PO (12:18)
[2020-03-24 13:24] VITALS: BP 101/65
== END 2020-03-24 14:57 | DRG 872 ==
LOC: ED 06:27 → EDIP 08:36 → 3N 15:18
PROVIDERS: ADMIT Internal Medicine; ATTEND Hospitalist
DX: A41.51 Sepsis due to Escherichia coli [E. coli] (principal); N39.0 Urinary tract infection, site not specified; E46 Unspecified protein-calorie malnutrition; I50.30 Unspecified diastolic (congestive) heart failure; I73.9 Peripheral vascular disease, unspecified; K40.90 Unilateral inguinal hernia, without obstruction or gangrene, not specified as recurrent; K57.30 Diverticulosis of large intestine without perforation or abscess without bleeding; Z20.828 Contact with and (suspected) exposure to other viral communicable diseases; B86 Scabies; I11.0 Hypertensive heart disease with heart failure; I77.810 Thoracic aortic ectasia; Z88.5 Allergy status to narcotic agent; G89.29 Other chronic pain; M54.9 Dorsalgia, unspecified; F10.10 Alcohol abuse, uncomplicated; M54.10 Radiculopathy, site unspecified; Z59.0 Homelessness; Z82.5 Family history of asthma and other chronic lower respiratory diseases; Z87.891 Personal history of nicotine dependence; Z90.49 Acquired absence of other specified parts of digestive tract; Z68.25 Body mass index [BMI] 25.0-25.9, adult
CPT/HCPCS: 36415; 71045; 74177; 76770; 76870; 80053; 80307; 81001; 82962; 84145; 85025; 85651; 86140; 87040; 87077; 87086; 87186; 87324; 87635; 93005; 93306; 93975; 96374; 96375; 99285; G0378; J0696; J2405; J3480; Q0162; Q9967

== ENCOUNTER 2020-06-11 03:56 | Emergency (ER) | payer MEDICARE ==
[~2020-06-11] VITALS: Ht 172.7 cm; Wt 75.5 kg
[~2020-06-11 03:56] MED LIST changes: +ACET500T64 PO; +CALC200T24 PO; +CEFT2PIG2 IVPush; +CLON0.1T22 PO; +DOCU100C33 PO; +MELA5TAB14 PO; +ONDA4TAB13 PO; -PANT40TA5 PO; +PANT40TA6 PO
[2020-06-11 04:03] VITALS: BP 121/82
--- NOTE | 2020-06-11 04:45 | NUR ---
Patient/Caregiver given discharge instructions and they have confirmed that they understand the instructions. Patient ambulatory with steady gait.
== END 2020-06-11 04:48 | disposition home or self-care (01) ==
LOC: ED 04:37
DX: B86 Scabies (principal); Z72.9 Problem related to lifestyle, unspecified
CPT/HCPCS: 99283

== ENCOUNTER 2020-07-05 22:04 | Emergency (ER) | payer MEDICARE ==
[~2020-07-05] VITALS: Ht 170.2 cm; Wt 74.8 kg
[2020-07-05 22:12] VITALS: BP 145/78
--- NOTE | 2020-07-05 22:26 | NUR ---
PT SEEN BY PA IN TRIAGE. VSS. PT REFUSING TO STAY FOR TREATMENT AND IS LEAVING AMA. PT EDUCATED ND ENCOURAGED TO STAY BUT PT REFUSED.
== END 2020-07-05 22:29 | disposition left against medical advice (07) ==
LOC: ED 22:14
DX: S01.119A Laceration without foreign body of unspecified eyelid and periocular area, initial encounter (principal); Z53.21 Procedure and treatment not carried out due to patient leaving prior to being seen by health care provider; W11.XXXA Fall on and from ladder, initial encounter; Y93.89 Activity, other specified; Y92.89 Other specified places as the place of occurrence of the external cause; Y99.8 Other external cause status